=== PATIENT | male | born 1990 | race Caucasian/White ===

== ENCOUNTER 2021-04-02 12:11 | Outpatient (CLI) | payer BC, SELFPAY ==
--- NOTE | 2021-04-02 12:20 | XR_ITS ---
WS: [id number] Lumbar spine, 3 views, 04/02/2021 Clinical Data: LOW BACK PAIN, ACUTE Comparison: None. Findings: No compression fractures or subluxation is seen. No disc space narrowing is seen. The transverse proc esses and SI joints are normal. XR/XR lumbar spine 2-3V* [id number] Impression: Negative lumbar spine.
== END 2021-04-02 12:12 | disposition home or self-care (01) ==
LOC: RAD 12:18
PROVIDERS: PCP Nurse Practitioner Family; Visit Provider Clinical Nurse Specialist Adult Health
DX: M54.5 Low back pain (principal)
CPT/HCPCS: 72100

== ENCOUNTER 2021-05-31 07:02 | Emergency (ER) | payer BC, SELFPAY ==
[2021-05-31 07:12] VITALS: BP 142/93; PULSE 79; RESP 18; TEMP 36.3; O2SAT 98; BMI 47.5
--- NOTE | 2021-05-31 07:37 | CT_ITS ---
WS: [id number] CT ABDOMEN AND PELVIS NONCONTRAST HISTORY: right flank pain TECHNIQUE: Imaging performed through the abdomen and pelvis. Coronal and sagittal reformats are submi tted. All CT scans at [facility] use at least one of these dose optimization techniques: auto mated exposure control; mA and/or kV adjustment per patient size (includes targeted exams where dose is matched to clinical indication); or iterative reconstruction. DLP: 2429.22 mGy.cm COMPARISON: None available. Lower thorax: 3 mm noncalcified RIGHT lower lobe nodule. Heart size is normal. No hiatal hernia. Liver: Extensive diffuse low attenuation throughout the liver from hepatic steatosis. Liver is top no rmal size. No mass or bile duct dilatation. Gallbladder: Normal gallbladder. Pancreas: Normal size and attenuation. Normal pancreatic duct. No pancreatitis or mass. Spleen: Normal. Adrenal glands: Normal. No mass. Right kidney: Normal size kidney. There is mild dilatation of the RIGHT renal pelvis and proximal RIG HT ureter secondary to a 4.4 mm calcification in the proximal ureter. Ureter distal to this calcifica tion is normal caliber. No additional stones. Left kidney: Normal size kidney with no mass or hydronephrosis. Aorta: Normal abdominal aorta, no aneurysm or atherosclerosis. No free fluid, intraperitoneal air or significant lymphadenopathy. GI tract: Normal appendix. No GI tract obstruction. No wall thickening. Abdominal wall: Negative. No hernia. Pelvis: Normal. Osseous structures: Mild disc space narrowing at L5-S1 with foraminal osteophytes. CT/CT kidney stone [id number] IMPRESSION: 1. Mild RIGHT hydroureter ureteronephrosis secondary to a 4.4 mm calcification in the proximal ureter. 2. No additional renal or ureteral calcifications. 3. Normal appendix. 4. Severe hepatic steatosis. 5. Noncalcified 3 mm RIGHT lower lobe pulmonary nodule. 12 month noncontrast c hest CT follow-up can be performed at the discretion of the primary care physic
--- NOTE | 2021-05-31 07:39 | ED_ITS ---
Documented by User: PAPITO Combs 05/31/21 10:06 HPI - Back Pain/Injury General: Chief Complaint: Back Pain/Injury Stated Complaint: Lower Back Pain Time Seen by Provider: 05/31/21 07:05 History of Present Illness: HPI Narrative: Patient is a 30-year-old male who comes to the ED with right lower back/right flank pain. Patient has a history of kidney stones. He says that this pain seems similar to past kidney stones. Symptoms started last night when he went to bed. onset of symptoms was abrupt/sudden and he was feeling 8 out of 10 pain in his right lower back and right flank that he describes as an aching constant pain. He says he could not get comfortable and tossed and turned and move around all night. He got up this morning and he was still having that aching pain. Resting does not help pain and movement does not worsen pain. Here in the ED he rates his pain a 7 out of 10 and its a constant aching pain in his right flank. He endorses having some nausea but denies any emesis. Denies any fever, chills, emesis, abdominal pain, bladder or bowel symptoms. Associated symptoms: Reports nausea; Deny abdominal pain, chills, dysuria, fatigue, fever(s), hematuria or vomiting Review of Systems Const: Denies: fever(s), chills or fatigue Eyes: Denies: change in vision or eye discomfort ENMT: Denies: throat pain, odynophagia, nasal discharge or nasal congestion Card: Denies: chest pain, palpitations, edema, swelling of feet/ankles, dyspnea on exertion or orthopnea Resp: Denies: dyspnea, productive cough or non-productive cough GI: Reports: nausea; Denies: abdominal pain, vomiting, diarrhea, constipation or hematochezia : Reports: flank pain (right flank); Denies: difficulty urinating, dysuria or hematuria Musc: Reports: back pain (right lower back); Denies: neck pain or extremity swelling Skin/Breast: Denies: rash or new lesions Neuro: Denies: headache(s), numbness in extremities or weakness in extremities Physical Exam Narrative: EXAM NARRATIVE: Patient is a 30-year-old male that appears uncomfortable and frequently changing positions during exam to get comfortable. Const: COMMON NORMALS: patient oriented x3 and alert GENERAL APPEARANCE: cooperative and comfortable NUTRITIONAL APPEARANCE: obese HENMT: COMMON NORMALS: normocephalic HEAD & SCALP: normocephalic MOUTH: Normal oral and palatal mucosa present THROAT: posterior oropharynx normal and uvula midline Eye: COMMON NORMALS: Equal, round and reactive pupils present PUPIL: Yes Equal, round and reactive pupils present Neck/C-Spine: COMMON NORMALS: supple GENERAL: Yes normal visual inspection Resp: COMMON NORMALS: normal respiratory effort, No retractions, No use of accessory muscles and clear to auscultation bilaterally AUSCULTATION: clear to auscultation bilaterally Cardio: COMMON NORMALS: regular rate, regular rhythm, S1 normal heart sound present, S2 normal heart sound present, No gallops present (Cardio), No clicks present (Cardio), No murmurs present (Cardio) and Peripheral pulses 2+ throughout RATE: regular rate RHYTHM: regular rhythm HEART SOUNDS: S1 normal heart sound present and S2 normal heart sound present PERIPHERAL PULSES: Peripheral pulses 2+ throughout GI: COMMON NORMALS: Normal to inspection, nondistended, normoactive bowel sounds present, Soft to palpation, non-tender and no masses INSPECTION: Yes central obesity PALPATION: Yes Soft to palpation : COMMON NORMALS: Yes no CVA tenderness BLADDER/KIDNEY EXAM: Yes no CVA tenderness Back/Pelvis: COMMON NORMALS: no CVA tenderness Extremity: COMMON NORMALS: normal to inspection Neuro: COMMON NORMALS: patient oriented x3 and moves all extremities SENSORIUM/ORIENTATION: Yes alert Skin: GENERAL SKIN EXAM: dry skin Course Reevaluation(s): Reevaluation #1: After patient received IV morphine and Zofran his pain improved greatly. He is sitting comfortably on the exam bed and says his pain is very minimal at this point. Time: 09:00 Vital Signs: Vital signs: Vital Signs Temperature 97.9 F 05/31/21 07:52 Pulse Rate 80 05/31/21 09:45 Respiratory Rate 18 05/31/21 09:45 Blood Pressure 142/77 05/31/21 09:45 Pulse Oximetry 98 05/31/21 09:45 MDM - Back Pain/Injury MDM Narrative: Medical decision making narrative: Patient is a 30-year-old male comes to the ED with right lower back/right flank pain. He has a history of kidney stones and says this is similar to his past episodes of kidney stones. Pain was acute in onset late last night. Vitals are stable. Patient appears nontoxic and seems a little uncomfortable and is moving her and frequently changing positions during exam. No CVA tenderness noted and rest of exam was benign. CBC showed white blood cell count 12.4 but the rest of CBC and CMP were unremarkable. UA did show some RBCs, but no signs of infection. CT abdomen showed 4.4mm Right proximal ureter kidney stone patient was given IV 1 L fluids, morphine and Zofran and as symptoms improved greatly. She was having minimal pain after dose of morphine. He was also given dose of tamsulosin while here in the ED. I placed order with case management for patient to get a referral to Dr. Wilde for follow-up on kidney stone. He was discharged home with a prescription for tamsulosin, hydrocodone, Zofran. He was instructed to strain urine to catch stone. Return to ED precautions given. I told manager payment will contact him in the next several days set up an appointment with urologist Dr. Wilde. Patient understood and agree with plan. Lab Data: Attestation: I reviewed the patient's lab results. Labs: Lab Results 05/31/21 05/31/21 05/31/21 08:13 08:13 08:14 WBC 12.4 10^3/uL H 10 ^3/uL (4.0-10.0) RBC 4.99 10^6/uL 10^6 /uL (4.1-5.3) Hgb 15.4 g/dL g/dL (11.7-16.6) Hct 46.7 % % (42.0-52.0) MCV 93.6 fl fl (80-94) MCH 30.9 pg pg (28.0-34.0) MCHC 33.0 g/dL g/dL (30.0-36.0) RDW 13.2 % % (12.1-15.1) Plt Count 227 10^3/cmm 10^3 /cmm (130-400) MPV 11.1 fL H fL (7.4-10.4) Neut % (Auto) 72.3 % % Lymph % (Auto) 17.7 % % [place] % (Auto) 7.0 % % Eos % (Auto) 2.1 % % Baso % (Auto) 0.6 % % Neut # (Auto) 8.93 10^3/uL H 10 ^3/uL (1.8-7.7) Lymph # (Auto) 2.2 10^3/uL 10^3/ uL (0.8-4.8) [place] # (Auto) 0.9 10^3/uL 10^3/ uL (0.2-0.9) Eos # (Auto) 0.3 10^3/uL 10^3/ uL (0.0-0.8) Baso # (Auto) 0.1 10^3/uL 10^3/ uL (0.0-0.1) Nucleated RBC % (a uto) 0 % % Nucleated RBCs # 0.0 /100WBC /100W BC Sodium 138 mmol/L mmol/L (136-145) Potassium 4.5 mmol/L mmol/L (3.5-5.1) Chloride 103 mmol/L mmol/L (98-107) Carbon Dioxide 24 mmol/L mmol/L (22-29) Anion Gap 15.5 (5-19) BUN 12 mg/dL mg/dL (6-20) Creatinine 0.7 mg/dL mg/dL (0.7-1.2) GFR Calculation 132.4 mL/min H mL /min (90-130) Glucose 126 mg/dL H mg/dL (65-115) Calculated Osmolal ity 287 mOsm/kg mOsm/ kg (285-295) Calcium 9.3 mg/dL mg/dL (8.5-10.5) Total Bilirubin 0.3 mg/dL mg/dL (0.15-1.2) AST 26 U/L U/L (0-40) ALT 40 U/L U/L (0-41) Alkaline Phosphata se 80 IU/L IU/L (40-130) Total Protein 6.9 g/dL g/dL (6.6-8.7) Albumin 4.0 g/dL g/dL (3.5-5.2) Globulin 2.9 g/dL g/dL (1.3-4.6) Urine Color Dark yellow (Yellow) Urine Appearance Clear (CLEAR) Urine pH 5 (5-7) Ur Specific Gravit y 1.020 (1.005-1.030) Urine Protein Neg (Negative) Urine Glucose (UA) Norm (Normal) Urine Ketones Negative (Negative) Urine Blood 3+ H (Negative) Urine Nitrate Negative (Negative) Urine Bilirubin Neg (Negative) Urine Urobilinogen Norm mg/dL mg/dL (Negative) Ur Leukocyte Greer ase Negative (Negative) Urine RBC 10-15 /hpf H /hpf (0-2) Urine WBC 0-4 /hpf H /hpf (0-5) Ur Squamous Epith Cells None /hpf /hpf (0-5) Amorphous Sediment Not Reportable Urine Bacteria 1+ /hpf H /hpf (NONE) Urine Mucus Trace /hpf /hpf Imaging Data^: CT Abd/Pel: Attestation: I personally reviewed and interpreted this imaging study as follows: Radiologist's impression: [id number] [address] [address] Scan Report Signed Patient: Nixon Cook Unit #: [id number] : 1990 Age/Sex: 30 / M ADM Date: 05/31/21 Loc: ER Room/Bed: Attending Dr: Ordering Provider/Ordering MD: Nitish Marcos Date of Service: 05/31/21 Procedure(s): CT kidney stone 90117 Accession Number(s): [id number] Report Number: [id number] WS: [id number] CT ABDOMEN AND PELVIS NONCONTRAST HISTORY: right flank pain TECHNIQUE: Imaging performed through the abdomen and pelvis. Coronal and sagittal reformats are submitted. All CT scans at [facility] use at least one of these dose optimization techniques: automated exposure control; mA and/or kV adjustment per patient size (includes targeted exams where dose is matched to clinical indication); or iterative reconstruction. DLP: 2429.22 mGy.cm COMPARISON: None available. Lower thorax: 3 mm noncalcified RIGHT lower lobe nodule. Heart size is normal. No hiatal hernia. Liver: Extensive diffuse low attenuation throughout the liver from hepatic steatosis. Liver is top normal size. No mass or bile duct dilatation. Gallbladder: Normal gallbladder. Pancreas: Normal size and attenuation. Normal pancreatic duct. No pancreatitis or mass. Spleen: Normal. Adrenal glands: Normal. No mass. Right kidney: Normal size kidney. There is mild dilatation of the RIGHT renal pelvis and proximal RIGHT ureter secondary to a 4.4 mm calcification in the proximal ureter. Ureter distal to this calcification is normal caliber. No additional stones. Left kidney: Normal size kidney with no mass or hydronephrosis. Aorta: Normal abdominal aorta, no aneurysm or atherosclerosis. No free fluid, intraperitoneal air or significant lymphadenopathy. GI tract: Normal appendix. No GI tract obstruction. No wall thickening. Abdominal wall: Negative. No hernia. Pelvis: Normal. Osseous structures: Mild disc space narrowing at L5-S1 with foraminal osteophytes. CT/CT kidney stone [id number] IMPRESSION: 1. Mild RIGHT hydroureter ureteronephrosis secondary to a 4.4 mm calcification in the proximal ureter. 2. No additional renal or ureteral calcifications. 3. Normal appendix. 4. Severe hepatic steatosis. 5. Noncalcified 3 mm RIGHT lower lobe pulmonary nodule. [address] follow-up can be performed at the discretion of the primary care physician. Dictated By: Carmen Leyva DO Signed By: Carmen Leyva DO Signed Date/Time: 03/13 DD/ 7 Discharge Plan Discharge Patient Disposition: Home Clinical Impression: Kidney stone on right side Condition: Stable Prescriptions: New tamsulosin 0.4 mg capsule 0.4 mg PO DAILY Qty: 20 RF: 0 ondansetron 4 mg tablet,disintegrating 4 mg PO Q8H PRN (Reason: nausea and vomiting) Qty: 12 RF: 0 Discharge Orders: Discharge ED (Routine); Ordered 05/31/21 Ordered By: Nitish Marcos Referrals: Susan Ramos BUSINESS PROCESS SPECIALIST [Primary Care Provider] - Discharge Diet: Regular Discharge Activity: Increase activity as tolerated Patient Instructions: Kidney Stones (ED), How to Strain Your Urine (ED), Opioid Safety Activity Restrictions/Additional Instructions: Follow-up with medical provider as directed. Case management should be contacting you in the next several days to set up an appointment with Dr. Wilde the urologist. Strain urine to catch stone and drink lots of fluid to stay hydrated and help pass stone. Take medications as prescribed. You can take ibuprofen or Aleve for any pain or fevers as well. Return to the ER or your medical provider if condition worsens. Please read and understand discharge instructions. If any questions, please ask. Coding Level of Care Code ED Lab Manager for Chg Fwd Exam Comprehensive Documented by User: Alvaro Burrows DO 05/31/21 14:22 HPI - Back Pain/Injury General: Chief Complaint: Back Pain/Injury Stated Complaint: Lower Back Pain Time Seen by Provider: 05/31/21 07:05 Course Vital Signs: Vital signs: Vital Signs Temperature 97.9 F 05/31/21 07:52 Pulse Rate 80 05/31/21 09:45 Respiratory Rate 18 05/31/21 09:45 Blood Pressure 142/77 05/31/21 09:45 Pulse Oximetry 98 05/31/21 09:45 MDM - Back Pain/Injury MDM Narrative: Medical decision making narrative: Chart reviewed Assessment and plan Lab Data: Labs: Lab Results 05/31/21 05/31/21 05/31/21 08:13 08:13 08:14 WBC 12.4 10^3/uL H 10 ^3/uL (4.0-10.0) RBC 4.99 10^6/uL 10^6 /uL (4.1-5.3) Hgb 15.4 g/dL g/dL (11.7-16.6) Hct 46.7 % % (42.0-52.0) MCV 93.6 fl fl (80-94) MCH 30.9 pg pg (28.0-34.0) MCHC 33.0 g/dL g/dL (30.0-36.0) RDW 13.2 % % (12.1-15.1) Plt Count 227 10^3/cmm 10^3 /cmm (130-400) MPV 11.1 fL H fL (7.4-10.4) Neut % (Auto) 72.3 % % Lymph % (Auto) 17.7 % % [place] % (Auto) 7.0 % % Eos % (Auto) 2.1 % % Baso % (Auto) 0.6 % % Neut # (Auto) 8.93 10^3/uL H 10 ^3/uL (1.8-7.7) Lymph # (Auto) 2.2 10^3/uL 10^3/ uL (0.8-4.8) [place] # (Auto) 0.9 10^3/uL 10^3/ uL (0.2-0.9) Eos # (Auto) 0.3 10^3/uL 10^3/ uL (0.0-0.8) Baso # (Auto) 0.1 10^3/uL 10^3/ uL (0.0-0.1) Nucleated RBC % (a uto) 0 % % Nucleated RBCs # 0.0 /100WBC /100W BC Sodium 138 mmol/L mmol/L (136-145) Potassium 4.5 mmol/L mmol/L (3.5-5.1) Chloride 103 mmol/L mmol/L (98-107) Carbon Dioxide 24 mmol/L mmol/L (22-29) Anion Gap 15.5 (5-19) BUN 12 mg/dL mg/dL (6-20) Creatinine 0.7 mg/dL mg/dL (0.7-1.2) GFR Calculation 132.4 mL/min H mL /min (90-130) Glucose 126 mg/dL H mg/dL (65-115) Calculated Osmolal ity 287 mOsm/kg mOsm/ kg (285-295) Calcium 9.3 mg/dL mg/dL (8.5-10.5) Total Bilirubin 0.3 mg/dL mg/dL (0.15-1.2) AST 26 U/L U/L (0-40) ALT 40 U/L U/L (0-41) Alkaline Phosphata se 80 IU/L IU/L (40-130) Total Protein 6.9 g/dL g/dL (6.6-8.7) Albumin 4.0 g/dL g/dL (3.5-5.2) Globulin 2.9 g/dL g/dL (1.3-4.6) Urine Color Dark yellow (Yellow) Urine Appearance Clear (CLEAR) Urine pH 5 (5-7) Ur Specific Gravit y 1.020 (1.005-1.030) Urine Protein Neg (Negative) Urine Glucose (UA) Norm (Normal) Urine Ketones Negative (Negative) Urine Blood 3+ H (Negative) Urine Nitrate Negative (Negative) Urine Bilirubin Neg (Negative) Urine Urobilinogen Norm mg/dL mg/dL (Negative) Ur Leukocyte Greer ase Negative (Negative) Urine RBC 10-15 /hpf H /hpf (0-2) Urine WBC 0-4 /hpf H /hpf (0-5) Ur Squamous Epith Cells None /hpf /hpf (0-5) Amorphous Sediment Not Reportable Urine Bacteria 1+ /hpf H /hpf (NONE) Urine Mucus Trace /hpf /hpf Discharge Plan Discharge Patient Disposition: Home Clinical Impression: Kidney stone on right side Condition: Stable Prescriptions: New tamsulosin 0.4 mg capsule 0.4 mg PO DAILY Qty: 20 RF: 0 ondansetron 4 mg tablet,disintegrating 4 mg PO Q8H PRN (Reason: nausea and vomiting) Qty: 12 RF: 0 Discharge Orders: Discharge ED (Routine); Ordered 05/31/21 Ordered By: Nitish Marcos Referrals: Susan Ramos BUSINESS PROCESS SPECIALIST [Primary Care Provider] - Discharge Diet: Regular Discharge Activity: Increase activity as tolerated Patient Instructions: Kidney Stones (ED), How to Strain Your Urine (ED), Opioid Safety Activity Restrictions/Additional Instructions: Follow-up with medical provider as directed. Case management should be contacting you in the next several days to set up an appointment with Dr. Wilde the urologist. Strain urine to catch stone and drink lots of fluid to stay hydrated and help pass stone. Take medications as prescribed. You can take ibuprofen or Aleve for any pain or fevers as well. Return to the ER or your medical provider if condition worsens. Please read and understand discharge instructions. If any questions, please ask. Coding Level of Care Code ED Lab Manager for [place] Fwd Exam Comprehensive
[2021-05-31 07:52] VITALS: BP 116/92; PULSE 87; RESP 18; TEMP 36.6; O2SAT 98
[2021-05-31 08:24] LABS: Basophils # 0.1 10^3/uL (0.0-0.1); Basophils % 0.6 %; Eosinophils # 0.3 10^3/uL (0.0-0.8); Eosinophils % 2.1 %; Hematocrit 46.7 % (42.0-52.0); Hemoglobin 15.4 g/dL (11.7-16.6); Lymphocytes # 2.2 10^3/uL (0.8-4.8); Lymphocytes % 17.7 %; Mean Corpuscular Hemoglobin 30.9 pg (28.0-34.0); Mean Corpuscular Volume 93.6 fl (80-94); Mean Platelet Volume 11.1 fL (7.4-10.4); Monocytes # 0.9 10^3/uL (0.2-0.9); Neutrophils # 8.93 10^3/uL (1.8-7.7); Neutrophils % 72.3 %; Nucleated Red Blood Cells % 0 %; Platelet Count 227 10^3/cmm (130-400); Red Blood Count 4.99 10^6/uL (4.1-5.3); Red Cell Distribution Width 13.2 % (12.1-15.1); White Blood Count 12.4 10^3/uL (4.0-10.0)
[2021-05-31] MEDS: sodium chloride 0.9% 1,000 ML 999 ML IV (08:28)
[2021-05-31] MEDS: ondansetron 2 mg/ML SDV 2 mL 4 MG IVP (08:29)
[2021-05-31 08:30] VITALS: RESP 19; O2SAT 97
[2021-05-31] MEDS: morphine 4 mg/mL SDV 1 mL IVP (08:30)
[2021-05-31 08:40] LABS: Add Urine Microscopic? YES; Bilirubin Urine Neg (Negative); Blood Urine 3+ (Negative); Glucose Urine UA Norm (Normal); Ketones Urine Negative (Negative); Leukocyte Esterase Urine Negative (Negative); Nitrate Urine Negative (Negative); Protein Urine Neg (Negative); Urine Appearance Clear (CLEAR); Urine Color Dark Yellow (Yellow); Urobilinogen Urine Norm (Negative); pH Urine 5 (5-7)
[2021-05-31 08:41] LABS: Add Urine Culture? Yes; Bacteria Urine 1+ /hpf; Mucus Urine TRACE /hpf; WBC Urine 0-4 /hpf (0-5)
[2021-05-31 08:45] LABS: Alanine Aminotransferase 40 U/L (0-41); Alkaline Phosphatase 80 IU/L (40-130); Anion Gap 15.5 (5-19); Aspartate Amino Transferase 26 U/L (0-40); Blood Urea Nitrogen 12 mg/dL (6-20); Calcium 9.3 mg/dL (8.5-10.5); Carbon Dioxide 24 mmol/L (22-29); Chloride 103 mmol/L (98-107); Globulin 2.9 g/dL (1.3-4.6); Glomerular Filtration Rate 132.4 mL/min (90-130); Glucose 126 mg/dL (65-115); Osmolality Calculated 287 mOsm/kg (285-295); Potassium 4.5 mmol/L (3.5-5.1); Sodium 138 mmol/L (136-145); Total Bilirubin 0.3 mg/dL (0.15-1.2); Total Protein 6.9 g/dL (6.6-8.7)
[2021-05-31] MEDS: tamsulosin 0.4 mg Capsule PO (09:31)
[2021-05-31 09:32] VITALS: BP 142/77; PULSE 84; RESP 18; O2SAT 99
[2021-05-31 09:45] VITALS: BP 142/77; PULSE 80; RESP 18; O2SAT 98
--- NOTE | 2021-06-01 10:00 | DCPLANNER ---
camp manager had message to schedule a follow up appointment for patient with Dr. Wilde. camp manager called the office of Dr. Wilde, spoke with Veda, gave clinic patients information. camp manager was told that patients information would be printed and reviewed. Clinic will call patient with appointment information.
--- NOTE | 2021-06-02 15:27 | DCPLANNER ---
Patient has a follow up appointment scheduled for Monday, June 04, 2021 at 9:[address] Wilde, clinic will call patient with appointment information.
--- NOTE | 2021-06-10 16:25 | DCPLANNER ---
Patient had a follow up appointment scheduled for 06.04.[address] Wilde - patient did attend appointment.
== END 2021-05-31 09:46 | disposition home or self-care (01) ==
PROVIDERS: Emergency Provider Physician Assistant; PCP Nurse Practitioner Family
DX: N20.0 Calculus of kidney (principal)
CPT/HCPCS: 74176; 80053; 81001; 85025; 87086; 96361; 96374; 96375; 99284; J2270; J2405; J7030

== ENCOUNTER 2021-06-04 07:20 | Outpatient (CLI) | payer BC, SELFPAY ==
--- NOTE | 2021-06-04 08:00 | XR_ITS ---
WS: [id number] KUB, AP view, 06/04/2021 Clinical Data: kidney stone Comparison: None. Findings: No abnormal intraabdominal masses or calcifications are seen. There is no dilatated small bowel or ev idence of obstruction. There is a moderate amount of fecal material in the colon. XR/XR KUB [id number] Impression: Negative KUB.
== END 2021-06-04 07:21 | disposition home or self-care (01) ==
LOC: RAD 07:22
PROVIDERS: PCP Nurse Practitioner Family; Visit Provider Urology
DX: N20.0 Calculus of kidney (principal)
CPT/HCPCS: 74018; 81003

== ENCOUNTER 2021-06-10 07:09 | Outpatient (CLI) | payer BC, SELFPAY ==
--- NOTE | 2021-06-10 07:15 | XR_ITS ---
WS: [id number] Exam: XR KUB [id number] Date/Time of Exam: 06/10/2021 7:15 AM Reason For Exam: URETERAL STONE Comparison 06/04/2021. No bowel obstruction or free air. No obvious calcifications projected over the region of the kidneys. No organ enlargement seen. Regional bony elements are intact. XR/XR KUB [id number] IMPRESSION: 1. Negative KUB.
== END 2021-06-10 07:10 | disposition home or self-care (01) ==
LOC: RAD 07:10
PROVIDERS: PCP Nurse Practitioner Family; Visit Provider Urology
DX: N20.1 Calculus of ureter (principal)
CPT/HCPCS: 74018; 81003

== ENCOUNTER 2021-06-14 19:08 | Observation (INO) | payer BC, SELFPAY ==
[2021-06-14 19:15] VITALS: BP 146/98; PULSE 98; RESP 18; TEMP 37; O2SAT 97; BMI 42.5
[2021-06-14 20:31] LABS: Add Urine Microscopic? YES; Bilirubin Urine 1+ (Negative); Blood Urine 3+ (Negative); Glucose Urine UA Norm (Normal); Ketones Urine 1+ (Negative); Leukocyte Esterase Urine Trace (Negative); Nitrate Urine Positive (Negative); Protein Urine 1+ (Negative); Specific Gravity, Urine 1.025 (1.005-1.030); Urine Appearance Cloudy (CLEAR); Urine Color Brown (Yellow); Urobilinogen Urine 4 mg/dL (Negative); pH Urine 5 (5-7)
[2021-06-14 20:32] LABS: Add Urine Culture? No; Bacteria Urine 1+ /hpf; Calcium Oxalate Crystals Urine 0-4 /hpf; RBC Urine TOO NUMEROUS TO CNT /hpf (0-2); Squamous Epithelial Cell Urine 15-25 /hpf (0-5)
[2021-06-14 22:18] LABS: Basophils # 0.1 10^3/uL (0.0-0.1); Basophils % 0.4 %; Eosinophils # 0.2 10^3/uL (0.0-0.8); Hematocrit 45.3 % (42.0-52.0); Hemoglobin 15.3 g/dL (11.7-16.6); Lymphocytes # 2.5 10^3/uL (0.8-4.8); Mean Corpuscular HGB Conc 33.8 g/dL (30.0-36.0); Mean Corpuscular Hemoglobin 30.8 pg (28.0-34.0); Mean Corpuscular Volume 91.3 fl (80-94); Mean Platelet Volume 11.8 fL (7.4-10.4); Monocytes # 1.8 10^3/uL (0.2-0.9); Monocytes % 9.7 %; Neutrophils # 14.22 10^3/uL (1.8-7.7); Neutrophils % 75.4 %; Nucleated Red Blood Cells % 0 %; Platelet Count 247 10^3/cmm (130-400); Red Blood Count 4.96 10^6/uL (4.1-5.3); Red Cell Distribution Width 13.2 % (12.1-15.1); White Blood Count 18.9 10^3/uL (4.0-10.0)
--- NOTE | 2021-06-14 22:19 | W.ED.GENADLT ---
Documented by User: Ivan Bernstein MD 06/14/21 23:04 HPI - General Adult General: Chief complaint: Back Pain/Injury Stated complaint: ADB Pain (Kidney Stones) Time Seen by Provider: 06/14/21 21:36 History of Present Illness: HPI narrative: HPI: [30] yo patient w/ hx of renal colic presenting to the ED w/ R-sided flank pain x 3 hrs while deer hutning. Patient describes the pain as sudden onset severe intermittent crampy pain lasting for 5-10 mins at a time. +N/+ since onset of symptoms and has not been able to tolerate PO. No prior abdominal surgeries. Denies fever/chill, dysuria/hematuria/polyuria, diarrhea, melena/hematochezia/ or hematemesis. No associated chest pain, SOB, palpitations, exertional shortness of breath and chest pain, or pleuritic chest pain. Onset: 3 hrs ago ago Duration: ongoing Location: home Severity: moderate Review of Systems Narrative: Constitutional: No fever, no chills. HEENT: No vision changes CV: No chest pain, no palpitations PULM: No productive cough, no dyspnea. GI: No abdominal pain, +N/+V/-D. +R-sided flank pain : No Dysuria, []hematuria MSKEL: No muscle pain SKIN: No new rashes, no lesions. NEURO: No headache, no focal weakness. HEME: No visible bruises PSYCH: Normal mood PFSH ED PFSH: Medical History Right ureteral stone Family History Other Cancer Diabetes Social History Alcohol intake: never Marital status: Current occupational status: employed Physical Exam Narrative: EXAM NARRATIVE: Head: Atraumatic Eyes: PERRL, conjunctiva without injection, eyes tracking ENT: Mucous membrane moist NECK: Supple without lymphadenopathy LUNGS: LCTAB CV: RRR ABDOMEN: Soft, diffuse abdominal tenderness worse in the [] flank, no guarding or rebound tenderness, no McBurney?s point tenderness, no Rovsing/Obturator signs, no Aly's sign, mild [][]-sided CVA tenderness EXTREMITY: Normal ROM SKIN: No rash or erythema NEURO: Awake and alert. No focal weakness PSYCH: Cooperative mood and affect Course Vital Signs: Vital signs: Vital Signs Temperature 98.6 F 06/14/21 19:15 Pulse Rate 85 06/14/21 23:17 Respiratory Rate 18 06/14/21 19:15 Blood Pressure 120/65 06/14/21 23:17 Pulse Oximetry 98 06/14/21 23:17 MDM - General Adult MDM Narrative: Medical decision making narrative: [30]yo patient w/ hx of renal colic followed by Dr. Wilde presenting R-sided flank pain with symptoms consistent with prior presentations of renal colic. Given History and Exam I have lower suspicion for atypical appendicitis, genital torsion, acute cholecystitis, AAA, Aortic Dissection, Serious Bacterial Illness or other emergent intra abdominal pathology. UA showed nitrate and LE with 2+ blood and WBC of 18, will evaluate for infected stone. Workup: CBC, BMP, UA, CT abdomen+pelvis w/ contrast Interventions: IVF, antiemetics, pain medicine, ceftriaxone and vancomycin Case signed out to Dr. Laws pending CT evaluation and reassessment Lab Data: Labs: Lab Results 06/14/21 06/14/21 06/14/21 19:46 20:55 20:55 WBC 18.9 10^3/uL H 10 ^3/uL (4.0-10.0) RBC 4.96 10^6/uL 10^6 /uL (4.1-5.3) Hgb 15.3 g/dL g/dL (11.7-16.6) Hct 45.3 % % (42.0-52.0) MCV 91.3 fl fl (80-94) MCH 30.8 pg pg (28.0-34.0) MCHC 33.8 g/dL g/dL (30.0-36.0) RDW 13.2 % % (12.1-15.1) Plt Count 247 10^3/cmm 10^3 /cmm (130-400) MPV 11.8 fL H fL (7.4-10.4) Neut % (Auto) 75.4 % % Lymph % (Auto) 13.0 % % [place] % (Auto) 9.7 % % Eos % (Auto) 1.0 % % Baso % (Auto) 0.4 % % Neut # (Auto) 14.22 10^3/uL H 1 0^3/uL (1.8-7.7) Lymph # (Auto) 2.5 10^3/uL 10^3/ uL (0.8-4.8) [place] # (Auto) 1.8 10^3/uL H 10^ 3/uL (0.2-0.9) Eos # (Auto) 0.2 10^3/uL 10^3/ uL (0.0-0.8) Baso # (Auto) 0.1 10^3/uL 10^3/ uL (0.0-0.1) Nucleated RBC % (a uto) 0 % % Nucleated RBCs # 0.0 /100WBC /100W BC Sodium 139 mmol/L mmol/L (136-145) Potassium 3.9 mmol/L mmol/L (3.5-5.1) Chloride 102 mmol/L mmol/L (98-107) Carbon Dioxide 23 mmol/L mmol/L (22-29) Anion Gap 17.9 (5-19) BUN 14 mg/dL mg/dL (6-20) Creatinine 0.9 mg/dL mg/dL (0.7-1.2) GFR Calculation 99.1 mL/min mL/mi n (90-130) Glucose 127 mg/dL H mg/dL (65-115) Calculated Osmolal ity 290 mOsm/kg mOsm/ kg (285-295) Calcium 8.6 mg/dL mg/dL (8.5-10.5) Total Bilirubin 0.4 mg/dL mg/dL (0.15-1.2) AST 34 U/L U/L (0-40) ALT 48 U/L H U/L (0-41) Alkaline Phosphata se 85 IU/L IU/L (40-130) Total Protein 7.1 g/dL g/dL (6.6-8.7) Albumin 4.1 g/dL g/dL (3.5-5.2) Globulin 3.0 g/dL g/dL (1.3-4.6) Lipase 20 U/L U/L (13-60) Urine Color Brown (Yellow) Urine Appearance Cloudy (CLEAR) Urine pH 5 (5-7) Ur Specific Gravit y 1.025 (1.005-1.030) Urine Protein 1+ H (Negative) Urine Glucose (UA) Norm (Normal) Urine Ketones 1+ H (Negative) Urine Blood 3+ H (Negative) Urine Nitrate Positive H (Negative) Urine Bilirubin 1+ H (Negative) Urine Urobilinogen 4 mg/dL H mg/dL (Negative) Ur Leukocyte Greer ase Trace H (Negative) Urine RBC Too numerous to c nt /hpf H /hpf (0-2) Urine WBC 10-15 /hpf H /hpf (0-5) Ur Squamous Epith Cells 15-25 /hpf H /hpf (0-5) Calcium Oxalate Cr ystal 0-4 /hpf H /hpf Amorphous Sediment Not Reportable Urine Bacteria 1+ /hpf H /hpf (NONE) Discharge Plan Discharge Patient Disposition: Admitted As Inpatient Clinical Impression: Right ureteral stone, Acute cystitis Condition: Stable Coding Level of Care Code ED [facility] for Chg Fwd Documented by User: Manny Laws MD 06/15/21 00:03 HPI - General Adult General: Chief complaint: Back Pain/Injury Stated complaint: ADB Pain (Kidney Stones) Time Seen by Provider: 06/14/21 21:36 PFSH ED PFSH: Medical History Right ureteral stone Family History Other Cancer Diabetes Social History Alcohol intake: never Marital status: Current occupational status: employed Course Vital Signs: Vital signs: Vital Signs Temperature 98.6 F 06/14/21 19:15 Pulse Rate 85 06/14/21 23:17 Respiratory Rate 18 06/14/21 19:15 Blood Pressure 120/65 06/14/21 23:17 Pulse Oximetry 98 06/14/21 23:17 MDM - General Adult MDM Narrative: Medical decision making narrative: Patient presents here with flank pain does have a kidney stone along with acute cystitis I spoke to Dr. Wilde who recommended admission will admit to Dr. Frederick started on IV antibiotics patient is to strain his urine while admitted. Lab Data: Labs: Lab Results 06/14/21 06/14/21 06/14/21 19:46 20:55 20:55 WBC 18.9 10^3/uL H 10 ^3/uL (4.0-10.0) RBC 4.96 10^6/uL 10^6 /uL (4.1-5.3) Hgb 15.3 g/dL g/dL (11.7-16.6) Hct 45.3 % % (42.0-52.0) MCV 91.3 fl fl (80-94) MCH 30.8 pg pg (28.0-34.0) MCHC 33.8 g/dL g/dL (30.0-36.0) RDW 13.2 % % (12.1-15.1) Plt Count 247 10^3/cmm 10^3 /cmm (130-400) MPV 11.8 fL H fL (7.4-10.4) Neut % (Auto) 75.4 % % Lymph % (Auto) 13.0 % % [place] % (Auto) 9.7 % % Eos % (Auto) 1.0 % % Baso % (Auto) 0.4 % % Neut # (Auto) 14.22 10^3/uL H 1 0^3/uL (1.8-7.7) Lymph # (Auto) 2.5 10^3/uL 10^3/ uL (0.8-4.8) [place] # (Auto) 1.8 10^3/uL H 10^ 3/uL (0.2-0.9) Eos # (Auto) 0.2 10^3/uL 10^3/ uL (0.0-0.8) Baso # (Auto) 0.1 10^3/uL 10^3/ uL (0.0-0.1) Nucleated RBC % (a uto) 0 % % Nucleated RBCs # 0.0 /100WBC /100W BC Sodium 139 mmol/L mmol/L (136-145) Potassium 3.9 mmol/L mmol/L (3.5-5.1) Chloride 102 mmol/L mmol/L (98-107) Carbon Dioxide 23 mmol/L mmol/L (22-29) Anion Gap 17.9 (5-19) BUN 14 mg/dL mg/dL (6-20) Creatinine 0.9 mg/dL mg/dL (0.7-1.2) GFR Calculation 99.1 mL/min mL/mi n (90-130) Glucose 127 mg/dL H mg/dL (65-115) Calculated Osmolal ity 290 mOsm/kg mOsm/ kg (285-295) Calcium 8.6 mg/dL mg/dL (8.5-10.5) Total Bilirubin 0.4 mg/dL mg/dL (0.15-1.2) AST 34 U/L U/L (0-40) ALT 48 U/L H U/L (0-41) Alkaline Phosphata se 85 IU/L IU/L (40-130) Total Protein 7.1 g/dL g/dL (6.6-8.7) Albumin 4.1 g/dL g/dL (3.5-5.2) Globulin 3.0 g/dL g/dL (1.3-4.6) Lipase 20 U/L U/L (13-60) Urine Color Brown (Yellow) Urine Appearance Cloudy (CLEAR) Urine pH 5 (5-7) Ur Specific Gravit y 1.025 (1.005-1.030) Urine Protein 1+ H (Negative) Urine Glucose (UA) Norm (Normal) Urine Ketones 1+ H (Negative) Urine Blood 3+ H (Negative) Urine Nitrate Positive H (Negative) Urine Bilirubin 1+ H (Negative) Urine Urobilinogen 4 mg/dL H mg/dL (Negative) Ur Leukocyte [place] a[place] Trace H (Negative) Urine RBC Too numerous to c nt /hpf H /hpf (0-2) Urine WBC 10-15 /hpf H /hpf (0-5) Ur Squamous Epith Cells 15-25 /hpf H /hpf (0-5) Calcium Oxalate Cr ystal 0-4 /hpf H /hpf Amorphous Sediment Not Reportable Urine Bacteria 1+ /hpf H /hpf (NONE) Imaging Data^: CT Abd/Pel: Attestation: I personally reviewed and interpreted this imaging study as follows: Radiologist's impression: [address] [place] [address] [place] [address] CT Scan Report Signed Patient: Nixon Cook Unit #: [id number] : 1990 Age/Sex: 30 / M ADM Date: 06/14/21 Loc: ER Room/Bed: Attending Dr: Ordering Provider/Ordering MD: Ivan Bernstein MD Date of Service: 06/14/21 Procedure(s): CT abdomen pelvis w con* [id number] Accession Number(s): [id number] Report Number: [id number] PROCEDURE INFORMATION: Exam: CT Abdomen And Pelvis With Contrast Exam date and time: 06/14/2021 10:21 PM Age: 30 years old Clinical indication: Abdominal pain; Localized; Right; Additional info: Eval for infected stone TECHNIQUE: Imaging protocol: Computed tomography of the abdomen and pelvis with contrast. Radiation optimization: All CT scans at this facility use at least one of these dose optimization techniques: automated exposure control; mA and/or kV adjustment per patient size (includes targeted exams where dose is matched to clinical indication); or iterative reconstruction. Contrast material: OMNI 350; Contrast volume: 95 ml; Contrast route: INTRAVENOUS (IV); COMPARISON: CR XR KUB [id number] 06/10/2021 7:21 AM RADIATION DOSE METRICS: Total DLP (mGy-cm): 2140.65 FINDINGS: Liver: Hepatic steatosis. Gallbladder and bile ducts: Normal. No calcified stones. No ductal dilation. Pancreas: Normal. No ductal dilation. Spleen: Normal. No splenomegaly. Adrenal glands: Normal. No mass. Kidneys and ureters: Right distal ureter 8 mm calculus with mild hydronephrosis and hydroureter. Stomach and bowel: Unremarkable. No obstruction. No mucosal thickening. Appendix: No evidence of appendicitis. Intraperitoneal space: Unremarkable. No free air. No significant fluid collection. Vasculature: Unremarkable. No abdominal aortic aneurysm. Lymph nodes: Unremarkable. No enlarged lymph nodes. Urinary bladder: Unremarkable as visualized. Reproductive: Unremarkable as visualized. Bones/joints: Unremarkable. No acute fracture. Soft tissues: Unremarkable. CT/CT abdomen pelvis w con* [id number] IMPRESSION: 1. Right distal ureter 8 mm calculus with mild hydronephrosis and hydroureter. 2. Hepatic steatosis. Radiation Dose CTDIVOL = (mGy): DLP = 2140.65 (mGy-cm) Dictated By: Lex Diaz MD Signed By: Lex Diaz MD Signed Date/Time: 06/14/21 0464 DD/ 20 Discharge Plan Discharge Patient Disposition: Admitted As Inpatient Clinical Impression: Right ureteral stone, Acute cystitis Condition: Stable Coding Level of Care Code ED [facility] for Kelby Bean
[2021-06-14] MEDS: sodium chloride 0.9% 1,000 ML 999 ML IV (22:24)
[2021-06-14] MEDS: ondansetron 2 mg/ML SDV 2 mL 4 MG IVP (22:25)
[2021-06-14] MEDS: morphine 4 mg/mL SDV 1 mL IVP (22:25)
[2021-06-14] MEDS: ketorolac 30 mg/mL INJ IVP (22:26)
[2021-06-14] MEDS: acetaminophen 500 mg Tablet 1000 MG PO (22:26)
[2021-06-14] MEDS: iohexol 350 mg/mL 100 mL Btl IV (22:35)
[2021-06-14 22:44] LABS: Alanine Aminotransferase 48 U/L (0-41); Albumin Level 4.1 g/dL (3.5-5.2); Alkaline Phosphatase 85 IU/L (40-130); Anion Gap 17.9 (5-19); Aspartate Amino Transferase 34 U/L (0-40); Blood Urea Nitrogen 14 mg/dL (6-20); Calcium 8.6 mg/dL (8.5-10.5); Carbon Dioxide 23 mmol/L (22-29); Chloride 102 mmol/L (98-107); Glomerular Filtration Rate 99.1 mL/min (90-130); Glucose 127 mg/dL (65-115); Lipase 20 U/L (13-60); Osmolality Calculated 290 mOsm/kg (285-295); Potassium 3.9 mmol/L (3.5-5.1); Sodium 139 mmol/L (136-145); Total Bilirubin 0.4 mg/dL (0.15-1.2); Total Protein 7.1 g/dL (6.6-8.7)
[2021-06-14 23:17] VITALS: BP 120/65; PULSE 85; O2SAT 98
[2021-06-14] MEDS: vancomycin 1,000 MG in sodium chloride 0.9% 250 ML 250 MG IV (23:49)
[2021-06-15] VITALS (17 sets, daily range): BP systolic 106–155; BP diastolic 54–92; PULSE 76–101; RESP 14–20; TEMP 36.2–37.3; O2SAT 90–98; BMI 42.5
--- NOTE | 2021-06-15 | SCC_ITS ---
Procedure Done: 1. Cystoscopy, RIGHT retrograde ureteropyelogram 2. RIGHT ureteroscopy laser lithotripsy stent (7 [place] by 30 cm double-pigtail no string) 41.3 seconds of fluoroscopic guidance, for a cumulative dose of 35.37 mGy, was provided to Dr. Mak by the radiology department. C-arm images of the abdomen were saved for the patient's permanent record. FELISHAD
[2021-06-15] MEDS: levofloxacin-dextrose 5 % 750 MG/150 ML PREMIX 100 MG IV (01:00)
[2021-06-15] MEDS: sodium chloride 0.9% 1,000 ML 999 ML IV (01:01)
[2021-06-15] MEDS: HYDROmorphone 1 mg/mL INJ 1 mL IVP (01:31)
--- NOTE | 2021-06-15 04:30 | P.HP_ITS ---
Providers/Chief Complaint Admitting Physician: Timbo Wilde MD Primary Care Provider: ANGELLA Santizo Chief Complaint: Right ureteral calculus with acute cystitis History of Present Illness Nixon Cook is a 30 year old male well-known to me for history of urolithiasis. I first evaluated him in early May millimeter RIGHT distal ureteral stone but ultimately passed. At that time there was no evidence of infection. CT scan demonstrated on the study he was conservatively. On follow-up visit eleven 1820 stone could no longer be seen on KUB. Follow-up set for a confirmatory KUB in approximately 1 month. He was admitted through the emergency department last night with complaints of new onset acute right-sided flank pain suspicious for renal colic. I been ongoing for approximately 3 hours. Was severe. No fever or chills associated with it. ED work-up: UA: 10-15 white cells, nitrite positive, TNTC RBCs. Electrolytes: Creatinine 0.9, normal potassium, normal liver functions. CBC: White count 18.9 CT scan: RIGHT distal stone with mild hydronephrosis hydroureter. Stone was calculated to be approximately [address] scan from last night. Upon my review of the films I think this is the same stone that was seen previously measuring somewhere between his initial size estimation of 4.4 mm and last nig ht's measurement. On review of the old CT scan there was no evidence of an additional stone in the right kidney. Patient did not appear to be septic. Because of the concern for pyuria and elevated white count he was admitted to the hospital for IV antibiotics and close observation. It was felt that it would be required. We discussed his options with emphasis on persistent stone, failed prolonged conservative management, and now the presence of a UTI. I recommended ureteroscopic treatment of the stone if he is doing well and just a stent placement if hemodynamically there is evidence of progression of UTI. He has been treated with antibiotics upon admission so I think it safe to make an attempt at the stone. Full discussion regarding the procedure itself with benefits risks potential complications potential staged with stenting first and ureteroscopy later, perioperative expectations. Informed consent was obtained. Review of Systems Const: Denies: fever(s) or chills Eyes: Denies: change in vision ENMT: Denies: hoarseness Card: Denies: chest pain or palpitations Resp: Denies: dyspnea, productive cough, non-productive cough or wheezing GI: Reports: abdominal pain, nausea and vomiting : Reports: flank pain; Denies: dysuria Musc: Denies: joint redness Skin/Breast: Denies: rash or jaundice Neuro: Denies: confusion, behavioral changes or Slurred speech present Psych: Denies: memory loss or difficulty concentrating Endo: Denies: flushing Fer/Lymph: Denies: easy bruising, easy bleeding or tender lymph nodes All/Imm: Denies: urticaria or acute wheezing Medications/Allergies Home Medications Medication Instructions Recorded Confirmed Last Taken Type ondansetron 4 mg PO Q8H PRN #12 tab 05/31/21 06/10/21 Unknown Rx tamsulosin 0.4 mg PO DAILY #20 cap 05/31/21 06/10/21 Unknown Rx lisinopril 20 mg tablet 20 mg PO DAILY 06/04/21 06/10/21 Unknown History oxycodone-acetaminophen 5 mg-325 1 tab PO Q6H PRN 5 Days #20 tab 06/04/21 06/10/21 Unknown Rx mg tablet Allergies Allergy/AdvReac Type Severity Reaction Status Date / Time No Known Allergies Allergy Unverified 06/10/21 08:13 PFSH Acute PFSH: Medical History Right ureteral stone Family History Other Cancer Diabetes Social History Alcohol intake: never Marital status: Current occupational status: employed Vitals/I&O/Wt Last Vital Signs Temp 98.6 F 06/14/21 19:15 Pulse 80 06/15/21 01:04 Resp 20 H 06/15/21 01:31 BP 130/92 06/15/21 01:04 Pulse Ox 97 06/15/21 02:09 Weight last 48 hrs Weight 340 lb Physical Exam Const: COMMON NORMALS: no acute distress, alert and well nourished GENERAL APPEARANCE: well kempt and well developed ORIENTATION/CONSCIOUSNESS: not confused HENMT: HEAD & SCALP: normocephalic and atraumatic Eye: COMMON NORMALS: conjunctivae normal and no scleral icterus Neck/C-Spine: COMMON NORMALS: full ROM Resp: COMMON NORMALS: normal respiratory effort EFFORT & INSPECTION: No labored and No Actively coughing Cardio: COMMON NORMALS: regular rate and regular rhythm GI: INSPECTION: Yes normal to inspection AUSCULTATION: Yes normoactive bowel sounds PALPATION: Yes Tenderness to palpation present (GI) Details: RLQ and RUQ and No Palpable mass present : BLADDER/KIDNEY EXAM: Yes CVA tenderness on the right Back/Pelvis: COMMON NORMALS: negative for no CVA tenderness Extremity: COMMON NORMALS: no clubbing, cyanosis or edema Neuro: COMMON NORMALS: no focal motor deficits SENSORIUM/ORIENTATION: Yes alert Psych: COMMON NORMALS: mental status grossly normal APPEARANCE: Yes grossly normal and Yes well kempt ATTITUDE: Yes calm and Yes engaged Skin: COMMON NORMALS: no rashes or lesions noted and no jaundice Data : 06/14/21 20:55 06/14/21 20:55 A&P Assessment and plan (1) Right ureteral stone: Based on review of history CT scans this appears to be the same stone. There were no additional stones on CT scan in the kidney on the right side. It just could not be identified on previous follow-up KUB. Because of the evidence of acute cystitis in the absence of septic symptoms I think intervention should be considered. Status: Acute (2) Acute cystitis: No evidence of sepsis. Status: Acute Qualifiers: Hematuria presence: with hematuria Qualified Code(s): N30.01 - Acute cystitis with hematuria (3) Right flank pain: Secondary to right distal ureteral obstructing stone Status: Acute Attestations Medical Necessity Statement*: Refractory pain from right obstructing ureteral stone with further complication of acute cystitis. Coding Level of Care Code Acute [facility] Tender for [facility] Fwd Exam Comprehensive Diagnoses Right ureteral stone N20.1 Acute cystitis N30.01 Hematuria presence: with hematuria Right flank pain R10.9
[2021-06-15] MEDS: sodium chloride 0.9% 1,000 ML 100 ML IV ×2 (04:48→15:32)
--- NOTE | 2021-06-15 06:00 | XRR_ITS ---
PROCEDURE INFORMATION: Exam: XR Abdomen Exam date and time: 06/15/2021 6:00 AM Age: 30 years old Clinical indication: Condition or disease; Kidney or ureter condition; Calculus (stone) in ureter; Additional info: F/u right ureteral stone TECHNIQUE: Imaging protocol: XR of the abdomen. Views: Frontal supine view of the abdomen. 1 View. COMPARISON: CT abdomen pelvis w con* [id number] 06/14/2021 10:33 PM FINDINGS: Gastrointestinal tract: Normal. No bowel dilation. Organs: There is a hyperdense nephrogram on the right side with dilatation of the caliceal system and right ureter. The finding seen corresponds to a outflow tract obstruction in the distal right ureter. There is no clearly visible of stone in the right urinary outflow track. the right ureter is only visible to the pelvic inlet. The left kidney does not show focal abnormality. It shows a normal appearing collecting system and proximal left ureter. Bones/joints: Unremarkable. XR/XR KUB [id number] IMPRESSION: 1. Obstruction of the right urinary outflow track at the level of the pelvic inlet. 2. Negative for visible radiodense urinary tract stones. 3. Negative left kidney Radiation Dose CTDIVOL = (mGy): DLP = (mGy-cm)
[2021-06-15 08:40] LABS: Basophils # 0.1 10^3/uL (0.0-0.1); Basophils % 0.5 %; Eosinophils # 0.2 10^3/uL (0.0-0.8); Eosinophils % 1.3 %; Hematocrit 42.6 % (42.0-52.0); Hemoglobin 13.8 g/dL (11.7-16.6); Lymphocytes # 2.7 10^3/uL (0.8-4.8); Lymphocytes % 20.4 %; Mean Corpuscular HGB Conc 32.4 g/dL (30.0-36.0); Mean Corpuscular Hemoglobin 30.8 pg (28.0-34.0); Mean Corpuscular Volume 95.1 fl (80-94); Mean Platelet Volume 11.3 fL (7.4-10.4); Monocytes # 1.5 10^3/uL (0.2-0.9); Monocytes % 11.2 %; Neutrophils # 8.81 10^3/uL (1.8-7.7); Neutrophils % 66.3 %; Nucleated Red Blood Cells % 0 %; Platelet Count 204 10^3/cmm (130-400); Red Blood Count 4.48 10^6/uL (4.1-5.3); Red Cell Distribution Width 13.2 % (12.1-15.1); White Blood Count 13.3 10^3/uL (4.0-10.0)
[2021-06-15 09:06] LABS: Anion Gap 14.1 (5-19); Blood Urea Nitrogen 14 mg/dL (6-20); Calcium 8.2 mg/dL (8.5-10.5); Carbon Dioxide 24 mmol/L (22-29); Chloride 105 mmol/L (98-107); Glomerular Filtration Rate 99.1 mL/min (90-130); Glucose 100 mg/dL (65-115); Osmolality Calculated 289 mOsm/kg (285-295); Potassium 4.1 mmol/L (3.5-5.1); Sodium 139 mmol/L (136-145)
--- NOTE | 2021-06-15 11:49 | P.ANESASSM_ITS ---
Pre-Anesthetic Assessment Pre-Anesthetic Assessment: Height/Weight: Height 1.91 m Weight 154.221 kg Temp Pulse Resp BP Pulse Ox 98.1 F 76 18 106/54 98 06/15/21 11:46 06/15/21 11:46 06/15/21 11:46 06/15/21 11:46 06/15/21 11:46 Preop Diagnosis: Kidney stones Proposed Procedure: Operation Date: 06/15/21 12:00 Proposed Procedures p Cystoscopy(Not Applicable) - Timbo Wilde MD s Ureteral Stent Placement(Right) - Timbo Wilde MD s Ureteroscopy(Right) - Timbo Wilde MD s Laser Lithotripsy(Right) - Timbo Wilde MD s Retrograde Pyelogram(Right) - Timbo Wilde MD Familial anesthetic complications: none Was Beta Teddy taken within 24 hours: N/A Was Clonidine taken within 24 hours: N/A Last intake: > 8hrs Social: Social History: No alcohol and No tobacco Exam: Pre-Anes Outpt Exam: alert, oriented x 3, clear to auscultation bilaterally and regular rate & rhythm Airway: MP: 4 Dentition: Full Additional comments: Large neck and tongue, turner CV/HEM: CV/HEM: HTN Metabolic: Metabolic: Morbid obesity Anesthetic Plan: ASA status: 3 Anesthesia: General Risk of > 500 ml blood loss (7ml/kg in children): No Meds/Allergies Current Medications: Current Medications Generic Name Dose Route Start Last Admin Trade Name Freq PRN Reason Stop Dose Admin Sodium Chloride 1,000 mls @ 100 m ls/hr 06/15/21 04:27 06/15/21 04:48 Sodium Chloride 0.9% IV 100 mls/hr .Q10H KAYLEE Administration PFSH Anesthesia PFSH: Medical History Right ureteral stone Family History Other Cancer Diabetes Social History Alcohol intake: never Marital status: Current occupational status: employed Data Anesthesia CBC & Chem 7: 06/15/21 08:13 06/15/21 08:13 Other Labs: Laboratory Results - last 48 hr 06/14/21 06/14/2106/14/21 19:46 20:55 20:55 WBC 18.9 H RBC 4.96 Hgb 15.3 Hct 45.3 MCV 91.3 MCH 30.8 MCHC 33.8 RDW 13.2 Plt Count 247 MPV 11.8 H Neut % (Auto) 75.4 Lymph % (Auto) 13.0 [place] % (Auto) 9.7 Eos % (Auto) 1.0 Baso % (Auto) 0.4 Neut # (Auto) 14.22 H Lymph # (Auto) 2.5 [place] # (Auto) 1.8 H Eos # (Auto) 0.2 Baso # (Auto) 0.1 Nucleated RBC % (auto) 0 Nucleated RBCs # 0.0 Sodium 139 Potassium 3.9 Chloride 102 Carbon Dioxide 23 Anion Gap 17.9 BUN 14 Creatinine 0.9 GFR Calculation 99.1 Glucose 127 H Calculated Osmolality 290 Calcium 8.6 Total Bilirubin 0.4 AST 34 ALT 48 H Alkaline Phosphatase 85 Total Protein 7.1 Albumin 4.1 Globulin 3.0 Lipase 20 Urine Color Brown Urine Appearance Cloudy Urine pH 5 Ur Specific [place] 1.025 Urine Protein 1+ H Urine Glucose (UA) Norm Urine Ketones 1+ H Urine Blood 3+ H Urine Nitrate Positive H Urine Bilirubin 1+ H Urine Urobilinogen 4 H Ur Leukocyte Esterase Trace H Urine RBC Too numerous to cnt H Urine WBC 10-15 H Ur Squamous Epith Cells 15-25 H Calcium Oxalate Crystal 0-4 H Amorphous Sediment Not Reportable Urine Bacteria 1+ H 06/15/21 06/15/21 08:13 08:13 WBC 13.3 H RBC 4.48 Hgb 13.8 Hct 42.6 MCV 95.1 H MCH 30.8 MCHC 32.4 RDW 13.2 Plt Count 204 MPV 11.3 H Neut % (Auto) 66.3 Lymph % (Auto) 20.4 [place] % (Auto) 11.2 Eos % (Auto) 1.3 Baso % (Auto) 0.5 Neut # (Auto) 8.81 H Lymph # (Auto) 2.7 [place] # (Auto) 1.5 H Eos # (Auto) 0.2 Baso # (Auto) 0.1 Nucleated RBC % (auto) 0 Nucleated RBCs # 0.0 Sodium 139 Potassium 4.1 Chloride 105 Carbon Dioxide 24 Anion Gap 14.1 BUN 14 Creatinine 0.9 GFR Calculation 99.1 Glucose 100 Calculated Osmolality 289 Calcium 8.2 L Total Bilirubin AST ALT Alkaline Phosphatase Total Protein Albumin Globulin Lipase Urine Color Urine Appearance Urine pH Ur Specific [place] Urine Protein Urine Glucose (UA) Urine Ketones Urine Blood Urine Nitrate Urine Bilirubin Urine Urobilinogen Ur Leukocyte Esterase Urine RBC Urine WBC Ur Squamous Epith Cells Calcium Oxalate Crystal Amorphous Sediment Urine Bacteria Cardiac Studies: No Data to Display
--- NOTE | 2021-06-15 11:55 | SC_ITS ---
WS: [id number] C-ARM RADIOGRAPHS ABDOMEN; 2 IMAGES HISTORY: surgery COMPARISON: None available. Intraoperative imaging during ureteral stent placement. There is a pigtail coiled in the upper abdome n. SC/C-arm [place] for Urology IMPRESSION: Intraoperative imaging during ureteral stent placement.
--- NOTE | 2021-06-15 11:59 | PM.OP ---
Operative Report Date of procedure: June 15, 2021 Pre-op Diagnosis: Refractory right ureteral calculus, acute cystitis Post-op Diagnosis: Refractory right ureteral calculus, acute cystitis Procedure Done: 1. Cystoscopy, RIGHT retrograde ureteropyelogram 2. RIGHT ureteroscopy laser lithotripsy stent (7 Bulgarian by 30 cm double-pigtail no string) Surgeon: Chani Anesthesia: General Estimated blood loss: Minimal Complications: None Condition: stable Disposition: PACU Brief History: Nixon is a very pleasant 30-year-old white male recently diagnosed with a right proximal ureteral stone CT scan during work-up for right renal colicky symptoms. The stone was located in the proximal ureter at that time and on follow-up the stone could not be adequately identified on KUB. There is some question of whether he passed the stone or not. It was presumed that he did with instructions to call office symptoms recur. The night before this procedure he was seen in the emergency department for recurrent right renal colicky symptoms was found to have acute cystitis and a repeat CT scan showed evidence of the stone, the same stone, and the right distal ureter. His white count was elevated and urine showed pyuria as well as bacteriuria with nitrite positive status. There was no evidence of sepsis. He was treated with IV antibiotics and after thorough discussion of his options we elected to proceed with intervention today with minimum stent but hopefully if all goes well hemodynamically definitive treatment of the stone. Procedure: After urgent evaluation examination and obtaining of informed consent he was taken to the operating suite on 06/15/2021 where general anesthesia was administered without difficulty after appropriate timeout was performed, SCDs confirmed to be functioning, preoperative antibiotics administered, beta-daron protocol confirmed. Prepped and draped in usual sterile fashion in dorsolithotomy position paying careful attention to avoiding pressure points. 21 Bulgarian cystoscope with 30 degree lens was introduced into urethra meatus but not easily advanced due to meatal stenosis. The urethra was then dilated with Ceiba sounds distally from 18-26. 2% lidocaine jelly was instilled into the urethra and then a 17 Bulgarian cystoscopic sheath with lens was passed into the bladder without difficulty. He had several areas of bypassable narrowings/strictures. The bladder was carefully inspected and there is no significant pathology identified. No stone. Alejandra 2% lidocaine jelly was instilled into the urethra then the 17 Bulgarian sheath was exchanged for 21 Bulgarian sheath which was also advanced into the bladder through the narrowed area but without significant difficulty. And advanced into the bladder to videoscopy. Bladder was systematically examined. An 8 Bulgarian cone-tip catheter was intubated into the right ureteral orifice for a gentle right retrograde ureterogram. The distal ureter appeared to be normal in course and caliber. No filling defect consistent with a stone seen on CT scan as well as KUB this morning was identified. The ureter proximal to that point was somewhat dilated. Care was paid to avoid over distention of the collecting system. A flexible tip guidewire was then advanced up the right ureter bypassing the area of the stone curling in the area of the renal pelvis. The distal ureter was dilated with a 15 Bulgarian 4 cm balloon. The wire was secured to the drapes as a safety wire and a 7.5 Bulgarian offset semirigid ureteroscope was advanced into the bladder up the right ureter next to the guidewire. The stone was encountered in its expected position in a very narrowed area that was demonstrated on the retrograde pyelogram. It was somewhat difficult to get access to the stone but ultimately with use of second guidewire the stone was able to be directly treated with the laser fiber. A 200 ?m thulium superpulse laser fiber was utilized to fragment the stone. All the fragments were very small and easily passable. The ureter where the stone was located appeared to be just intrinsically narrowed although no other pathology was identified. There was some impaction changes associated with the stone was located and it was decided to leave a stent in to help facilitate healing of this and also cause passive dilation in order to clear the remaining sand fragments. The ureteroscope was removed without difficulty. The laser fiber and working guidewire were also removed the same time. The cystoscope was then backloaded over the safety wire and a 7 Bulgarian by 30 cm double-pigtail stent without string was passed over the guidewire through the cystoscope into appropriate position as confirmed via fluoroscopy and cystoscopy. The bladder was drained. Some fragments were flushed free from the bladder and sent for pathologic evaluation.
[2021-06-15] MEDS: iohexol 300 mg/mL 50 mL Btl (OR ONLY) XX (12:48)
[2021-06-15] MEDS: lidocaine 2% Urojet 20 mL TOPICAL (12:48)
--- NOTE | 2021-06-15 13:45 | ANE.PACU2 ---
Inpatient post-anesthesia follow up: Airway intact: Yes Vital signs: Temperature 98.1 F Pulse Rate 76 Respiratory Rate 18 Blood Pressure 106/54 Pulse Oximetry 98 Oxygen Delivery Me thod Room Air Oxygen Flow Rate 8 Fraction of Inspir ed Oxygen Hydration adequate: Yes Nausea and vomiting: No Pain level: 2 Mental status: Baseline
[2021-06-15] MEDS: phenazopyridine 100 mg Tablet 200 MG PO ×2 (15:32→20:42)
--- NOTE | 2021-06-15 16:55 | PC.PHAR ---
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
[2021-06-15] MEDS: nicotine 21 mg Patch 1 PATCH TRANSDERMA (20:43)
[2021-06-16] MEDS: sodium chloride 0.9% 1,000 ML 100 ML IV (00:21)
[2021-06-16 04:06] VITALS: BP 124/81; PULSE 73; RESP 20; TEMP 36.8; O2SAT 96
--- NOTE | 2021-06-16 07:43 | P.DS_ITS ---
Discharge Providers Date of Admission: 06/15/21 02:23 Date of Discharge: June 16, 2021 Attending Provider at Admission: Timbo Wilde MD Attending Provider at Discharge: Timbo Wilde MD Primary Care Provider: ANGELLA Santizo Diagnoses at Discharge Discharge Diagnosis (1) Right ureteral stone: Status: Resolved (2) Acute cystitis: Status: Acute Qualifiers: Hematuria presence: with hematuria Qualified Code(s): N30.01 - Acute cystitis with hematuria (3) Right flank pain: Status: Resolved (4) Ureteral stricture: Status: Acute Reason for Visit Reason for Visit: Right ureteral calculus with acute cystitis Hospital Course Hospital Course He was admitted through the emergency room on 06/13/2021 for refractory right renal colic and evidence of UTI. He has been known to have a stone and followed in outpatient clinic and it was presumed that the stone had passed and the fact that he could not be seen on follow-up serial KUBs and his symptoms had resolved. On reviewing the CT scan in the emergency department it was the same stone but slightly more distal. It was felt that the stone had a reasonable chance of passing but because of the infection concern was for the potential for advancement of infection to septic conditions. He was admitted on IV antibiotics. On hospital day #1 it was decided to taken to the operating room to deal with the stone. He had been treated with IV antibiotics in preparation for that and was stable clinically. Intraoperative findings included a narrowed ureteral area (probably related to multiple stone passages in the past) with the stone located just above it. It was difficult to access the stone but ultimately this was accomplished with ureteroscopy and the stone was treated with laser lithotripsy. Because of the narrowed ureter and the procedural inflammatory changes it was decided to leave a stent in for prolonged period of time. A 7 Luxembourgish by 30 cm double-pigtail stent without string was placed. Plan was to leave it in for least 3 weeks. Postoperative course was unremarkable. He was observed overnight due to the concern for potential advancement of infection picture and thankfully that did not happen. He was discharged on postoperative day #1 in stable condition with plans for continued Levaquin for 10 days with 1 refill available if necessary. I reviewed postoperative symptoms expectations limitations and typical stent concerns. He was doing well from that perspective at time of discharge. Physical Exam Const: COMMON NORMALS: no acute distress, alert and well nourished GENERAL APPEARANCE: well kempt and well developed ORIENTATION/CONSCIOUSNESS: not confused Neck/C-Spine: COMMON NORMALS: full ROM Resp: COMMON NORMALS: normal respiratory effort EFFORT & INSPECTION: No labored and No Actively coughing : OTHER: Urine with red tint. Neuro: COMMON NORMALS: no focal motor deficits SENSORIUM/ORIENTATION: Yes alert Psych: COMMON NORMALS: mental status grossly normal APPEARANCE: Yes grossly normal and Yes well kempt ATTITUDE: Yes calm and Yes engaged Skin: COMMON NORMALS: no rashes or lesions noted GENERAL SKIN EXAM: no rashes or lesions noted Discharge Data Data Completed and Pending: Completed Studies During Hospitalization Category Date Time Status CT abdomen pelvis w con* [id number] Urge nt Cat Scan 06/14/21 22:21 Completed Pending at discharge Category Date Time Status XR KUB [id number] Rout ine Exams 06/15/21 06:00 Taken Labs from last 24 hours 06/15/21 06/15/21 08:13 08:13 WBC 13.3 H RBC 4.48 Hgb 13.8 Hct 42.6 MCV 95.1 H MCH 30.8 MCHC 32.4 RDW 13.2 Plt Count 204 MPV 11.3 H Neut % (Auto) 66.3 Lymph % (Auto) 20.4 Love % (Auto) 11.2 Eos % (Auto) 1.3 Baso % (Auto) 0.5 Neut # (Auto) 8.81 H Lymph # (Auto) 2.7 Love # (Auto) 1.5 H Eos # (Auto) 0.2 Baso # (Auto) 0.1 Nucleated RBC % (a uto) 0 Nucleated RBCs # 0.0 Sodium 139 Potassium 4.1 Chloride 105 Carbon Dioxide 24 Anion Gap 14.1 BUN 14 Creatinine 0.9 GFR Calculation 99.1 Glucose 100 Calculated Osmolal ity 289 Calcium 8.2 L Vitals: Last Vital Signs Temp 98.2 F 06/16/21 04:06 Pulse 73 06/16/21 04:06 Resp 20 H 06/16/21 04:06 BP 124/81 06/16/21 04:06 Pulse Ox 96 06/16/21 04:06 Discharge Plan Discharge Patient Disposition: Home Condition: Stable Prescriptions: New levofloxacin 500 mg tablet 500 mg PO DAILY 10 Days Qty: 10 RF: 1 Continued lisinopril 20 mg tablet 20 mg PO DAILY RF: 0 oxycodone-acetaminophen [Percocet] 5-325 mg tablet 1 tab PO Q6H PRN (Reason: Urolithiasis) 5 Days Qty: 20 RF: 0 tamsulosin 0.4 mg capsule 0.4 mg PO DAILY Qty: 20 RF: 0 ondansetron 4 mg tablet,disintegrating 4 mg PO Q8H PRN (Reason: nausea and vomiting) Qty: 12 RF: 0 Discharge Orders: Discharge Order (Routine); Ordered 06/16/21 Ordered By: Timbo Wilde Referrals: Timbo Wilde MD [Physician] - 07/14/21 (Cysto, stent removal ) Susan Ramos FNP [Primary Care Provider] - Discharge Diet: Usual diet Discharge Activity: Increase activity as tolerated Patient Instructions: Levofloxacin (By mouth), Cystoscopy (GEN), Ureteral Stent Placement (GEN), Opioid Safety Discharge Attestations Time Spent in Discharge Care*: less than 30 min Quality Metrics Clinical Quality Measures During this hospital stay, did patient experience: None Coding Level of Care Code Acute Chg DC note Diagnoses Right ureteral stone N20.1 Acute cystitis N30.01 Hematuria presence: with hematuria Right flank pain R10.9 Ureteral stricture N13.5
[2021-06-16 07:59] VITALS: BP 124/81; PULSE 73; RESP 20; TEMP 36.8; O2SAT 96
[2021-06-16] MEDS: tamsulosin 0.4 mg Capsule PO (08:03)
[2021-06-16] MEDS: phenazopyridine 100 mg Tablet 200 MG PO (08:03)
[2021-06-16] MEDS: lisinopril 20 mg Tablet PO (08:03)
== END 2021-06-16 08:10 | disposition home or self-care (01) ==
LOC: ER 06-15 01:48 → MEDSURG 06-15 06:18
PROVIDERS: Emergency Medicine; Admitting Provider Urology; Emergency Provider Emergency Medicine; PCP Nurse Practitioner Family; Visit Provider Urology
PROC: 0TJB8ZZ Inspection of Bladder, Via Natural or Artificial Opening Endoscopic (ICD-10-PCS; CPT 52000; principal; 2021-06-15 12:00)
PROC: (CPT 50605; 2021-06-15 12:00)
PROC: 0TJ98ZZ Inspection of Ureter, Via Natural or Artificial Opening Endoscopic (ICD-10-PCS; CPT 52351; 2021-06-15 12:00)
PROC: (CPT 52356; 2021-06-15 12:00)
PROC: (CPT 74420; 2021-06-15 12:00)
DX: N20.1 Calculus of ureter (principal); N30.01 Acute cystitis with hematuria; R10.9 Unspecified abdominal pain; I10 Essential (primary) hypertension; E66.01 Morbid (severe) obesity due to excess calories; Z68.42 Body mass index [BMI] 45.0-49.9, adult
CPT/HCPCS: 52356; 74018; 74177; 76000; 80048; 80053; 81001; 83690; 85025; 96365; 96367; 96375; 99285; C2625; G0378; J0330; J0696; J1100; J1170; J1885; J1956; J2250; J2270; J2405; J2704; J3010; J3370; J3490; J7030; J7050; Q9967

== ENCOUNTER 2021-06-19 01:28 | Emergency (ER) | payer BC, SELFPAY ==
[2021-06-19 01:37] VITALS: BP 163/117; PULSE 87; RESP 18; TEMP 36.6; O2SAT 97; BMI 43.7
--- NOTE | 2021-06-19 01:56 | CTR_ITS ---
PROCEDURE INFORMATION: Exam: CT Abdomen And Pelvis Without Contrast Exam date and time: 06/19/2021 1:56 AM Age: 30 years old Clinical indication: Fever and nausea and vomiting; Abdominal pain; Right; Prior surgery; Surgery date: 3-7 days post-operative; Surgery type: RT ureteral stent. ; Patient HX: C/O n/v with fever and persistent RT flank pain. Ureteral stent placed on 06/14/2021. ; Additional info: R flank pain TECHNIQUE: Imaging protocol: Computed tomography of the abdomen and pelvis without contrast. Radiation optimization: All CT scans at this facility use at least one of these dose optimization techniques: automated exposure control; mA and/or kV adjustment per patient size (includes targeted exams where dose is matched to clinical indication); or iterative reconstruction. COMPARISON: CT abdomen pelvis w con* [id number] 06/14/2021 10:33 PM RADIATION DOSE METRICS: Total DLP (mGy-cm): 2334.86 FINDINGS: Tubes, catheters and devices: There is a double pigtail right ureteral stent present. Liver: There is hypoattenuation of the hepatic parenchyma compatible with fatty infiltration. Gallbladder and bile ducts: Normal. No calcified stones. No ductal dilation. Pancreas: Normal. No ductal dilation. Spleen: Normal. No splenomegaly. Adrenal glands: Normal. No mass. Kidneys and ureters: There are some hazy opacity seen surrounding the right ureter possibly representing mild inflammatory changes. Mild hydronephrosis seen within the right kidney. The distal right ureteral calculus is not seen today. Stomach and bowel: Unremarkable. No obstruction. No mucosal thickening. Appendix: No evidence of appendicitis. Intraperitoneal space: Unremarkable. No free air. No significant fluid collection. Vasculature: Unremarkable. No abdominal aortic aneurysm. Lymph nodes: Unremarkable. No enlarged lymph nodes. Urinary bladder: Unremarkable as visualized. Reproductive: Unremarkable as visualized. Bones/joints: Unremarkable. No acute fracture. Soft tissues: Unremarkable. CT/CT kidney stone [id number] IMPRESSION: 1. Placement of a double pigtail right ureteral stent. The distal right ureteral calculus seen on 06/14/2021 is not seen today. There is probable mild residual inflammatory changes present surrounding the right ureter and mild residual hydronephrosis seen within the right kidney. 2. Fatty infiltration of the liver Radiation Dose CTDIVOL = (mGy): DLP = 2334.86 (mGy-cm)
[2021-06-19] MEDS: ondansetron 2 mg/ML SDV 2 mL 4 MG IVP (02:07)
[2021-06-19] MEDS: HYDROmorphone 1 mg/mL INJ 1 mL IVP (02:07)
[2021-06-19] MEDS: sodium chloride 0.9% 1,000 ML 999 ML IV (02:08)
[2021-06-19 02:14] LABS: Add Urine Microscopic? YES; Bilirubin Urine 1+ (Negative); Blood Urine 3+ (Negative); Glucose Urine UA Norm (Normal); Ketones Urine Negative (Negative); Leukocyte Esterase Urine Trace (Negative); Nitrate Urine Negative (Negative); Protein Urine 3+ (Negative); Specific Gravity, Urine 1.025 (1.005-1.030); Urine Color Yellow (Yellow); Urobilinogen Urine 1 mg/dL (Negative); pH Urine 5 (5-7)
[2021-06-19 02:16] LABS: Bacteria Urine TRACE /hpf; RBC Urine TOO NUMEROUS TO CNT /hpf (0-2); WBC Urine 15-25 /hpf (0-5)
[2021-06-19 02:17] LABS: Add Urine Culture? Yes
[2021-06-19 02:21] LABS: Basophils # 0.1 10^3/uL (0.0-0.1); Basophils % 0.6 %; Eosinophils # 0.7 10^3/uL (0.0-0.8); Eosinophils % 2.9 %; Hematocrit 49.5 % (42.0-52.0); Hemoglobin 15.8 g/dL (11.7-16.6); Lymphocytes # 6.9 10^3/uL (0.8-4.8); Lymphocytes % 30.9 %; Mean Corpuscular HGB Conc 31.9 g/dL (30.0-36.0); Mean Corpuscular Hemoglobin 30.2 pg (28.0-34.0); Mean Corpuscular Volume 94.6 fl (80-94); Mean Platelet Volume 11.7 fL (7.4-10.4); Monocytes # 2.3 10^3/uL (0.2-0.9); Monocytes % 10.3 %; Neutrophils % 54.6 %; Nucleated Red Blood Cells % 0 %; Platelet Count 319 10^3/cmm (130-400); Red Blood Count 5.23 10^6/uL (4.1-5.3); White Blood Count 22.2 10^3/uL (4.0-10.0)
[2021-06-19 02:40] LABS: Alanine Aminotransferase 41 U/L (0-41); Albumin Level 4.2 g/dL (3.5-5.2); Alkaline Phosphatase 77 IU/L (40-130); Aspartate Amino Transferase 21 U/L (0-40); Blood Urea Nitrogen 17 mg/dL (6-20); Calcium 8.9 mg/dL (8.5-10.5); Carbon Dioxide 22 mmol/L (22-29); Chloride 102 mmol/L (98-107); Globulin 2.2 g/dL (1.3-4.6); Glomerular Filtration Rate 99.1 mL/min (90-130); Glucose 108 mg/dL (65-115); Osmolality Calculated 290 mOsm/kg (285-295); Sodium 139 mmol/L (136-145); Total Bilirubin 0.3 mg/dL (0.15-1.2); Total Protein 6.4 g/dL (6.6-8.7)
[2021-06-19 02:41] LABS: Lactate (Lactic Acid level) 1.8 mmol/L (0.5-2.2)
--- NOTE | 2021-06-19 02:43 | ED_ITS ---
HPI - Back Pain/Injury General: Chief Complaint: Back Pain/Injury Stated Complaint: N/V/D hot flashes, had surgery Time Seen by Provider: 06/19/21 01:42 History of Present Illness: HPI Narrative: 30-year-old male patient presenting with right-sided flank pain radiating to his testicle and abdomen with vomiting and chills. He was admitted to the urology service on 06/14 for potential pyelonephritis with ureterolithiasis on the right. He underwent lithotripsy, and was discharged on 06/16. He notes that he did okay, until several hours ago, when he got acute onset right-sided back pain, abdominal pain, vomiting, sweating, and chills again. He has been on Levaquin. He took his pain medication without much improvement. MD elicited complaint: back pain Pertinent past history: kidney stones and other Onset (ago): hour(s) Timing: progressively worsening Severity: severe Quality: stabbing Location: right flank Radiation: abdomen and groin Exacerbating factors: none Relieving factors: none Context: history of kidney stones Associated symptoms: Reports abdominal pain, chills, hematuria, nausea and vomiting; Deny dysuria, fecal incontinence or fever(s) Treatments prior to arrival: prescription analgesics Review of Systems Const: Reports: chills; Denies: fever(s) Card: Denies: chest pain Resp: Denies: dyspnea GI: Reports: abdominal pain, nausea and vomiting; Denies: fecal incontinence : Reports: hematuria; Denies: dysuria [facility] ED PFSH: Medical History (Updated 06/19/21 @ 04:02 by Benigno Branham DO) Right ureteral stone Family History Other Cancer Diabetes Social History Alcohol intake: never Marital status: Current occupational status: employed Physical Exam Const: COMMON NORMALS: patient oriented x3 and alert GENERAL APPEARANCE: cooperative and ill appearing HENMT: COMMON NORMALS: normocephalic HEAD & SCALP: normocephalic Chest: COMMONS NORMALS: normal inspection of the chest Resp: COMMON NORMALS: normal respiratory effort, No use of accessory muscles and clear to auscultation bilaterally AUSCULTATION: clear to auscultation bilaterally Cardio: COMMON NORMALS: regular rate and regular rhythm RATE: regular rate RHYTHM: regular rhythm GI: COMMON NORMALS: Normal to inspection, nondistended, normoactive bowel sounds present : BLADDER/KIDNEY EXAM: Yes CVA tenderness Back/Pelvis: GENERAL BACK: Yes CVA tenderness Neuro: COMMON NORMALS: patient oriented x3 SENSORIUM/ORIENTATION: Yes alert Course Vital Signs: Vital signs: Vital Signs Temperature 97.8 F 06/19/21 01:37 Pulse Rate 87 06/19/21 01:37 Respiratory Rate 18 06/19/21 01:37 Blood Pressure 163/117 06/19/21 01:37 Pulse Oximetry 97 06/19/21 01:37 MDM - Back Pain/Injury MDM Narrative: Medical decision making narrative: Vomiting and flank pain the patient with recent ureteral stent placement on the right. White blood cell count is 22 but without significant left shift. BMP is normal. Urinalysis shows only trace leukocyte esterase with gross hematuria, and a comparatively likely not significant pyuria. CT shows the double-pigtail right ureteral stent in place. There is inflammatory change present surrounding the right ureter. Ureteral calculus is not seen, although there is mild residual hydronephrosis of the right kidney. CT is otherwise not remarkable. His pain is much improved. No more vomiting here. Clinically, he is likely passing residual stone from the lithotripsy. Without evidence of significant obstruction, worsening infection, he will be allowed home for outpatient urology follow-up. Lab Data: Labs: Lab Results 06/19/21 06/19/21 06/19/21 01:45 01:58 01:58 WBC 22.2 10^3/uL H 10 ^3/uL (4.0-10.0) RBC 5.23 10^6/uL 10^6 /uL (4.1-5.3) Hgb 15.8 g/dL g/dL (11.7-16.6) Hct 49.5 % % (42.0-52.0) MCV 94.6 fl H fl (80-94) MCH 30.2 pg pg (28.0-34.0) MCHC 31.9 g/dL g/dL (30.0-36.0) RDW 13.0 % % (12.1-15.1) Plt Count 319 10^3/cmm 10^3 /cmm (130-400) MPV 11.7 fL H fL (7.4-10.4) Neut % (Auto) 54.6 % % Lymph % (Auto) 30.9 % % [place] % (Auto) 10.3 % % Eos % (Auto) 2.9 % % Baso % (Auto) 0.6 % % Neut # (Auto) 12.10 10^3/uL H 1 0^3/uL (1.8-7.7) Lymph # (Auto) 6.9 10^3/uL H 10^ 3/uL (0.8-4.8) [place] # (Auto) 2.3 10^3/uL H 10^ 3/uL (0.2-0.9) Eos # (Auto) 0.7 10^3/uL 10^3/ uL (0.0-0.8) Baso # (Auto) 0.1 10^3/uL 10^3/ uL (0.0-0.1) Nucleated RBC % (a uto) 0 % % Nucleated RBCs # 0.0 /100WBC /100W BC Sodium 139 mmol/L mmol/L (136-145) Potassium 4.0 mmol/L mmol/L (3.5-5.1) Chloride 102 mmol/L mmol/L (98-107) Carbon Dioxide 22 mmol/L mmol/L (22-29) Anion Gap 19.0 (5-19) BUN 17 mg/dL mg/dL (6-20) Creatinine 0.9 mg/dL mg/dL (0.7-1.2) GFR Calculation 99.1 mL/min mL/mi n (90-130) Glucose 108 mg/dL mg/dL (65-115) Calculated Osmolal ity 290 mOsm/kg mOsm/ kg (285-295) Lactate Calcium 8.9 mg/dL mg/dL (8.5-10.5) Total Bilirubin 0.3 mg/dL mg/dL (0.15-1.2) AST 21 U/L U/L (0-40) ALT 41 U/L U/L (0-41) Alkaline Phosphata se 77 IU/L IU/L (40-130) Total Protein 6.4 g/dL L g/dL (6.6-8.7) Albumin 4.2 g/dL g/dL (3.5-5.2) Globulin 2.2 g/dL g/dL (1.3-4.6) Urine Color Yellow (Yellow) Urine Appearance Sl cloudy A (CLEAR) Urine pH 5 (5-7) Ur Specific Gravit y 1.025 (1.005-1.030) Urine Protein 3+ H (Negative) Urine Glucose (UA) Norm (Normal) Urine Ketones Negative (Negative) Urine Blood 3+ H (Negative) Urine Nitrate Negative (Negative) Urine Bilirubin 1+ H (Negative) Urine Urobilinogen 1 mg/dL H mg/dL (Negative) Ur Leukocyte Greer ase Trace H (Negative) Urine RBC Too numerous to c nt /hpf H /hpf (0-2) Urine WBC 15-25 /hpf H /hpf (0-5) Ur Squamous Epith Cells 5-10 /hpf H /hpf (0-5) Amorphous Sediment Not Reportable Urine Bacteria Trace /hpf /hpf (NONE) 06/19/21 01:58 WBC RBC Hgb Hct MCV MCH MCHC RDW Plt Count MPV Neut % (Auto) Lymph % (Auto) [place] % (Auto) Eos % (Auto) Baso % (Auto) Neut # (Auto) Lymph # (Auto) [place] # (Auto) Eos # (Auto) Baso # (Auto) Nucleated RBC % (a uto) Nucleated RBCs # Sodium Potassium Chloride Carbon Dioxide Anion Gap BUN Creatinine GFR Calculation Glucose Calculated Osmolal ity Lactate 1.8 mmol/L mmol/L (0.5-2.2) Calcium Total Bilirubin AST ALT Alkaline Phosphata se Total Protein Albumin Globulin Urine Color Urine Appearance Urine pH Ur Specific Gravit y Urine Protein Urine Glucose (UA) Urine Ketones Urine Blood Urine Nitrate Urine Bilirubin Urine Urobilinogen Ur Leukocyte Gre[place] ase Urine RBC Urine WBC Ur Squamous Epith Cells Amorphous Sediment Urine Bacteria Discharge Plan Discharge Patient Disposition: Home Clinical Impression: Ureteral stricture, Renal colic Condition: Stable Prescriptions: No Action lisinopril 20 mg tablet 20 mg PO DAILY RF: 0 oxycodone-acetaminophen [Percocet] 5-325 mg tablet 1 tab PO Q6H PRN (Reason: Urolithiasis) 5 Days Qty: 20 RF: 0 tamsulosin 0.4 mg capsule 0.4 mg PO DAILY Qty: 20 RF: 0 ondansetron 4 mg tablet,disintegrating 4 mg PO Q8H PRN (Reason: nausea and vomiting) Qty: 12 RF: 0 levofloxacin 500 mg tablet 500 mg PO DAILY 10 Days Qty: 10 RF: 1 Discharge Orders: Discharge ED (Routine); Ordered 06/19/21 Ordered By: Benigno Branham Referrals: Timbo Wilde MD [Physician] - 1-3 days Susan Ramos FNP [Primary Care Provider] - Discharge Diet: Advance as tolerated Discharge Activity: Increase activity as tolerated Patient Instructions: Renal Colic (ED), Opioid Safety Activity Restrictions/Additional Instructions: Return for fever greater than 100, vomiting liquids or medications, worsening pain despite treatment at home, inability to urinate, other concerning symptoms. Call the urology clinic on Monday for a follow-up appointment Coding Level of Care Code ED Restoration Officer for Chg Fwd Exam Detailed
[2021-06-19] MEDS: sodium chloride 0.9% 500 ML 999 ML IV (03:25)
--- NOTE | 2021-06-19 03:31 | PC.NURSE ---
PT. is confused and states that you can speak maori, but you don't see the color?
[2021-06-19] MEDS: HYDROmorphone 1 mg/mL INJ 1 mL 0.5 MG IVP (03:54)
== END 2021-06-19 04:43 | disposition home or self-care (01) ==
PROVIDERS: Emergency Provider Emergency Medicine; PCP Nurse Practitioner Family
DX: N13.5 Crossing vessel and stricture of ureter without hydronephrosis (principal); N23 Unspecified renal colic; Z87.442 Personal history of urinary calculi
CPT/HCPCS: 74176; 80053; 81001; 83605; 85025; 87086; 96361; 96374; 96375; 96376; 99284; J1170; J2405; J7030; J7040

== ENCOUNTER 2021-06-23 23:53 | Emergency (ER) | payer BC, SELFPAY ==
[2021-06-24 00:03] VITALS: BP 159/112; PULSE 102; RESP 22; TEMP 36.9; O2SAT 100; BMI 43.1
--- NOTE | 2021-06-24 00:11 | ED_ITS ---
HPI - Male Genitourinary General: Chief complaint: Urogenital-Male Stated complaint: kidney pain Time Seen by Provider: 06/24/21 00:11 History of Present Illness: HPI Narrative: Patient had a stent placed on the due to renal calculi. Patient was seen on the in the ER for exacerbation of pain was cleared at that time. Patient does have a retained ureter stent on the right side. Patient reports tonight he had a sudden onset of significant right flank pain and came in tonight for reevaluation. Patient is alert oriented. Patient does report some improvement in pain but continued to rate at 8 out of 10. Patient did have several episodes of emesis. Review of Systems General: Reports: 10 or more systems reviewed and unremarkable except in HPI and below : Reports: flank pain PFS ED PFSH: Medical History (Updated 06/24/21 @ 02:32 by ANGELLA Olvera) Right ureteral stone Family History Other Cancer Diabetes Social History Alcohol intake: never Marital status: Current occupational status: employed Physical Exam Const: COMMON NORMALS: no acute distress and patient oriented x3 GENERAL APPEARANCE: cooperative HENMT: COMMON NORMALS: normocephalic HEAD & SCALP: normal to inspection and normocephalic MOUTH: Normal oral and palatal mucosa present Eye: GENERAL EYE: appearance normal, both eyes and all related structures Neck/C-Spine: COMMON NORMALS: full ROM Chest: COMMONS NORMALS: normal inspection of the chest Resp: COMMON NORMALS: normal respiratory effort EFFORT & INSPECTION: Yes able to speak in complete sentences Cardio: COMMON NORMALS: regular rate and regular rhythm RATE: regular rate RHYTHM: regular rhythm GI: COMMON NORMALS: non-tender : COMMON NORMALS: Yes no CVA tenderness BLADDER/KIDNEY EXAM: Yes no CVA tenderness Back/Pelvis: COMMON NORMALS: no CVA tenderness and thoracic and lumbar spine normal to inspection Extremity: COMMON NORMALS: normal to inspection Neuro: COMMON NORMALS: patient oriented x3 and moves all extremities Psych: COMMON NORMALS: mental status grossly normal and cooperative Skin: COMMON NORMALS: no rashes or lesions noted GENERAL SKIN EXAM: no rashes or lesions noted Course ED course: 0130, patient has had significant improvement in pain. Review of the labs note that CBC White blood cell count has decreased from 23-15, renal function is normal, urine continues to have a significant number of red blood cells at 50-100 but is considerably clearer than what it was on the . Recommend patient drink plenty of fluids and follow-up with Dr. Wilde in the morning. Patient states that he was out of town earlier this week but he plans to catch up with him tomorrow. Vital Signs: Vital signs: Vital Signs Temperature 98.5 F 06/24/21 00:03 Pulse Rate 88 06/24/21 02:26 Respiratory Rate 18 06/24/21 02:26 Blood Pressure 142/97 06/24/21 02:26 Pulse Oximetry 97 06/24/21 02:26 MDM - Male MDM Narrative: Medical decision making narrative: 30-year-old male patient came in [facility] with renal colic. On exam patient's abdomen soft nontender. Skin was warm and dry. Patient had some right CVA tenderness. Vital signs were normal. Differential diagnosis includes but not limited to pyelonephritis, obstructed renal stent, renal calculi, UTI. CBC showed a white count of 15,000 which is actually decreased from 23,000 four days ago. Renal function is normal. Urinalysis shows a decrease in the amount of red blood cells. CT showed no significant change from prior exam. Exam was reviewed with patient with recommendations for following up with Dr. Wilde's office in the morning. Patient reported that he had already talked to his office today and was planning on seeing him tomorrow. Lab Data: Labs: Lab Results 06/24/21 06/24/21 06/24/21 00:32 00:40 00:40 WBC 15.1 10^3/uL H 10 ^3/uL (4.0-10.0) RBC 5.08 10^6/uL 10^6 /uL (4.1-5.3) Hgb 15.5 g/dL g/dL (11.7-16.6) Hct 46.9 % % (42.0-52.0) MCV 92.3 fl fl (80-94) MCH 30.5 pg pg (28.0-34.0) MCHC 33.0 g/dL g/dL (30.0-36.0) RDW 13.2 % % (12.1-15.1) Plt Count 272 10^3/cmm 10^3 /cmm (130-400) MPV 11.3 fL H fL (7.4-10.4) Neut % (Auto) 65.3 % % Lymph % (Auto) 19.9 % % [place] % (Auto) 10.9 % % Eos % (Auto) 2.7 % % Baso % (Auto) 0.7 % % Neut # (Auto) 9.85 10^3/uL H 10 ^3/uL (1.8-7.7) Lymph # (Auto) 3.0 10^3/uL 10^3/ uL (0.8-4.8) [place] # (Auto) 1.6 10^3/uL H 10^ 3/uL (0.2-0.9) Eos # (Auto) 0.4 10^3/uL 10^3/ uL (0.0-0.8) Baso # (Auto) 0.1 10^3/uL 10^3/ uL (0.0-0.1) Nucleated RBC % (a uto) 0 % % Nucleated RBCs # 0.0 /100WBC /100W BC Sodium 138 mmol/L mmol/L (136-145) Potassium 4.2 mmol/L mmol/L (3.5-5.1) Chloride 103 mmol/L mmol/L (98-107) Carbon Dioxide 23 mmol/L mmol/L (22-29) Anion Gap 16.2 (5-19) BUN 16 mg/dL mg/dL (6-20) Creatinine 0.9 mg/dL mg/dL (0.7-1.2) GFR Calculation 99.1 mL/min mL/mi n (90-130) Glucose 132 mg/dL H mg/dL (65-115) Calculated Osmolal ity 289 mOsm/kg mOsm/ kg (285-295) Calcium 9.0 mg/dL mg/dL (8.5-10.5) Total Bilirubin 0.3 mg/dL mg/dL (0.15-1.2) AST 26 U/L U/L (0-40) ALT 48 U/L H U/L (0-41) Alkaline Phosphata se 84 IU/L IU/L (40-130) Total Protein 6.9 g/dL g/dL (6.6-8.7) Albumin 4.2 g/dL g/dL (3.5-5.2) Globulin 2.7 g/dL g/dL (1.3-4.6) Urine Color Yellow (Yellow) Urine Appearance Hazy A (CLEAR) Urine pH 5 (5-7) Ur Specific Gravit y 1.025 (1.005-1.030) Urine Protein 2+ H (Negative) Urine Glucose (UA) Norm (Normal) Urine Ketones Negative (Negative) Urine Blood 3+ H (Negative) Urine Nitrate Negative (Negative) Urine Bilirubin Neg (Negative) Urine Urobilinogen 1 mg/dL H mg/dL (Negative) Ur Leukocyte Greer ase 1+ H (Negative) Urine RBC 80-100 /hpf H /hp f (0-2) Urine WBC 5-10 /hpf H /hpf (0-5) Ur Squamous Epith Cells Rare /hpf /hpf (0-5) Amorphous Sediment Not Reportable Urine Bacteria None /hpf /hpf (NONE) Discharge Plan Discharge Patient Disposition: Home Clinical Impression: Renal colic Condition: Stable Prescriptions: No Action lisinopril 20 mg tablet 20 mg PO DAILY RF: 0 oxycodone-acetaminophen [Percocet] 5-325 mg tablet 1 tab PO Q6H PRN (Reason: Urolithiasis) 5 Days Qty: 20 RF: 0 tamsulosin 0.4 mg capsule 0.4 mg PO DAILY Qty: 20 RF: 0 ondansetron 4 mg tablet,disintegrating 4 mg PO Q8H PRN (Reason: nausea and vomiting) Qty: 12 RF: 0 levofloxacin 500 mg tablet 500 mg PO DAILY 10 Days Qty: 10 RF: 1 Discharge Orders: Discharge ED (Routine); Ordered 06/24/21 Ordered By: Bentley Pillai Referrals: Susan Ramos SOCIAL WELFARE RESEARCH WORKER [Primary Care Provider] - Discharge Diet: Usual diet Discharge Activity: Increase activity as tolerated Patient Instructions: Renal Colic (ED), Opioid Safety Activity Restrictions/Additional Instructions: Continue with routine care. Drink plenty of water. Follow-up with Dr. Wilde's office in the morning. Return to the ER for worsening symptoms or new concerns. Coding Level of Care Code ED Professional Builder for Chg Fwd Exam Comprehensive
--- NOTE | 2021-06-24 00:12 | CTR_ITS ---
PROCEDURE INFORMATION: Exam: CT Abdomen And Pelvis Without Contrast Exam date and time: 06/24/2021 12:12 AM Age: 30 years old Clinical indication: Abdominal pain; Flank; Prior surgery; Surgery type: RT ureteral stent; Patient HX: Persistent pain since placement of right pigtail ureteral stent last week. ; Additional info: Renal stent increased pain TECHNIQUE: Imaging protocol: Computed tomography of the abdomen and pelvis without contrast. Radiation optimization: All CT scans at this facility use at least one of these dose optimization techniques: automated exposure control; mA and/or kV adjustment per patient size (includes targeted exams where dose is matched to clinical indication); or iterative reconstruction. COMPARISON: CT kidney stone [id number] 06/19/2021 2:10 AM RADIATION DOSE METRICS: Total DLP (mGy-cm): 2181.21 FINDINGS: No change since the prior exam. The double-J right ureteral stent is stable in position. Mild right hydronephrosis is again noted. No ureteral stone is seen. Mild right periureteral fat stranding remains. Mild hepatomegaly and hepatic steatosis are again noted. CT/CT kidney stone [id number] IMPRESSION: No change since the prior exam. Mild right hydronephrosis and right periureteral fat stranding (infection versus inflammation) are again noted. Correlate with urinalysis Radiation Dose CTDIVOL = (mGy): DLP = 2181.21 (mGy-cm)
[2021-06-24] MEDS: ondansetron 2 mg/ML SDV 2 mL 4 MG IVP (00:41)
[2021-06-24 00:44] VITALS: RESP 19; O2SAT 97
[2021-06-24] MEDS: HYDROmorphone 1 mg/mL INJ 1 mL IVP (00:44)
[2021-06-24 00:45] VITALS: BP 152/122; PULSE 95; RESP 19; O2SAT 98
[2021-06-24 01:00] LABS: Basophils # 0.1 10^3/uL (0.0-0.1); Basophils % 0.7 %; Eosinophils # 0.4 10^3/uL (0.0-0.8); Eosinophils % 2.7 %; Hematocrit 46.9 % (42.0-52.0); Hemoglobin 15.5 g/dL (11.7-16.6); Lymphocytes % 19.9 %; Mean Corpuscular Hemoglobin 30.5 pg (28.0-34.0); Mean Corpuscular Volume 92.3 fl (80-94); Mean Platelet Volume 11.3 fL (7.4-10.4); Monocytes # 1.6 10^3/uL (0.2-0.9); Monocytes % 10.9 %; Neutrophils # 9.85 10^3/uL (1.8-7.7); Neutrophils % 65.3 %; Nucleated Red Blood Cells % 0 %; Platelet Count 272 10^3/cmm (130-400); Red Blood Count 5.08 10^6/uL (4.1-5.3); Red Cell Distribution Width 13.2 % (12.1-15.1); White Blood Count 15.1 10^3/uL (4.0-10.0)
[2021-06-24 01:15] LABS: Add Urine Microscopic? YES; Bilirubin Urine Neg (Negative); Blood Urine 3+ (Negative); Glucose Urine UA Norm (Normal); Ketones Urine Negative (Negative); Leukocyte Esterase Urine 1+ (Negative); Nitrate Urine Negative (Negative); Protein Urine 2+ (Negative); RBC Urine 80-100 /hpf (0-2); Specific Gravity, Urine 1.025 (1.005-1.030); Urine Appearance Hazy (CLEAR); Urine Color Yellow (Yellow); Urobilinogen Urine 1 mg/dL (Negative); pH Urine 5 (5-7)
[2021-06-24 01:16] LABS: Add Urine Culture? Yes; Squamous Epithelial Cell Urine RARE /hpf (0-5)
[2021-06-24 01:19] LABS: Alanine Aminotransferase 48 U/L (0-41); Albumin Level 4.2 g/dL (3.5-5.2); Alkaline Phosphatase 84 IU/L (40-130); Anion Gap 16.2 (5-19); Aspartate Amino Transferase 26 U/L (0-40); Blood Urea Nitrogen 16 mg/dL (6-20); Carbon Dioxide 23 mmol/L (22-29); Chloride 103 mmol/L (98-107); Globulin 2.7 g/dL (1.3-4.6); Glomerular Filtration Rate 99.1 mL/min (90-130); Glucose 132 mg/dL (65-115); Osmolality Calculated 289 mOsm/kg (285-295); Potassium 4.2 mmol/L (3.5-5.1); Sodium 138 mmol/L (136-145); Total Bilirubin 0.3 mg/dL (0.15-1.2); Total Protein 6.9 g/dL (6.6-8.7)
[2021-06-24 01:49] VITALS: BP 143/78; PULSE 86; RESP 18; O2SAT 97
[2021-06-24 02:26] VITALS: BP 142/97; PULSE 88; RESP 18; O2SAT 97
== END 2021-06-24 02:58 | disposition home or self-care (01) ==
PROVIDERS: Emergency Provider Nurse Practitioner Family; PCP Nurse Practitioner Family
DX: N23 Unspecified renal colic (principal); Z87.442 Personal history of urinary calculi
CPT/HCPCS: 74176; 80053; 81001; 85025; 87086; 96374; 96375; 99283; J1170; J2405

== ENCOUNTER 2021-06-26 03:15 | Emergency (ER) | payer BC, SELFPAY ==
[2021-06-26 03:34] VITALS: BP 150/83; PULSE 90; RESP 18; TEMP 36.4; O2SAT 98; BMI 43.1
[2021-06-26] MEDS: ondansetron 2 mg/ML SDV 2 mL 4 MG IVP (04:49)
[2021-06-26] MEDS: ketorolac 30 mg/mL INJ 15 MG IVP (04:49)
[2021-06-26 04:50] VITALS: RESP 18
[2021-06-26] MEDS: HYDROmorphone 1 mg/mL INJ 1 mL IVP ×2 (04:50→05:38)
[2021-06-26 04:51] VITALS: BP 118/77; PULSE 84; RESP 18; TEMP 37.4; O2SAT 97
--- NOTE | 2021-06-26 05:20 | ED_ITS ---
HPI - Back Pain/Injury General: Chief Complaint: Back Pain/Injury Stated Complaint: Kidney Stones Stint Infected Time Seen by Provider: 06/26/21 03:52 History of Present Illness: HPI Narrative: 30-year-old male who had a stent placed at the end of May to his right ureter. He continues to have pain on and off. He was seen last weekend with pain, that became under control and the patient was allowed to go home. He was seen once more this past week with pain and pain was brought under control in the ER. CT scans both times showed no change in stent placement or problem with hydronephrosis, etc. He has no fever. No diarrhea. This time he has not vomited. He states when the pain hits, his pain medication does not seem to work well. MD elicited complaint: back pain Pertinent past history: kidney stones Onset (ago): day(s) Severity: severe Similar Symptoms Previously: Yes Quality: sharp and stabbing Location: right flank and right lower back Radiation: none Relieving factors: none Associated symptoms: Reports nausea and urinary frequency; Deny abdominal pain, chills, difficulty walking, dysuria, fever(s), tin gling/numbness/burning, urinary urgency or vomiting Treatments prior to arrival: prescription analgesics Review of Systems Const: Denies: fever(s) or chills GI: Reports: nausea; Denies: abdominal pain or vomiting : Denies: dysuria or urinary urgency Neuro: Denies: difficulty walking [facility] ED PFSH: Medical History (Updated 06/26/21 @ 06:09 by Benigno Branham DO) Right ureteral stone Family History Other Cancer Diabetes Social History Alcohol intake: never Marital status: Current occupational status: employed Physical Exam Const: COMMON NORMALS: patient oriented x3 and alert GENERAL APPEARANCE: cooperative; not comfortable Eye: COMMON NORMALS: Equal, round and reactive pupils present and EOMs intact bilaterally PUPIL: Yes Equal, round and reactive pupils present Chest: COMMONS NORMALS: normal inspection of the chest Resp: COMMON NORMALS: normal respiratory effort, No use of accessory muscles and clear to auscultation bilaterally AUSCULTATION: clear to auscultation bilaterally Cardio: COMMON NORMALS: regular rate and regular rhythm RATE: regular rate RHYTHM: regular rhythm GI: COMMON NORMALS: Normal to inspection, nondistended, normoactive bowel sounds present, Soft to palpation and non-tender PALPATION: Yes Soft to palpation : BLADDER/KIDNEY EXAM: Yes CVA tenderness on the right Back/Pelvis: GENERAL BACK: Yes CVA tenderness Neuro: COMMON NORMALS: patient oriented x3 SENSORIUM/ORIENTATION: Yes alert Course Vital Signs: Vital signs: Vital Signs Temperature 99.4 F 06/26/21 04:51 Pulse Rate 84 06/26/21 04:51 Respiratory Rate 16 06/26/21 05:38 Blood Pressure 118/77 06/26/21 04:51 Pulse Oximetry 97 06/26/21 04:51 MDM - Back Pain/Injury MDM Narrative: Medical decision making narrative: Fourth ER visit in the last 2 weeks for renal colic. His white blood cell count is down to 14. His other laboratory looks normal. His urinalysis shows only trace leukocyte esterase. He has been CT twice this week without any change. I do not see a big point in CT him again at this point. He is afebrile here. He has been on levofloxacin. He will be given a trial of different pain medication, and asked to follow-up with Dr. Wilde. He will call the clinic on Monday. Lab Data: Labs: Lab Results 06/26/21 06/26/21 06/26/21 04:45 04:45 04:50 WBC 14.0 10^3/uL H 10 ^3/uL (4.0-10.0) RBC 4.86 10^6/uL 10^6 /uL (4.1-5.3) Hgb 14.7 g/dL g/dL (11.7-16.6) Hct 45.7 % % (42.0-52.0) MCV 94.0 fl fl (80-94) MCH 30.2 pg pg (28.0-34.0) MCHC 32.2 g/dL g/dL (30.0-36.0) RDW 13.1 % % (12.1-15.1) Plt Count 233 10^3/cmm 10^3 /cmm (130-400) MPV 11.8 fL H fL (7.4-10.4) Neut % (Auto) 62.8 % % Lymph % (Auto) 24.4 % % [place] % (Auto) 8.8 % % Eos % (Auto) 3.0 % % Baso % (Auto) 0.6 % % Neut # (Auto) 8.77 10^3/uL H 10 ^3/uL (1.8-7.7) Lymph # (Auto) 3.4 10^3/uL 10^3/ uL (0.8-4.8) [place] # (Auto) 1.2 10^3/uL H 10^ 3/uL (0.2-0.9) Eos # (Auto) 0.4 10^3/uL 10^3/ uL (0.0-0.8) Baso # (Auto) 0.1 10^3/uL 10^3/ uL (0.0-0.1) Nucleated RBC % (a uto) 0 % % Nucleated RBCs # 0.0 /100WBC /100W BC Sodium 136 mmol/L mmol/L (136-145) Potassium 4.3 mmol/L mmol/L (3.5-5.1) Chloride 104 mmol/L mmol/L (98-107) Carbon Dioxide 20 mmol/L L mmol/ L (22-29) Anion Gap 16.3 (5-19) BUN 18 mg/dL mg/dL (6-20) Creatinine 0.8 mg/dL mg/dL (0.7-1.2) GFR Calculation 113.5 mL/min mL/m in (90-130) Glucose 104 mg/dL mg/dL (65-115) Calculated Osmolal ity 284 mOsm/kg L mOs m/kg (285-295) Calcium 8.5 mg/dL mg/dL (8.5-10.5) Total Bilirubin 0.2 mg/dL mg/dL (0.15-1.2) AST 24 U/L U/L (0-40) ALT 39 U/L U/L (0-41) Alkaline Phosphata se 83 IU/L IU/L (40-130) C-Reactive Protein 7.1 mg/L H mg/L (0.0-4.9) Total Protein 6.3 g/dL L g/dL (6.6-8.7) Albumin 3.9 g/dL g/dL (3.5-5.2) Globulin 2.4 g/dL g/dL (1.3-4.6) Urine Color Yellow (Yellow) Urine Appearance Clear (CLEAR) Urine pH 5 (5-7) Ur Specific Gravit y 1.005 (1.005-1.030) Urine Protein Neg (Negative) Urine Glucose (UA) Norm (Normal) Urine Ketones Negative (Negative) Urine Blood 3+ H (Negative) Urine Nitrate Negative (Negative) Urine Bilirubin Neg (Negative) Urine Urobilinogen Norm mg/dL mg/dL (Negative) Ur Leukocyte Greer ase Trace H (Negative) Urine RBC 5-10 /hpf H /hpf (0-2) Urine WBC 0-4 /hpf H /hpf (0-5) Ur Squamous Epith Cells 0-4 /hpf H /hpf (0-5) Amorphous Sediment Not Reportable Urine Bacteria Trace /hpf /hpf (NONE) Discharge Plan Discharge Patient Disposition: Home Clinical Impression: Renal colic Condition: Stable Prescriptions: New Dilaudid 4 mg tablet 4 mg PO Q4H PRN (Reason: pain) Qty: 10 RF: 0 No Action lisinopril 20 mg tablet 20 mg PO DAILY RF: 0 oxycodone-acetaminophen [Percocet] 5-325 mg tablet 1 tab PO Q6H PRN (Reason: Urolithiasis) 5 Days Qty: 20 RF: 0 tamsulosin 0.4 mg capsule 0.4 mg PO DAILY Qty: 20 RF: 0 ondansetron 4 mg tablet,disintegrating 4 mg PO Q8H PRN (Reason: nausea and vomiting) Qty: 12 RF: 0 levofloxacin 500 mg tablet 500 mg PO DAILY 10 Days Qty: 10 RF: 1 Discharge Orders: Discharge ED (Routine); Ordered 06/26/21 Ordered By: Benigno Branham Referrals: Timbo Wilde MD [Physician] - 1-3 days Susan Ramos FNP [Primary Care Provider] - Discharge Diet: Advance as tolerated Discharge Activity: Increase activity as tolerated Patient Instructions: Renal Colic (ED), Opioid Safety Activity Restrictions/Additional Instructions: Monitor your temperature twice daily. Return for fever greater than 100. You have been prescribed a new pain medication, do not take with the previously prescribed pain medication. Return for vomiting liquids. Return for worsening pain despite treatment. Call your urologist on Monday, and follow-up this coming week. Coding Level of Care Code ED Beveling Machine Operator for Chg Fwd Exam Detailed
[2021-06-26 05:21] LABS: Basophils # 0.1 10^3/uL (0.0-0.1); Basophils % 0.6 %; Eosinophils # 0.4 10^3/uL (0.0-0.8); Hematocrit 45.7 % (42.0-52.0); Hemoglobin 14.7 g/dL (11.7-16.6); Lymphocytes # 3.4 10^3/uL (0.8-4.8); Lymphocytes % 24.4 %; Mean Corpuscular HGB Conc 32.2 g/dL (30.0-36.0); Mean Corpuscular Hemoglobin 30.2 pg (28.0-34.0); Mean Platelet Volume 11.8 fL (7.4-10.4); Monocytes # 1.2 10^3/uL (0.2-0.9); Monocytes % 8.8 %; Neutrophils # 8.77 10^3/uL (1.8-7.7); Neutrophils % 62.8 %; Nucleated Red Blood Cells % 0 %; Platelet Count 233 10^3/cmm (130-400); Red Blood Count 4.86 10^6/uL (4.1-5.3); Red Cell Distribution Width 13.1 % (12.1-15.1)
[2021-06-26 05:38] VITALS: RESP 16
[2021-06-26 05:52] LABS: Alanine Aminotransferase 39 U/L (0-41); Albumin Level 3.9 g/dL (3.5-5.2); Alkaline Phosphatase 83 IU/L (40-130); Blood Urea Nitrogen 18 mg/dL (6-20); C Reactive Protein 7.1 mg/L (0.0-4.9); Calcium 8.5 mg/dL (8.5-10.5); Carbon Dioxide 20 mmol/L (22-29); Chloride 104 mmol/L (98-107); Globulin 2.4 g/dL (1.3-4.6); Glomerular Filtration Rate 113.5 mL/min (90-130); Glucose 104 mg/dL (65-115); Osmolality Calculated 284 mOsm/kg (285-295); Sodium 136 mmol/L (136-145); Total Bilirubin 0.2 mg/dL (0.15-1.2); Total Protein 6.3 g/dL (6.6-8.7)
[2021-06-26 05:56] LABS: Add Urine Microscopic? YES; Bilirubin Urine Neg (Negative); Blood Urine 3+ (Negative); Glucose Urine UA Norm (Normal); Ketones Urine Negative (Negative); Leukocyte Esterase Urine Trace (Negative); Nitrate Urine Negative (Negative); Protein Urine Neg (Negative); Specific Gravity, Urine 1.005 (1.005-1.030); Urine Appearance Clear (CLEAR); Urine Color Yellow (Yellow); Urobilinogen Urine Norm (Negative); pH Urine 5 (5-7)
[2021-06-26 05:57] LABS: Add Urine Culture? No; Bacteria Urine TRACE /hpf; Squamous Epithelial Cell Urine 0-4 /hpf (0-5); WBC Urine 0-4 /hpf (0-5)
[2021-06-26 06:01] LABS: Anion Gap 16.3 (5-19); Aspartate Amino Transferase 24 U/L (0-40); Potassium 4.3 mmol/L (3.5-5.1)
[2021-06-26 06:39] VITALS: BP 122/78; PULSE 82; TEMP 37.2; O2SAT 99
== END 2021-06-26 06:40 | disposition home or self-care (01) ==
PROVIDERS: Emergency Provider Emergency Medicine; PCP Nurse Practitioner Family
DX: N23 Unspecified renal colic (principal); Z87.442 Personal history of urinary calculi
CPT/HCPCS: 80053; 81001; 85025; 86140; 96374; 96375; 96376; 99284; J1170; J1885; J2405

== ENCOUNTER 2021-06-30 13:47 | Outpatient (CLI) | payer BC, SELFPAY ==
--- NOTE | 2021-06-30 13:50 | XRR_ITS ---
PROCEDURE INFORMATION: Exam: XR Abdomen Exam date and time: 06/30/2021 1:50 PM Age: 30 years old Clinical indication: Condition or disease; Kidney or ureter condition; Stricture/kinking of ureter; Prior surgery; Surgery type: Kidney stents; Additional info: Ureteral stricture TECHNIQUE: Imaging protocol: XR of the abdomen. Views: Frontal supine view of the abdomen. 1 View. COMPARISON: CT kidney stone [id number] 06/24/2021 12:52 AM FINDINGS: Tubes, catheters and devices: There is a double-J ureteral stent in place on the right side in good position. Gastrointestinal tract: Normal. No bowel dilation. Bones/joints: Unremarkable. XR/XR KUB [id number] IMPRESSION: 1. No acute findings. 2. Double-J ureteral stent right side in good position
== END 2021-06-30 13:48 | disposition home or self-care (01) ==
LOC: RAD 13:48
PROVIDERS: PCP Nurse Practitioner Family; Visit Provider Urology
DX: N13.5 Crossing vessel and stricture of ureter without hydronephrosis (principal); Z96.0 Presence of urogenital implants
CPT/HCPCS: 74018; 81003; 87086

== ENCOUNTER → 2021-07-08 08:46 | Outpatient (BNVA) | payer BC, SELFPAY | PROVIDERS: PCP Nurse Practitioner Family; Visit Provider Nurse Practitioner Family | DX: N23 Unspecified renal colic (principal) | CPT/HCPCS: 87635 ==

== ENCOUNTER 2021-07-12 11:23 | Day surgery (SDC) | payer BC, SELFPAY ==
[2021-07-09 15:35] VITALS: BMI 45.6
[2021-07-12] VITALS (9 sets, daily range): BP systolic 94–137; BP diastolic 57–67; PULSE 95–105; RESP 13–18; TEMP 36.2–36.4; O2SAT 90–96
--- NOTE | 2021-07-12 | SCC_ITS ---
Procedure Done: 1. Cystoscopy, removal of right ureteral stent 2. Right retrograde ureteropyelogram 3. Right ureteroscopy with inspection of previous impaction site 28.6 seconds of fluoroscopic guidance, for a cumulative dose of 19.11 mGy, was provided to Dr. Wilde by the radiology department. C-arm images of the abdomen were saved for the patient's permanent record. [facility]
--- NOTE | 2021-07-12 12:27 | W.PM.OPSUD ---
Surgery/Procedure H&P Update DATE OF PROCEDURE: July 12, 2021 DATE H&P PERFORMED: 06/30/21 H&P UPDATE INFORMATION: I have reviewed H&P completed within last 30 days, I have examined patient prior to procedure, No changes to prior documentation and H&P is in [facility] [place] EMR on date indicated PREOP DIAGNOSIS: Right ureteral stricture PLANNED PROCEDURE: Operation Date: 07/12/21 13:05 Proposed Procedures p Cystoscopy 48985 N13.5(Right) - Timbo Wilde MD s Ureteral Stent Exchange(Right) - Timbo Wilde MD s Ureteroscopy(Right) - Timbo Wilde MD
[2021-07-12] MEDS: sodium chloride 0.9% 1,000 ML 30 ML IV (12:33)
--- NOTE | 2021-07-12 13:06 | ANES.PREANE2 ---
Pre-Anesthetic Assessment Pre-Anesthetic Assessment: Height/Weight: Height 1.91 m Weight 165.561 kg Preop Diagnosis: Right ureteral stricture Proposed Procedure: Operation Date: 07/12/21 13:05 Proposed Procedures p Cystoscopy 54772 N13.5(Right) - Timbo Wilde MD s Ureteral Stent Exchange(Right) - MD carlotta Grant Ureteroscopy(Right) - Timbo Wilde MD Familial anesthetic complications: None Was Beta Teddy taken within 24 hours: N/A Was Clonidine taken within 24 hours: N/A Last intake: Intake Last Liquid Date 07/11/21 Last Liquid Time 23:55 Last Solid Date 07/11/21 Last Solid Time 21:00 Social: Social History: Tobacco and No alcohol Exam: Pre-Anes Outpt Exam: alert, oriented x 3, clear to auscultation bilaterally and regular rate & rhythm Airway: Cervical ROM: WNL MP: 4 Dentition: Full Additional comments: large neck and tongue, turner CV/HEM: CV/HEM: HTN Metabolic: Metabolic: Morbid obesity Anesthetic Plan: ASA status: 2 Anesthesia: General Risk of > 500 ml blood loss (7ml/kg in children): No Meds/Allergies Current Medications: Current Medications Generic Name Dose Route Start Last Admin Trade Name Freq PRN Reason Stop Dose Admin Sodium Chloride 1,000 mls @ 30 ml s/hr 07/12/21 11:30 07/12/21 12:33 Sodium Chloride 0.9% IV 07/13/21 11:29 30 mls/hr .Q24H KAYLEE Administration PFSH Anesthesia PFSH: Medical History Right ureteral stone Family History Other Cancer Diabetes Social History Alcohol intake: never Marital status: Current occupational status: employed Data Anesthesia Cardiac Studies: No Data to Display
[2021-07-12] MEDS: fentaNYL 50 mcg/mL INJ 2mL 25 MCG IVP (14:23)
[2021-07-12] MEDS: levofloxacin-dextrose 5 % 500 MG/100 ML PREMIX 100 MG IV (14:28)
--- NOTE | 2021-07-12 14:28 | P.OP_ITS ---
Operative Report Date of procedure: July 12, 2021 Pre-op Diagnosis: Right ureteral stricture, status post ureteral stenting for passive dilatio Post-op diagnosis: same Procedure Done: 1. Cystoscopy, removal of right ureteral stent 2. Right retrograde ureteropyelogram 3. Right ureteroscopy with inspection of previous impaction site Pathology: none sent Surgeon: Chani Anesthesia: General Estimated blood loss: Minimal Urine output: Not measured Complications: None Condition: stable Disposition: PACU Brief History: Nixon is a very pleasant 31-year-old white male recently treated with endoscopy for a severely symptomatic small right distal ureteral stone found to be impacted at the site of what appeared to be some intrinsic narrowing. Ureteroscopy with laser lithotripsy was utilized effectively to fragment the stone but because of the impaction site it was decided to leave a stent ind welling. He was brought back today for reevaluation of the site to confirm adequate healing for stent removal or replacement of stent if not. Procedure: After routine preoperative evaluation examination and obtaining of informed consent he was taken to the operating suite on 07/12/2021 where general anesthesia was administered without difficulty after appropriate timeout was performed, SCDs confirmed to be functioning, preoperative antibiotics administered, beta-daron protocol confirmed. Prepped and draped in usual sterile fashion in dorsolithotomy position paying careful attention to avoiding pressure points. 21 Marshallese cystoscope with 30 degree lens was introduced into the urethral meatus and advanced into the bladder under videoscopy. Bladder was systematically examined. Stent was in the expected position. A flexible tip guidewire was then advanced up the right ureter next to the stent easily bypassing the area of concern and curling in the area of the renal pelvis. Flexible tip graspers were then utilized to remove the stent without difficulty showing good uncurling of the proximal end. The wire was secured to the drapes as a safety wire. A 7.5 Marshallese offset semirigid ureteroscope was then advanced up the right ureter next to the wire up to the point where the stone had been impacted. The area was carefully inspected. It was well-healed. There was no difficulty passing the scope. No additional stone fragments were seen. It was decided to not leave a stent. The guidewire was removed and then a retrograde ureteropyelogram was performed. An 8 Marshallese cone-tip catheter was then intubated into the right ureteral orifice for a right retrograde ureteropyelogram: Contrast easily flowed proximally past the area of concern. There still appeared to be some baseline intrinsic narrowing but again the scope was passed through that area without difficulty. The more proximal ureter drained well through this area. Normal course and caliber proximal to that pelvic vessel crossing area. The bladder was drained and the procedure was completed. He tolerated the procedure well without complications and was awakened in the operating room and returned to the recovery room in stable condition. Plans: 1. Anticipate discharge from outpatient surgery today 2. Follow-up in 6 months with [facility].
[2021-07-12] MEDS: iohexol 300 mg/mL 50 mL Btl (OR ONLY) XX (14:56)
[2021-07-12] MEDS: lidocaine 2% Urojet 20 mL TOPICAL (15:03)
--- NOTE | 2021-07-12 15:53 | SUR.PHASEI ---
15:45 REPORT GIVEN TO POST OP NURSE. .PATIENT VOIDED 25 ml DARK URINE. PLACED ON O2 AT 4L/M NASAL CANULAR. TRANSFERED TO OUT PATIENT ROOM 4.
== END 2021-07-12 16:30 | disposition home or self-care (01) ==
PROVIDERS: PCP Nurse Practitioner Family; Visit Provider Urology
PROC: 0TJB8ZZ Inspection of Bladder, Via Natural or Artificial Opening Endoscopic (ICD-10-PCS; CPT 52000; principal; 2021-07-12 13:05)
PROC: 0TJ98ZZ Inspection of Ureter, Via Natural or Artificial Opening Endoscopic (ICD-10-PCS; CPT 52351; 2021-07-12 13:05)
PROC: (CPT 52310; 2021-07-12 13:05)
PROC: (CPT 74420; 2021-07-12 13:05)
DX: N13.5 Crossing vessel and stricture of ureter without hydronephrosis (principal); I10 Essential (primary) hypertension; E66.01 Morbid (severe) obesity due to excess calories; Z68.42 Body mass index [BMI] 45.0-49.9, adult
CPT/HCPCS: 52351; 76000; J0330; J1100; J1956; J2405; J2704; J3010; J7030

== ENCOUNTER 2021-07-30 21:18 | Emergency (ER) | payer BC, SELFPAY ==
[2021-07-30 21:24] VITALS: BP 113/82; PULSE 101; RESP 16; TEMP 36.9; O2SAT 97; BMI 43.1
--- NOTE | 2021-07-30 21:38 | USR_ITS ---
PROCEDURE INFORMATION: Exam: US Duplex Left Lower Extremity Veins, Limited Exam date and time: 07/30/2021 9:38 PM Age: 31 years old Clinical indication: Pain; Leg, lower; Left; Additional info: Calf pain, recent long car ride TECHNIQUE: Imaging protocol: Real-time Duplex ultrasound of the Left Lower Extremity with 2-D muñiz scale, color Doppler flow and spectral waveform analysis with image documentation. Limited exam focused on the left lower extremity veins. Total images: 1421 COMPARISON: CT kidney stone [id number] 06/24/2021 12:52 AM FINDINGS: Left deep veins: Unremarkable. The common femoral, femoral, proximal profunda femoral and popliteal veins are patent without thrombus. Normal Doppler waveforms. Normal compressibility and/or augmentation response. Left superficial veins: Unremarkable. Saphenofemoral junction is patent without thrombus. Soft tissues: Unremarkable. US/CV venous duplex [facility] [id number] IMPRESSION: No evidence of deep vein thrombosis.
--- NOTE | 2021-07-30 21:38 | XRR_ITS ---
PROCEDURE INFORMATION: Exam: XR Chest Exam date and time: 07/30/2021 9:38 PM Age: 31 years old Clinical indication: Cough and fever and shortness of breath; Additional info: Fever, cough, SOB TECHNIQUE: Imaging protocol: XR of the chest. Views: 1 view. Total images: 1 COMPARISON: CR XR KUB [id number] 06/30/2021 2:25 PM FINDINGS: Lungs: No visible active interstitial or alveolar airspace disease. Pleural spaces: Unremarkable. No pleural effusion. No pneumothorax. Heart/Mediastinum: Cardiac structures and configuration within normal limits. Bones/joints: Unremarkable. Soft tissues: Heavy body habitus. XR/XR chest 1V portable [id number] IMPRESSION: Nonacute.
--- NOTE | 2021-07-30 21:40 | W.ED.FEVER ---
HPI - Fever General: Chief Complaint: Fever Stated Complaint: Coughing\Fever\SOB Time Seen by Provider: 07/30/21 21:32 Source: patient Mode of arrival: ambulatory Limitations: no limitations History of Present Illness: HPI Narrative: Patient is a 31-year-old male who presents to ED today with a complaint of a fever, productive cough, rhinorrhea, and shortness of breath. Patient states he initially began noticing symptoms about a week ago. He recently had a trip to [place] and states 4 of the individuals that he traveled with tested positive for COVID. He began taking his temperature and when he ran a fever he went to [facility] where he had a rapid COVID performed which was negative. Patient states fever has been as high as 104. He is afebrile upon arrival. He does also report recent travel to [place]. He does mention following this trip he began having some pain to his left calf. He has not noticed any redness or swelling. No previous history of DVT. He is unvaccinated for COVID. MD elicited complaint: fever Onset (ago): day(s) Measured temperature: 104 F Context: sick contacts and recent travel Exacerbating factors: nothing Relieving factors: acetaminophen Associated symptoms: Reports chills and extremity pain (reports left calf pain); Deny abdominal pain, flank pain, chest pain, diarrhea, dysuria, headache(s), nasal congestion, nausea, sinus pain or vomiting Treatments prior to arrival fever: acetaminophen Review of Systems Const: Reports: fever(s), chills and body aches Eyes: Denies: change in vision, blurry vision or photophobia ENMT: Denies: throat pain, odynophagia, nasal discharge, nasal congestion, post nasal drip or sinus pain Card: Reports: dyspnea on exertion; Denies: chest pain, palpitations, irregular heart rhythm, edema, swelling of feet/ankles, lightheadedness, syncope, pre-syncope, orthopnea, leg pain with exertion or acrocyanosis Resp: Reports: dyspnea, productive cough, change in phlegm color and chest congestion; Denies: wheezing or hemoptysis GI: Denies: abdominal pain, nausea, vomiting or diarrhea : Denies: flank pain, dysuria or hematuria Musc: Reports: extremity pain (reports left calf pain); Denies: neck pain, back pain, extremity swelling or joint pain Skin/Breast: Denies: rash or new lesions Neuro: Denies: headache(s), numbness in extremities, weakness in extremities, sensory changes, difficulty walking or dizziness PFSH ED PFSH: Medical History Right ureteral stone Family History Other Cancer Diabetes Social History Alcohol intake: never Marital status: Current occupational status: employed Physical Exam Const: COMMON NORMALS: no acute distress, patient oriented x3, no limitations and alert GENERAL APPEARANCE: cooperative NUTRITIONAL APPEARANCE: obese morbidly obese ORIENTATION/CONSCIOUSNESS: Yes awake, Yes oriented to person, Yes oriented to place and Yes oriented to time HENMT: COMMON NORMALS: normocephalic and atraumatic HEAD & SCALP: normocephalic and atraumatic Resp: COMMON NORMALS: normal respiratory effort and clear to auscultation bilaterally AUSCULTATION: clear to auscultation bilaterally Cardio: COMMON NORMALS: regular rhythm RATE: tachycardic (very mild) RHYTHM: regular rhythm Extremity: COMMON NORMALS: capillary refill normal, no clubbing, cyanosis or edema and no pedal edema NARRATIVE EXTREMITY EXAM: mild pain to L upper calf; no obvious swelling noted; no erythema/warmth; no palpable cords; equivocal Luis Manuel's GENERAL: Yes normal exam except as noted Neuro: COMMON NORMALS: patient oriented x3, moves all extremities, no focal motor deficits, no sensory deficits noted and gait normal SENSORIUM/ORIENTATION: Yes alert, Yes oriented to person, Yes oriented to place and Yes oriented to time Skin: COMMON NORMALS: no rashes or lesions noted GENERAL SKIN EXAM: no rashes or lesions noted Course Vital Signs: Vital signs: Vital Signs Temperature 98.5 F 07/30/21 21:24 Pulse Rate 101 H 07/30/21 21:24 Respiratory Rate 16 07/30/21 21:24 Blood Pressure 113/82 07/30/21 21:24 Pulse Oximetry 97 07/30/21 21:24 MDM - Fever MDM Narrative: Medical decision making narrative: Patient clinically appears in no acute distress. His vital signs are stable apart from some very mild tachycardia upon initial evaluation however this resolved during reassessment. His US is negative for DVT. He has no white count. Remainder of labs are fairly unremarkable. Influenza negative. PCR COVID pending. CXR is normal. Recommend conservative treatment for viral upper respiratory/illness at this time. Return to ED precautions verbally given to patient. If PCR returns positive I would highly encourage MCA based on his weight/risk factors. Lab Data: Labs: Lab Results 07/30/21 07/30/21 07/30/21 22:05 22:05 22:05 WBC 5.7 10^3/uL 10^3/ uL (4.0-10.0) RBC 4.89 10^6/uL 10^6 /uL (4.1-5.3) Hgb 14.8 g/dL g/dL (11.7-16.6) Hct 45.6 % % (42.0-52.0) MCV 93.3 fl fl (80-94) MCH 30.3 pg pg (28.0-34.0) MCHC 32.5 g/dL g/dL (30.0-36.0) RDW 13.0 % % (12.1-15.1) Plt Count 193 10^3/cmm 10^3 /cmm (130-400) MPV 11.1 fL H fL (7.4-10.4) Neut % (Auto) 46.2 % % Lymph % (Auto) 29.7 % % [place] % (Auto) 22.1 % % Eos % (Auto) 1.1 % % Baso % (Auto) 0.7 % % Neut # (Auto) 2.62 10^3/uL 10^3 /uL (1.8-7.7) Lymph # (Auto) 1.7 10^3/uL 10^3/ uL (0.8-4.8) [place] # (Auto) 1.3 10^3/uL H 10^ 3/uL (0.2-0.9) Eos # (Auto) 0.1 10^3/uL 10^3/ uL (0.0-0.8) Baso # (Auto) 0.0 10^3/uL 10^3/ uL (0.0-0.1) Nucleated RBC % (a uto) 0 % % Nucleated RBCs # 0.0 /100WBC /100W BC Sodium 135 mmol/L L mmol /L (136-145) Potassium 3.9 mmol/L mmol/L (3.5-5.1) Chloride 102 mmol/L mmol/L (98-107) Carbon Dioxide 21 mmol/L L mmol/ L (22-29) Anion Gap 15.9 (5-19) BUN 11 mg/dL mg/dL (6-20) Creatinine 0.7 mg/dL mg/dL (0.7-1.2) GFR Calculation 131.5 mL/min H mL /min (90-130) Glucose 106 mg/dL mg/dL (65-115) Calculated Osmolal ity 280 mOsm/kg L mOs m/kg (285-295) Calcium 8.7 mg/dL mg/dL (8.5-10.5) Total Bilirubin 0.2 mg/dL mg/dL (0.15-1.2) AST 34 U/L U/L (0-40) ALT 53 U/L H U/L (0-41) Alkaline Phosphata se 76 IU/L IU/L (40-130) Total Protein 6.6 g/dL g/dL (6.6-8.7) Albumin 4.0 g/dL g/dL (3.5-5.2) Globulin 2.6 g/dL g/dL (1.3-4.6) Urine Color Urine Appearance Urine pH Ur Specific Gravit y Urine Protein Urine Glucose (UA) Urine Ketones Urine Blood Urine Nitrate Urine Bilirubin Urine Urobilinogen Ur Leukocyte [place] Influenza Type A A g Negative (Negative) Influenza Type B A g Negative (Negative) 07/30/21 22:50 WBC RBC Hgb Hct MCV MCH MCHC RDW Plt Count MPV Neut % (Auto) Lymph % (Auto) [place] % (Auto) Eos % (Auto) Baso % (Auto) Neut # (Auto) Lymph # (Auto) [place] # (Auto) Eos # (Auto) Baso # (Auto) Nucleated RBC % (a uto) Nucleated RBCs # Sodium Potassium Chloride Carbon Dioxide Anion Gap BUN Creatinine GFR Calculation Glucose Calculated Osmolal ity Calcium Total Bilirubin AST ALT Alkaline Phosphata se Total Protein Albumin Globulin Urine Color Yellow (Yellow) Urine Appearance Clear (CLEAR) Urine pH 5 (5-7) Ur Specific Gravit y 1.030 (1.005-1.030) Urine Protein Neg (Negative) Urine Glucose (UA) Norm (Normal) Urine Ketones 1+ H (Negative) Urine Blood Neg (Negative) Urine Nitrate Negative (Negative) Urine Bilirubin 1+ H (Negative) Urine Urobilinogen 1 mg/dL H mg/dL (Negative) Ur Leukocyte [place] Negative (Negative) Influenza Type A A g Influenza Type B A g Imaging Data^: US L LE venous: My impression: Per Leeroy Quiles, US tech?no DVT CXR: Radiologist's impression: [address] [id number] ReportSigned Patient: Seymour Cook #: [id number]: 1990Acct#:[id number]/Sex: 31 MADM Date: 07/30/21Loc: ERRoom/Bed:Attending Dr: Ordering Provider/Ordering MD: Mary Black Date of Service: 07/30/21 Procedure(s): XR chest 1V portable [id number] Accession Number(s): [id number] Report Number: [id number] PROCEDURE INFORMATION: Exam: XR Chest Exam date and time: 07/30/2021 9:38 PM Age: 31 years old Clinical indication: Cough and fever and shortness of breath; Additional info: Fever, cough, SOB TECHNIQUE: Imaging protocol: XR of the chest. Views: 1 view. Total images: 1 COMPARISON: CR XR KUB [id number] 06/30/2021 2:25 PM FINDINGS: Lungs: No visible active interstitial or alveolar airspace disease. Pleural spaces: Unremarkable. No pleural effusion. No pneumothorax. Heart/Mediastinum: Cardiac structures and configuration within normal limits. Bones/joints: Unremarkable. Soft tissues: Heavy body habitus. XR/XR chest 1V portable [id number] IMPRESSION: Nonacute. Dictated By:Katheryn Salas By:Katheryn Salas Date/Time:07/30/212228DD/ 37 Discharge Plan Discharge Patient Disposition: Home Clinical Impression: Viral upper respiratory illness Condition: Stable Prescriptions: No Action lisinopril 20 mg tablet 20 mg PO DAILY RF: 0 hydromorphone [Dilaudid] 4 mg tablet 4 mg PO Q8H PRN (Reason: pain) 4 Days Qty: 12 RF: 0 tamsulosin 0.4 mg capsule 0.4 mg PO DAILY Qty: 20 RF: 0 promethazine 25 mg suppository 25 mg LA Q6H PRN (Reason: nausea and vomiting) Qty: 12 RF: 1 ondansetron 4 mg tablet,disintegrating 4 mg PO Q8H PRN (Reason: nausea and vomiting) Qty: 12 RF: 0 levofloxacin 500 mg tablet 500 mg PO DAILY 10 Days Qty: 10 RF: 1 hydromorphone [Dilaudid] 4 mg tablet 4 mg PO Q4H PRN (Reason: pain) Qty: 10 RF: 0 Discharge Orders: Discharge ED (Routine); Ordered 07/30/21 Ordered By: Mary Black Referrals: Susan Ramos INTERNAL AUDITOR [Primary Care Provider] - Patient Instructions: Viral Syndrome (ED) Coding Level of Care Code ED Fruit I Farmworker for Chg Fwd Exam Detailed
[2021-07-30 22:12] LABS: Basophils % 0.7 %; Eosinophils # 0.1 10^3/uL (0.0-0.8); Eosinophils % 1.1 %; Hematocrit 45.6 % (42.0-52.0); Hemoglobin 14.8 g/dL (11.7-16.6); Lymphocytes # 1.7 10^3/uL (0.8-4.8); Lymphocytes % 29.7 %; Mean Corpuscular HGB Conc 32.5 g/dL (30.0-36.0); Mean Corpuscular Hemoglobin 30.3 pg (28.0-34.0); Mean Corpuscular Volume 93.3 fl (80-94); Mean Platelet Volume 11.1 fL (7.4-10.4); Monocytes # 1.3 10^3/uL (0.2-0.9); Monocytes % 22.1 %; Neutrophils # 2.62 10^3/uL (1.8-7.7); Neutrophils % 46.2 %; Nucleated Red Blood Cells % 0 %; Platelet Count 193 10^3/cmm (130-400); Red Blood Count 4.89 10^6/uL (4.1-5.3); White Blood Count 5.7 10^3/uL (4.0-10.0)
[2021-07-30 22:32] LABS: Influenza A by IFA Negative (Negative); Influenza B by IFA Negative (Negative)
[2021-07-30 22:36] LABS: Alanine Aminotransferase 53 U/L (0-41); Alkaline Phosphatase 76 IU/L (40-130); Anion Gap 15.9 (5-19); Aspartate Amino Transferase 34 U/L (0-40); Blood Urea Nitrogen 11 mg/dL (6-20); Calcium 8.7 mg/dL (8.5-10.5); Carbon Dioxide 21 mmol/L (22-29); Chloride 102 mmol/L (98-107); Globulin 2.6 g/dL (1.3-4.6); Glomerular Filtration Rate 131.5 mL/min (90-130); Glucose 106 mg/dL (65-115); Osmolality Calculated 280 mOsm/kg (285-295); Potassium 3.9 mmol/L (3.5-5.1); Sodium 135 mmol/L (136-145); Total Bilirubin 0.2 mg/dL (0.15-1.2); Total Protein 6.6 g/dL (6.6-8.7)
[2021-07-30 22:53] LABS: Add Urine Microscopic? NO; Charge for UA Resulting for Rev
[2021-07-30 23:20] LABS: Bilirubin Urine 1+ (Negative); Blood Urine Neg (Negative); Glucose Urine UA Norm (Normal); Ketones Urine 1+ (Negative); Leukocyte Esterase Urine Negative (Negative); Nitrate Urine Negative (Negative); Protein Urine Neg (Negative); Urine Appearance Clear (CLEAR); Urine Color Yellow (Yellow); Urobilinogen Urine 1 mg/dL (Negative); pH Urine 5 (5-7)
[2021-07-30 23:35] VITALS: PULSE 99; RESP 20; O2SAT 98
[2021-07-30 23:53] LABS: Adenovirus Not Detected (NOT DETECT); Chlamydia Pneumoniae Not Detected (NOT DETECT); Coronavirus 229E,HKU1,NL63,OC4 Not Detected (NOT DETECT); Human Metapneumovirus Not Detected (NOT DETECT); Human Rhinovirus/Enterovirus Not Detected (NOT DETECT); Influenza A Not Detected (NOT DETECT); Influenza A H1 Not Detected (NOT DETECT); Influenza A H1-2009 Not Detected (NOT DETECT); Influenza A H3 Not Detected (NOT DETECT); Influenza B Not Detected (NOT DETECT); Mycoplasma Pneumoniae Not Detected (NOT DETECT); Parainfluenza Virus Type 1 Not Detected (NOT DETECT); Parainfluenza Virus Type 2 Not Detected (NOT DETECT); Parainfluenza Virus Type 3 Not Detected (NOT DETECT); Parainfluenza Virus Type 4 Not Detected (NOT DETECT); Respiratory Syncytial Virus A Not Detected (NOT DETECT); Respiratory Syncytial Virus B Not Detected (NOT DETECT); SARS-COV-2 Detected (NOT DETECT)
--- NOTE | 2021-08-05 06:12 | DCPLANNER ---
client services account manager had message to schedule an outpatient MCA infusion for patient. client services account manager faxed signed order to centralized scheduling, who will call patient with appointment information. Patient did attend infusion.
== END 2021-07-30 23:35 | disposition home or self-care (01) ==
PROVIDERS: Emergency Provider Physician Assistant; PCP Nurse Practitioner Family
DX: U07.1 COVID-19 (principal)
CPT/HCPCS: 71045; 80053; 81003; 85025; 87635; 87804; 93971; 99282

== ENCOUNTER 2021-08-04 07:35 | Outpatient (CLI) | payer BC, SELFPAY ==
[2021-08-04 08:20] VITALS: BMI 43.1
[2021-08-04 08:21] VITALS: BP 136/90; PULSE 99; RESP 17; TEMP 36.6; O2SAT 98; BMI 43.1
[2021-08-04 08:47] VITALS: BP 141/88; PULSE 96; RESP 16; TEMP 36.8; O2SAT 96
[2021-08-04 09:47] VITALS: BP 127/81; PULSE 101; RESP 18; TEMP 36.8; O2SAT 97
== END 2021-08-04 07:36 | disposition home or self-care (01) ==
LOC: OPS 07:39
PROVIDERS: PCP Nurse Practitioner Family; Visit Provider Physician Assistant
DX: U07.1 COVID-19 (principal)
CPT/HCPCS: 96365

== ENCOUNTER 2022-06-04 00:27 | Emergency (ER) | payer BC, SELFPAY ==
[2022-06-04 00:32] VITALS: BP 163/109; PULSE 93; RESP 20; TEMP 36.6; O2SAT 97; BMI 43.7
[2022-06-04 00:50] LABS: Basophils # 0.1 10^3/uL (0.0-0.1); Basophils % 0.5 %; Eosinophils # 0.3 10^3/uL (0.0-0.8); Eosinophils % 2.7 %; Hematocrit 43.2 % (42.0-52.0); Hemoglobin 13.9 g/dL (11.7-16.6); Lymphocytes # 3.5 10^3/uL (0.8-4.8); Lymphocytes % 28.7 %; Mean Corpuscular HGB Conc 32.2 g/dL (30.0-36.0); Mean Corpuscular Hemoglobin 30.3 pg (28.0-34.0); Mean Corpuscular Volume 94.1 fl (80-94); Mean Platelet Volume 10.9 fL (7.4-10.4); Monocytes # 1.2 10^3/uL (0.2-0.9); Monocytes % 9.6 %; Neutrophils # 7.02 10^3/uL (1.8-7.7); Neutrophils % 58.3 %; Nucleated Red Blood Cells % 0 %; Platelet Count 224 10^3/cmm (130-400); Red Blood Count 4.59 10^6/uL (4.1-5.3); Red Cell Distribution Width 13.4 % (12.1-15.1); White Blood Count 12.1 10^3/uL (4.0-10.0)
[2022-06-04 01:11] LABS: Alanine Aminotransferase 39 U/L (0-41); Albumin Level 3.7 g/dL (3.5-5.2); Alkaline Phosphatase 86 U/L (40-130); Anion Gap 12.7 (5-19); Aspartate Amino Transferase 27 U/L (0-40); Blood Urea Nitrogen 14 mg/dL (6-20); Calcium 8.8 mg/dL (8.5-10.5); Carbon Dioxide 26 mmol/L (22-29); Chloride 101 mmol/L (98-107); Glomerular Filtration Rate 112.8 mL/min (90-130); Glucose 125 mg/dL (65-115); Lipase 27 U/L (13-60); Osmolality Calculated 284 mOsm/kg (285-295); Potassium 3.7 mmol/L (3.5-5.1); Sodium 136 mmol/L (136-145); Total Bilirubin 0.3 mg/dL (0.15-1.2); Total Protein 6.7 g/dL (6.6-8.7)
--- NOTE | 2022-06-04 01:19 | ED_ITS ---
HPI - Back Pain/Injury General: Chief Complaint: Back Pain/Injury Stated Complaint: Abd pains Time Seen by Provider: 06/04/22 00:32 Source: patient History of Present Illness: 31-year-old male with a history of kidney stones. He presents with left flank pain. He notes that 3:00 yesterday afternoon he began to have pain. He was out of town in [place], ended up in the ER in [facility]. He was diagnosed with kidney stones on the left. No mention of any infection. He notes that he was improved until 11:00 at night tonight, when pain awoke him again. He took a pain pill at home, but vomited the medication up immediately. He has had no relief since MD elicited complaint: back pain Pertinent past history: kidney stones Onset (ago): day(s) Timing: intermittent Severity: severe Similar Symptoms Previously: Yes Quality: stabbing Location: left flank Radiation: abdomen and groin Exacerbating factors: none Relieving factors: none Associated symptoms: Reports abdominal pain, chills, nausea and vomiting; Deny difficulty walking, fecal incontinence, fever(s), hematuria or urinary urgency Treatments prior to arrival: prescription analgesics Review of Systems Const: Reports: chills; Denies: fever(s) ENMT: Denies: throat pain Card: Denies: chest pain or palpitations Resp: Denies: dyspnea or productive cough GI: Reports: abdominal pain, nausea and vomiting; Denies: fecal incontinence : Denies: urinary urgency or hematuria Musc: Reports: back pain Skin/Breast: Denies: rash Neuro: Denies: difficulty walking [facility] ED PFSH: Medical History HTN (hypertension) Obesity Prediabetes Radiculopathy, lumbar region Right ureteral stone Family History Other Cancer Diabetes Social History Alcohol intake: never Marital status: Current occupational status: employed Physical Exam Const: GENERAL APPEARANCE: cooperative; not comfortable and not frail appearing HENMT: COMMON NORMALS: normocephalic, atraumatic and Normal external nose present HEAD & SCALP: normocephalic and atraumatic FACE & SINUS: normal facial exam and face symmetric NOSE: Normal external nose present Eye: COMMON NORMALS: Equal, round and reactive pupils present and EOMs intact bilaterally PUPIL: Yes Equal, round and reactive pupils present Neck/C-Spine: GENERAL: Yes trachea midline Chest: CHEST: Yes Symmetrical chest wall rise Resp: COMMON NORMALS: normal respiratory effort, No retractions, No use of accessory muscles and clear to auscultation bilaterally AUSCULTATION: clear to auscultation bilaterally Cardio: COMMON NORMALS: regular rate and regular rhythm RATE: regular rate RHYTHM: regular rhythm GI: COMMON NORMALS: Normal to inspection, nondistended, normoactive bowel sounds present : BLADDER/KIDNEY EXAM: Yes CVA tenderness on the left Back/Pelvis: GENERAL BACK: Yes CVA tenderness Extremity: COMMON NORMALS: no pedal edema Neuro: IVANA COMA SCALE: document GCS findings [place] coma scale eye opening: Spontaneous Ivana coma scale verbal response: Orientated Ivana coma scale motor response: Obey commands [place] coma scale total score: 15 SENSORY EXAM: Yes extremities (intact) Psych: COMMON NORMALS: speech normal SPEECH: Yes normal speech Skin: COMMON NORMALS: no rashes or lesions noted GENERAL SKIN EXAM: no jason hes or lesions noted Course Vital Signs: Vital signs: Vital Signs Temperature 97.9 F 06/04/22 00:32 Pulse Rate 85 06/04/22 03:06 Respiratory Rate 16 06/04/22 03:06 Blood Pressure 126/81 06/04/22 03:06 Pulse Oximetry 95 06/04/22 03:06 Oxygen Delivery Me thod 06/04/22 00:32 MDM - Back Pain/Injury Medical Decision Making White blood cell count is 12. BMP not remarkable. Urinalysis shows 50-25 reds, 5-10 whites and 0 leukocyte Estrace with no bacteria. Pain is improved. CT shows a 2.7 mm calculus in the left ureter that is partially obstructing. Culprit of his symptoms. He will be given pain medication, antiemetic, and Flomax. Labs : 06/04/22 00:35 06/04/22 00:35 Radiology Impressions Abdomen/Pelvis CT 06/04/22 01:30 IMPRESSION: 1. Partially obstructing 2.7 mm calculus within the left ureter seen at the pelvic brim. 2. Nonobstructing 3.1 mm calculus in the lower pole of the left kidney. 3. Normal appendix 4. Fatty infiltration of the liver Laboratory Results WBC 12.1 10^3/uL (4.0-10.0) H 06/04/22 00:35 RBC 4.59 10^6/uL (4.1-5.3) 06/04/22 00:35 Hgb 13.9 g/dL (11.7-16.6) 06/04/22 00:35 Hct 43.2 % (42.0-52.0) 06/04/22 00:35 MCV 94.1 fl (80-94) H 06/04/22 00:35 MCH 30.3 pg (28.0-34.0) 06/04/22 00:35 MCHC 32.2 g/dL (30.0-36.0) 06/04/22 00:35 RDW 13.4 % (12.1-15.1) 06/04/22 00:35 Plt Count 224 10^3/cmm (130-400) 06/04/22 00:35 MPV 10.9 fL (7.4-10.4) H 06/04/22 00:35 Neut % (Auto) 58.3 % 06/04/22 00:35 Lymph % (Auto) 28.7 % 06/04/22 00:35 [place] % (Auto) 9.6 % 06/04/22 00:35 Eos % (Auto) 2.7 % 06/04/22 00:35 Baso % (Auto) 0.5 % 06/04/22 00:35 Neut # (Auto) 7.02 10^3/uL (1.8-7.7) 06/04/22 00:35 Lymph # (Auto) 3.5 10^3/uL (0.8-4.8) 06/04/22 00:35 [place] # (Auto) 1.2 10^3/uL (0.2-0.9) H 06/04/22 00:35 Eos # (Auto) 0.3 10^3/uL (0.0-0.8) 06/04/22 00:35 Baso # (Auto) 0.1 10^3/uL (0.0-0.1) 06/04/22 00:35 Nucleated RBC % (auto) 0 % 06/04/22 00:35 Nucleated RBCs # 0.0 /100WBC 06/04/22 00:35 Sodium 136 mmol/L (136-145) 06/04/22 00:35 Potassium 3.7 mmol/L (3.5-5.1) 06/04/22 00:35 Chloride 101 mmol/L (98-107) 06/04/22 00:35 Carbon Dioxide 26 mmol/L (22-29) 06/04/22 00:35 Anion Gap 12.7 (5-19) 06/04/22 00:35 BUN 14 mg/dL (6-20) 06/04/22 00:35 Creatinine 0.8 mg/dL (0.7-1.2) 06/04/22 00:35 GFR Calculation 112.8 mL/min (90-130) 06/04/22 00:35 Glucose 125 mg/dL (65-115) H 06/04/22 00:35 Calculated Osmolality 284 mOsm/kg (285-295) L 06/04/22 00:35 Calcium 8.8 mg/dL (8.5-10.5) 06/04/22 00:35 Total Bilirubin 0.3 mg/dL (0.15-1.2) 06/04/22 00:35 AST 27 U/L (0-40) 06/04/22 00:35 ALT 39 U/L (0-41) 06/04/22 00:35 Alkaline Phosphatase 86 U/L (40-130) 06/04/22 00:35 Total Protein 6.7 g/dL (6.6-8.7) 06/04/22 00:35 Albumin 3.7 g/dL (3.5-5.2) 06/04/22 00:35 Globulin 3.0 g/dL (1.3-4.6) 06/04/22 00:35 Lipase 27 U/L (13-60) 06/04/22 00:35 Urine Color Yellow (Yellow) 06/04/22 01:48 Urine Appearance Sl hazy (CLEAR) A 06/04/22 01:48 Urine pH 5 (5-7) 06/04/22 01:48 Ur Specific [place] 1.025 (1.005-1.030) 06/04/22 01:48 Urine Protein Trace (Negative) 06/04/22 01:48 Urine Glucose (UA) Norm (Normal) 06/04/22 01:48 Urine Ketones Negative (Negative) 06/04/22 01:48 Urine Blood 3+ (Negative) H 06/04/22 01:48 Urine Nitrate Negative (Negative) 06/04/22 01:48 Urine Bilirubin Neg (Negative) 06/04/22 01:48 Urine Urobilinogen Neg mg/dL (Negative) 06/04/22 01:48 Ur Leukocyte Esterase Negative (Negative) 06/04/22 01:48 Urine RBC 15-25 /hpf (0-2) H 06/04/22 01:48 Urine WBC 5-10 /hpf (0-5) H 06/04/22 01:48 Ur Squamous Epith Cells 0-4 /hpf (0-5) H 06/04/22 01:48 Amorphous Sediment Not Reportable 06/04/22 01:48 Urine Bacteria None /hpf (NONE) 06/04/22 01:48 Urine Yeast Trace /hpf 06/04/22 01:48 Discharge Plan Discharge Patient Disposition: Home Clinical Impression: Ureterolithiasis Condition: Stable Prescriptions: New Percocet 7.5-325 mg tablet 1 tab PO Q6H PRN (Reason: pain) Qty: 10 0RF ondansetron 4 mg film 4 mg PO DAILY PRN (Reason: nausea and vomiting) Qty: 10 0RF Flomax 0.4 mg capsule 0.4 mg PO DAILY Qty: 10 0RF No Action Ozempic 0.25 mg or 0.5 mg(2 mg/1.5 mL) pen injector 0.25 mg SUBCUT .weekly 28 Days Qty: 1.5 0RF Rx Instructions: 0.25mg weekly for week 1-4, increase to 0.5mg for week 5-8 Ozempic 1 mg/dose (4 mg/3 mL) pen injector 1 mg SUBCUT .weekly 28 Days Qty: 3 0RF Rx Instructions: weeks 9-12- increase dose to 1mg once weekly gabapentin 100 mg capsule 100 mg PO DAILY 30 Days Qty: 30 0RF Rx Instructions: take at bedtime Discharge Orders: Discharge ED (Routine); Ordered 06/04/22 Ordered By: Benigno Branham Referrals: Timbo Wilde MD [Physician] - Susan Ramos FNP [Primary Care Provider] - Patient Instructions: Kidney Stones (ED), Opioid Safety, Pain Management Activity Restrictions/Additional Instructions: Take nausea medication scheduled for the next 24 hours, then as needed. Return for fever greater than 100, vomiting liquids or medications despite treatment, worsening pain despite treatment, other concerning symptoms. Drink plenty of clear liquids. Coding Level of Care Code ED Lead Nuclear Medicine Technologist for Chg Fwd Exam Comprehensive
[2022-06-04] MEDS: sodium chloride 0.9% 1,000 ML 999 ML IV (01:22)
[2022-06-04] MEDS: ondansetron 2 mg/ML SDV 2 mL 4 MG IVP (01:23)
[2022-06-04 01:26] VITALS: RESP 20; O2SAT 95
[2022-06-04] MEDS: HYDROmorphone 1 mg/mL INJ 1 mL IVP (01:26)
--- NOTE | 2022-06-04 01:30 | CTR_ITS ---
PROCEDURE INFORMATION: Exam: CT Abdomen And Pelvis Without Contrast Exam date and time: 06/04/2022 1:34 AM Age: 31 years old Clinical indication: Abdominal pain; Flank; Left; Prior surgery; Surgery date: 6+ months; Surgery type: Ureteral stent 2020; Additional info: Left flank pain TECHNIQUE: Imaging protocol: Computed tomography of the abdomen and pelvis without contrast. Radiation optimization: All CT scans at this facility use at least one of these dose optimization techniques: automated exposure control; mA and/or kV adjustment per patient size (includes targeted exams where dose is matched to clinical indication); or iterative reconstruction. COMPARISON: CT kidney stone [id number] 06/24/2021 12:52 AM RADIATION DOSE METRICS: Total DLP (mGy-cm): 1567.93 FINDINGS: Liver: There is hypoattenuation of the hepatic parenchyma compatible with fatty infiltration. Gallbladder and bile ducts: Normal. No calcified stones. No ductal dilation. Pancreas: Normal. No ductal dilation. Spleen: Normal. No splenomegaly. Adrenal glands: Normal. No mass. Kidneys and ureters: There is a nonobstructing 3.1 mm calculus seen in the lower pole of the left kidney. There is mild hydronephrosis seen the left. Some haziness seen adjacent to the left renal pelvis possibly representing mild inflammatory changes. There is a partially obstructing 2.7 mm left ureteral calculus seen at the pelvic brim. Stomach and bowel: Unremarkable. No obstruction. No mucosal thickening. Appendix: The appendix is visualized and is normal in configuration. Intraperitoneal space: Unremarkable. No free air. No significant fluid collection. Vasculature: Unremarkable. No abdominal aortic aneurysm. Lymph nodes: Unremarkable. No enlarged lymph nodes. Urinary bladder: Unremarkable as visualized. Reproductive: Unremarkable as visualized. Bones/joints: Unremarkable. No acute fracture. Soft tissues: Unremarkable. CT/CT kidney stone [id number] IMPRESSION: 1. Partially obstructing 2.7 mm calculus within the left ureter seen at the pelvic brim. 2. Nonobstructing 3.1 mm calculus in the lower pole of the left kidney. 3. Normal appendix 4. Fatty infiltration of the liver
[2022-06-04 02:37] LABS: Bilirubin Urine Neg (Negative); Blood Urine 3+ (Negative); Glucose Urine UA Norm (Normal); Ketones Urine Negative (Negative); Nitrate Urine Negative (Negative); Protein Urine Trace (Negative); Specific Gravity, Urine 1.025 (1.005-1.030); Urine Appearance SL Hazy (CLEAR); Urine Color Yellow (Yellow); pH Urine 5 (5-7)
[2022-06-04 02:38] LABS: Add Urine Microscopic? YES; Leukocyte Esterase Urine Negative (Negative); Urobilinogen Urine Neg (Negative)
[2022-06-04 02:40] LABS: Add Urine Culture? Yes; RBC Urine 15-25 /hpf (0-2); Squamous Epithelial Cell Urine 0-4 /hpf (0-5)
[2022-06-04 03:06] VITALS: BP 126/81; PULSE 85; RESP 16; O2SAT 95
== END 2022-06-04 03:05 | disposition home or self-care (01) ==
PROVIDERS: Emergency Provider Emergency Medicine; PCP Nurse Practitioner Family
DX: N20.1 Calculus of ureter (principal); I10 Essential (primary) hypertension; Z87.442 Personal history of urinary calculi
CPT/HCPCS: 74176; 80053; 81001; 83690; 85025; 87086; 96361; 96374; 96375; 99285; J1170; J2405; J7030

== ENCOUNTER 2022-06-15 09:53 | Outpatient (CLI) | payer BC, SELFPAY ==
--- NOTE | 2022-06-15 10:12 | XRR_ITS ---
PROCEDURE INFORMATION: Exam: XR Abdomen Exam date and time: 06/15/2022 10:12 AM Age: 31 years old Clinical indication: Condition or disease; Kidney or ureter condition; Calculus (stone) in kidney; Additional info: Stones, kub miller 06/08/22 @ 2:30 pm appt to follow TECHNIQUE: Imaging protocol: Radiologic exam of the abdomen. Views: Frontal supine view of the abdomen. 1 View. COMPARISON: CT kidney stone [id number] 06/04/2022 1:34 AM FINDINGS: Gastrointestinal tract: Normal. No bowel dilation. Organs: No renal calculus identified. Bones/joints: Unremarkable. XR/XR KUB [id number] IMPRESSION: No acute findings.
== END 2022-06-15 09:54 | disposition home or self-care (01) ==
PROVIDERS: PCP Nurse Practitioner Family; Visit Provider Urology
DX: N20.9 Urinary calculus, unspecified (principal)
CPT/HCPCS: 74018; 81003

== ENCOUNTER 2022-10-10 07:49 | Outpatient (CLI) | payer BC, SELFPAY ==
--- NOTE | 2022-10-10 08:00 | MR_ITS ---
WS: [id number] MRI LUMBAR SPINE NONCONTRAST TECHNIQUE: Sagittal T1, T2 and STIR imaging. Axial T1 and T2 imaging. CLINICAL INFORMATION: low back pain, persistent COMPARISON: None. FINDINGS: Mild lumbar curve. No acute compression. No high-grade central canal stenosis. Disc bulging worse L5- S1 with a tiny annular fissure. L1-L2: Normal L2-L3: Normal L3-L4: Mild annular bulging with a tiny annular fissure. Mild facet arthropathy. Spinal canal and for amen are patent. L4-L5: No significant disc bulging. Spinal canal and foramen are patent. Mild facet arthropathy. L5-S1: Shallow RIGHT pericentral disc protrusion L5-S1 slightly contacts the RIGHT S1 nerve root. Spi nal canal and foramen are patent. Visualized pelvic bony structures: Normal. Paravertebral soft tissues: Normal. MR/MR lumbar spine wo con* [id number] IMPRESSION: 1. Mild lumbar curve. No acute compression. No high-grade central canal stenos is. 2. Shallow RIGHT pericentral disc protrusion L5-S1 slightly contacts the RIGHT S1 nerve root. Spinal canal and foramen are patent. 3. Mild facet arthropathy L4-L5 and L5-S1.
== END 2022-10-10 07:50 | disposition home or self-care (01) ==
PROVIDERS: PCP Clinical Nurse Specialist Adult Health; Visit Provider Clinical Nurse Specialist Adult Health
DX: M54.16 Radiculopathy, lumbar region (principal); M51.27 Other intervertebral disc displacement, lumbosacral region
CPT/HCPCS: 72148

== ENCOUNTER 2022-11-22 15:43 | Outpatient (RCR) | payer BC, SELFPAY | END 2022-12-21 23:59 | disposition home or self-care (01) | LOC: SPT 15:43 | PROVIDERS: PCP Clinical Nurse Specialist Adult Health; Visit Provider Clinical Nurse Specialist Adult Health | DX: M54.16 Radiculopathy, lumbar region (principal); M54.41 Lumbago with sciatica, right side | CPT/HCPCS: 97110; 97161; 97530 ==

== ENCOUNTER 2022-12-20 14:02 | Outpatient (CLI) | payer BC, SELFPAY ==
--- NOTE | 2022-12-20 14:12 | XR_ITS ---
WS: [id number] Exam: XR KUB [id number] Date/Time of Exam: 12/20/2022 2:16 PM Reason For Exam: STONES Comparison 06/15/2022. No bowel obstruction or free air. No sign of organ enlargement. No calcifications noted in the region of the kidneys. Regional bony elements appear normal. XR/XR KUB [id number] IMPRESSION: 1. Unremarkable KUB.
== END 2022-12-20 14:03 | disposition home or self-care (01) ==
PROVIDERS: PCP Clinical Nurse Specialist Adult Health; Visit Provider Urology
DX: N20.9 Urinary calculus, unspecified (principal)
CPT/HCPCS: 74018

== ENCOUNTER 2022-12-22 06:00 | Outpatient (RCR) | payer BC, SELFPAY | END 2023-01-16 12:11 | disposition home or self-care (01) | LOC: SPT 06:00 | PROVIDERS: PCP Clinical Nurse Specialist Adult Health; Visit Provider Clinical Nurse Specialist Adult Health | DX: M54.16 Radiculopathy, lumbar region (principal) | CPT/HCPCS: 97110 ==

== ENCOUNTER 2023-03-30 19:44 | Inpatient (IN) | payer BC, SELFPAY ==
[2023-03-30 19:47] VITALS: BP 157/89; PULSE 124; RESP 24; TEMP 37.3; O2SAT 96; BMI 48.7
--- NOTE | 2023-03-30 20:16 | ED_ITS ---
HPI - Skin/Abscess/Foreign Bdy General: Chief complaint: Skin/Abscess/Foreign Body Stated complaint: Left Inter Thigh Time Seen by Provider: 03/30/23 19:59 Source: patient and family Mode of arrival: ambulatory Limitations: no limitations History of Present Illness: Patient presents to the emergency department today for worsening pain and spreading infection to the left upper inner thigh region. Patient noticed an area of tenderness and redness several days ago and was seen by his primary care doctor. He has been on Bactrim the last 3 days however, the area is gotten significantly larger and significantly more tender. Patient is feeling ill and states he has not gotten out of bed the last 3 days due to ill feeling and worsening of pain. Patient reports he has had boils before but this is unlike anything he has had before. states that in the past, these areas would develop a rodriguez but, this appears to be more diffuse and widespread. Review of Systems General: Reports: 10 or more systems reviewed and unremarkable except in HPI and below PFSH ED 2 PFSH: Medical History HTN (hypertension) Major depression Obesity Prediabetes Radiculopathy, lumbar region Right ureteral stone Surgical History S/P ureteral stent placement Family History Mother No problems noted. Father Hypertension Other Cancer Diabetes Social History Smoking and tobacco status: current some day smoker Alcohol intake: never Marital status: Current occupational status: employed Physical Exam Const: COMMON NORMALS: patient oriented x3 and alert OTHER: Patient is pleasant and social but is obviously uncomfortable and in pain. Patient is profusely sweating. HENMT: COMMON NORMALS: normocephalic, atraumatic and hearing grossly normal bilaterally HEAD & SCALP: normocephalic and atraumatic Eye: COMMON NORMALS: Equal, round and reactive pupils present, EOMs intact bilaterally and conjunctivae normal CONJUNCTIVA: Yes conjunctivae normal PUPIL: Yes Equal, round and reactive pupils present Neck/C-Spine: COMMON NORMALS: full ROM and no JVD Lymph: LYMPHATIC: no lymphadenopathy noted Resp: COMMON NORMALS: normal respiratory effort, No retractions and No use of accessory muscles Cardio: COMMON NORMALS: no JVD and regular rate RATE: regular rate GI: OTHER: No signs of acute scrotal edema. Patient has noticeable swelling and significant induration affecting the midline and left lateral perineal region extending back towards the inferior left buttock and inferior gluteal cleft and extending out towards the proximal upper, inner left thigh. No signs of open wounds or active draining. Extremity: NARRATIVE EXTREMITY EXAM: Patient is independently ambulatory and weightbearing but, is walking with al tered gait due to pain and discomfort of the left lower extremity. Neuro: COMMON NORMALS: patient oriented x3 SENSORIUM/ORIENTATION: Yes alert Psych: COMMON NORMALS: mental status grossly normal, Normal thought process present, cooperative and normal affect THOUGHT PROCESS: Normal thought process present Course Vital Signs: Vital signs: Vital Signs Temperature 98.5 F 03/31/23 00:00 Pulse Rate 93 03/31/23 00:00 Respiratory Rate 18 03/31/23 00:00 Blood Pressure 126/84 03/31/23 00:00 Pulse Oximetry 95 03/31/23 00:00 Oxygen Delivery Me thod Room Air 03/31/23 00:00 MDM - Skin/Abscess/Foreign Bdy Medicial Decision Making Initial evaluation of the patient's swelling and erythema is 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 Patient is prediabetic and outpatient oral antibiotics are not helping. Lab work shows an elevated white blood cell count at 15.48. He has elevated inflammatory markers. He has normal lactic and procalcitonin levels and the pain seemed to be improved with morphine and Toradol. CT examination does confirm subcutaneous edema from the proximal thigh into the perineal region with a finding of a 4.3 cm fluid collection suggestive of an abscess. They found no subcutaneous emphysema to indicate Megan's at this time. I spoke with Dr. Ac regarding the patient's evaluation and as to whether general surgery or hospital should be consulted. He recommended consulting hospitalist first as GEN surge could always be a secondary consult. I was able to speak with Dr. Campbell who requested a venous Doppler of the left leg and agreed to inpatient admission. Patient was notified of the recommendation for the admission and agreed. We will defer care, intervention, and further treatment of this patient to the hospitalist services at this time. Differential Diagnosis Likely abscess of skin or subcutaneous tissue and cellulitis; Unlikely insect bites, impetigo or contact dermatitis Lab Data 03/30/23 20:49 03/30/23 20:[address] 03/30/23 20:58 IMPRESSION: 1. Left proximal thigh to perineal region subcutaneous edema with a 4.3 cm fluid collection in the proximal medial thigh suggestive of an abscess and cellulitis. Negative for subcutaneous emphysema which is typically seen with Megan's gangrene. 2. Prominent inguinal lymph nodes bilaterally measuring up to 14 mm, nonspecific. Venous Duplex 03/30/23 22:27 IMPRESSION: No evidence of deep vein thrombosis. Laboratory Results WBC 15.48 10^3/uL (3.29-11.43) H 03/30/23 20:49 RBC 5.01 10^6/uL (3.85-5.65) 03/30/23 20:49 Hgb 14.60 g/dL (11.27-16.99) 03/30/23 20:49 Hct 45.0 % (37-53) 03/30/23 20:49 MCV 89.8 fl (82-101) 03/30/23 20:49 MCH 29.1 pg (27-33) 03/30/23 20:49 MCHC 32.4 g/dL (30-55) 03/30/23 20:49 RDW 12.5 % (12.1-15.1) 03/30/23 20:49 Plt Count 237 10^3/cmm (157-399) 03/30/23 20:49 MPV 10.5 fL (7.4-10.4) H 03/30/23 20:49 Neut % (Auto) 69.7 % 03/30/23 20:49 Lymph % (Auto) 18.9 % 03/30/23 20:49 [place] % (Auto) 8.8 % 03/30/23 20:49 Eos % (Auto) 1.9 % 03/30/23 20:49 Baso % (Auto) 0.4 % 03/30/23 20:49 Neut # (Auto) 10.80 10^3/uL (1.8-7.7) H 03/30/23 20:49 Lymph # (Auto) 2.9 10^3/uL (0.8-4.8) 03/30/23 20:49 [place] # (Auto) 1.4 10^3/uL (0.2-0.9) H 03/30/23 20:49 Eos # (Auto) 0.3 10^3/uL (0.0-0.8) 03/30/23 20:49 Baso # (Auto) 0.1 10^3/uL (0.0-0.1) 03/30/23 20:49 Nucleated RBC % (auto) 0 % 03/30/23 20:49 Nucleated RBCs # 0.0 /100WBC 03/30/23 20:49 ESR 53 mm/hr (0-10) H 03/30/23 20:49 Sodium 133 mmol/L (136-145) L 03/30/23 20:49 Potassium 4.3 mmol/L (3.5-5.1) 03/30/23 20:49 Chloride 98 mmol/L (98-107) 03/30/23 20:49 Carbon Dioxide 23 mmol/L (22-29) 03/30/23 20:49 Anion Gap 16.3 (5-19) 03/30/23 20:49 BUN 14 mg/dL (6-20) 03/30/23 20:49 Creatinine 0.9 mg/dL (0.7-1.2) 03/30/23 20:49 GFR Calculation 97.8 mL/min (90-130) 03/30/23 20:49 Glucose 155 mg/dL (65-115) H 03/30/23 20:49 Calculated Osmolality 280 mOsm/kg (285-295) L 03/30/23 20:49 Lactic Acid 1.5 mmol/L (0.5-2.2) 03/30/23 20:49 Calcium 9.3 mg/dL (8.5-10.5) 03/30/23 20:49 Total Bilirubin 0.5 mg/dL (0.15-1.2) 03/30/23 20:49 AST 28 U/L (0-40) 03/30/23 20:49 ALT 27 U/L (0-41) 03/30/23 20:49 Alkaline Phosphatase 84 U/L (40-130) 03/30/23 20:49 C-Reactive Protein 76.5 mg/L (0.0-4.9) H 03/30/23 20:49 Total Protein 7.5 g/dL (6.6-8.7) 03/30/23 20:49 Albumin 3.7 g/dL (3.5-5.2) 03/30/23 20:49 Globulin 3.8 g/dL (1.3-4.6) 03/30/23 20:49 Procalcitonin 0.14 ng/mL (0-0.5) 03/30/23 20:49 Urine Color Yellow (Yellow) 03/30/23 21:09 Urine Appearance Clear (CLEAR) 03/30/23 21:09 Urine pH 5 (5-7) 03/30/23 21:09 Ur Specific [place] 1.020 (1.005-1.030) 03/30/23 21:09 Urine Protein Neg (Negative) 03/30/23 21:09 Urine Glucose (UA) Trace (Normal) H 03/30/23 21:09 Urine Ketones Negative (Negative) 03/30/23 21:09 Urine Blood Neg (Negative) 03/30/23 21:09 Urine Nitrate Negative (Negative) 03/30/23 21:09 Urine Bilirubin Neg (Negative) 03/30/23 21:09 Urine Urobilinogen 4 mg/dL (Negative) H 03/30/23 21:09 Ur Leukocyte Esterase Negative (Negative) 03/30/23 21:09 Discharge Plan Discharge Patient Disposition: Admitted As Inpatient Admit Provider: Padmini Campbell Clinical Impression: Abscess of skin or subcutaneous tissue, Cellulitis Condition: Stable Coding Level of Care Code ED [employer] Operator for Kelby Bean
[2023-03-30 20:50] VITALS: RESP 18
[2023-03-30] MEDS: morphine 4 mg/mL SDV 1 mL IVP ×2 (20:50→23:12)
[2023-03-30] MEDS: metoclopramide 5 mg/mL SDV 2 mL 10 MG IVP (20:51)
[2023-03-30] MEDS: ketorolac 30 mg/mL INJ IM (20:51)
[2023-03-30 20:58] VITALS: BP 130/90; PULSE 112; O2SAT 94
--- NOTE | 2023-03-30 20:58 | CTR_ITS ---
PROCEDURE INFORMATION: Exam: CT Pelvis With Contrast Exam date and time: 03/30/2023 9:34 PM Age: 32 years old Clinical indication: Cellulitis; Groin, acute; Additional info: Cellulitis of perineum and thigh, eval for luis fernando's gangrene vs cellulitis TECHNIQUE: Imaging protocol: Computed tomography of the pelvis with contrast. Radiation optimization: All CT scans at this facility use at least one of these dose optimization techniques: automated exposure control; mA and/or kV adjustment per patient size (includes targeted exams where dose is matched to clinical indication); or iterative reconstruction. Contrast material: OMNI 350; Contrast volume: 100 ml; Contrast route: INTRAVENOUS (IV); REPORTING DATA: Count of CT and Cardiac NM exams in prior 12 months: This patient has received [address] and 0 known cardiac nuclear medicine studies in the 12 months prior to the current study. COMPARISON: CT kidney stone [id number] 06/04/2022 1:34 AM RADIATION DOSE METRICS: Total DLP (mGy-cm): 1444.43 FINDINGS: Stomach and bowel: Visualized small bowel and colon are unremarkable. Appendix: No evidence of appendicitis. Intraperitoneal space: Unremarkable. No free air. No significant fluid collection. Lymph nodes: Prominent inguinal lymph nodes bilaterally measuring up to 14 mm, nonspecific. Urinary bladder: Normal. No mass. Reproductive: Normal as visualized. Bones/joints: Unremarkable. No acute fracture. No dislocation. Soft tissues: Left proximal thigh to perineal region subcutaneous edema with a 4.3 cm fluid collection in the proximal medial thigh suggestive of an abscess and. Negative for subcutaneous emphysema which is typically seen with Luis Fernando's gangrene. CT/CT pelvis w con* [id number] IMPRESSION: 1. Left proximal thigh to perineal region subcutaneous edema with a 4.3 cm fluid collection in the proximal medial thigh suggestive of an abscess and cellulitis. Negative for subcutaneous emphysema which is typically seen with Luis Fernando's gangrene. 2. Prominent inguinal lymph nodes bilaterally measuring up to 14 mm, nonspecific.
[2023-03-30 20:59] LABS: Basophils # 0.1 10^3/uL (0.0-0.1); Basophils % 0.4 %; Eosinophils # 0.3 10^3/uL (0.0-0.8); Eosinophils % 1.9 %; Lymphocytes # 2.9 10^3/uL (0.8-4.8); Lymphocytes % 18.9 %; Mean Corpuscular HGB Conc 32.4 g/dL (30-55); Mean Corpuscular Hemoglobin 29.1 pg (27-33); Mean Corpuscular Volume 89.8 fl (82-101); Mean Platelet Volume 10.5 fL (7.4-10.4); Monocytes # 1.4 10^3/uL (0.2-0.9); Monocytes % 8.8 %; Neutrophils % 69.7 %; Nucleated Red Blood Cells % 0 %; Platelet Count 237 10^3/cmm (157-399); Red Blood Count 5.01 10^6/uL (3.85-5.65); Red Cell Distribution Width 12.5 % (12.1-15.1); White Blood Count 15.48 10^3/uL (3.29-11.43)
[2023-03-30 21:03] LABS: Erythrocyte Sedimentation Rate 53 mm/hr (0-10)
[2023-03-30 21:11] LABS: Add Urine Microscopic? NO; Charge for UA Resulting for Rev
[2023-03-30 21:13] LABS: Blood Urine Neg (Negative); Glucose Urine UA Trace (Normal); Ketones Urine Negative (Negative); Protein Urine Neg (Negative); Urine Appearance Clear (CLEAR); Urine Color Yellow (Yellow); pH Urine 5 (5-7)
[2023-03-30 21:14] LABS: Bilirubin Urine Neg (Negative); Leukocyte Esterase Urine Negative (Negative); Nitrate Urine Negative (Negative); Urobilinogen Urine 4 mg/dL (Negative)
[2023-03-30 21:21] LABS: Alanine Aminotransferase 27 U/L (0-41); Albumin Level 3.7 g/dL (3.5-5.2); Alkaline Phosphatase 84 U/L (40-130); Anion Gap 16.3 (5-19); Aspartate Amino Transferase 28 U/L (0-40); Blood Urea Nitrogen 14 mg/dL (6-20); C Reactive Protein 76.5 mg/L (0.0-4.9); Calcium 9.3 mg/dL (8.5-10.5); Carbon Dioxide 23 mmol/L (22-29); Chloride 98 mmol/L (98-107); Globulin 3.8 g/dL (1.3-4.6); Glomerular Filtration Rate 97.8 mL/min (90-130); Glucose 155 mg/dL (65-115); Osmolality Calculated 280 mOsm/kg (285-295); Potassium 4.3 mmol/L (3.5-5.1); Sodium 133 mmol/L (136-145); Total Bilirubin 0.5 mg/dL (0.15-1.2); Total Protein 7.5 g/dL (6.6-8.7)
[2023-03-30 21:22] LABS: Lactic Sepsis W/Reflex 1.5 mmol/L (0.5-2.2)
[2023-03-30 21:28] LABS: Procalcitonin 0.14 ng/mL (0-0.5)
[2023-03-30 22:00] VITALS: BP 141/72; PULSE 109; O2SAT 95
--- NOTE | 2023-03-30 22:27 | USR_ITS ---
PROCEDURE INFORMATION: Exam: US Duplex Left Lower Extremity Veins, Limited Exam date and time: 03/30/2023 10:48 PM Age: 32 years old Clinical indication: Other: Localized sweeling/redness; Additional info: Leg swelling, per hospitalist request TECHNIQUE: Imaging protocol: Real-time duplex ultrasound of the left extremity with 2-D muñiz scale, color Doppler flow and spectral waveform analysis including responses to compression and other maneuvers (when performed) with image documentation. Limited exam focused on the left lower extremity veins. COMPARISON: CT pelvis w con* [id number] 03/30/2023 9:34 PM FINDINGS: Left deep veins: Unremarkable. The common femoral, femoral, proximal profunda femoral and popliteal veins are patent without thrombus. Normal Doppler waveforms. Normal compressibility and/or augmentation response. Superficial veins: Unremarkable. Saphenofemoral junction is patent without thrombus. Soft tissues: Unremarkable. US/CV venous duplex [facility] [id number] IMPRESSION: No evidence of deep vein thrombosis.
[2023-03-30 23:12] VITALS: RESP 22; O2SAT 97
[2023-03-30 23:25] VITALS: BP 136/74; PULSE 104; O2SAT 96
[2023-03-31] VITALS (21 sets, daily range): BP systolic 114–148; BP diastolic 68–102; PULSE 91–109; RESP 14–21; TEMP 36.7–37.1; O2SAT 93–99
--- NOTE | 2023-03-31 00:29 | PM.HP ---
Providers/Chief Complaint Admitting Physician: Padmini Campbell MD Primary Care Provider: Anmol Tolliver Chief Complaint: Left Inter Thigh History of Present Illness Nixon Cook is a 32 year old male with history of depression obesity hypertension low back pain presented with complaint of swelling and redness to the inner thigh on the left side since 3 to 4 days. He was started on Bactrim p.o. 3 days ago by his PCP for skin infection. He reports he started seeing a red patch on the left inner thigh 2 days ago which with started getting worse and was associated with severe pain. Denies any fever nausea vomiting urinary or bowel complaints. Denies any drug abuse or alcoholism. No history of injury or insect bite. Review of Systems Narrative: As per HPI Medications/Allergies Home Medications Medication Instructions Recorded Confirmed Last Taken Type lisinopril 20 mg tablet 20 mg PO DAILY #90 tabs 09/05/22 03/29/23 Unknown Rx sertraline 50 mg tablet 50 mg PO DAILY #90 tabs 09/09/22 03/29/23 Unknown Rx cyclobenzaprine 5 mg tablet 5 mg PO TID PRN muscle spasm #60 03/29/23 03/29/23 Unknown Rx tabs gabapentin 300 mg capsule 300 mg PO BID #60 caps 03/29/23 03/29/23 Unknown Rx sulfamethoxazole 800 1 tab PO Q12H #20 tabs 03/29/23 03/29/23 Unknown Rx mg-trimethoprim 160 mg tablet (Bactrim DS) triamcinolone acetonide 0.1 % 1 applic topical BID to foot #80 03/29/23 03/29/23 Unknown Rx topical cream grams Allergies Allergy/AdvReac Type Severity Reaction Status Date / Time No Known Allergies Allergy Verified 03/29/23 11:42 PFSH Acute PFSH: Medical History HTN (hypertension) Major depression Obesity Prediabetes Radiculopathy, lumbar region Right ureteral stone Surgical History S/P ureteral stent placement Family History Mother No problems noted. Father Hypertension Other Cancer Diabetes Social History Smoking and tobacco status: current some day smoker Alcohol intake: never Marital status: Current occupational status: employed Vitals/I&O/Wt Last Vital Signs Temp 98.5 F 03/31/23 00:00 Pulse 93 03/31/23 00:00 Resp 18 03/31/23 00:00 BP 126/84 03/31/23 00:00 Pulse Ox 95 03/31/23 00:00 O2 Del Method Room Air 03/31/23 00:00 Weight last 48 hrs Weight 176.901 kg Physical Exam Narrative: He is alert awake oriented x3, morbidly obese Chest is clear to auscultation bilaterally Cardiovascular normal heart sounds Abdomen soft nontender nondistended normal bowel sounds Extremities no pedal edema seen Skin left inner thigh swelling erythema warmth induration and mild tenderness present extending to the left scrotal area and groin. Data 03/30/23 20:49 03/30/23 20:49 Micro: Microbiology 03/30/23 20:49 Blood Culture - Preliminary Blood SPECIMEN COLLECTED 03/30/23 20:49 Blood Culture - Preliminary Blood SPECIMEN COLLECTED US Vascular: Radiologist's impression: IMPRESSION: No evidence of deep vein thrombosis. ? CT Abd/Pel: Radiologist's impression: IMPRESSION: 1. ? Left proximal thigh to perineal region subcutaneous edema with a 4.3 cm fluid collection in the proximal medial thigh suggestive of an abscess and cellulitis. Negative for subcutaneous emphysema which is typically seen with Megan's gangrene. 2. ? Prominent inguinal lymph nodes bilaterally measuring up to 14 mm, nonspecific. A&P Assessment and plan (1) Abscess of skin or subcutaneous tissue: (2) Cellulitis: Plan Left inner thigh swelling erythema induration warmth and tenderness likely secondary to cellulitis, and found to have 4 cm of proximal medial thigh abscess on CT pelvis, leukocytosis 15.4 and normal lactic acid. Will give Unasyn 1.5 g every 6 hours IV MetroGyl 500 mg every 8 hours IV Dilaudid 2 mg every 6 hours as needed for pain Resume home medications Regular diet DVT prophylaxis with subcutaneous heparin. Patient is full code Attestations Medical Necessity Statement*: He needs more than 2 days of hospitalization for IV antibiotics, since cellulitis nonresponsive to outpatient oral therapy Time Spent in Patient Care: 30 minutes Coding Level of Care Code Acute Code for Chg Fwd Diagnoses Abscess of skin or subcutaneous tissue L02.91 Cellulitis L03.90 Time Spent (min) 30
[2023-03-31] MEDS: nicotine 21 mg Patch 1 PATCH TRANSDERMA ×2 (00:52→13:52)
[2023-03-31] MEDS: ampicillin-sulbactam 1.5 GM in sodium chloride 0.9% (plus) 50 ML IV ×2 (00:52→05:34)
[2023-03-31] MEDS: enoxaparin 40 mg/0.4 mL Syringe SUBCUT (01:04)
[2023-03-31] MEDS: cyclobenzaprine 10 mg Tablet 5 MG PO (01:07)
[2023-03-31] MEDS: pantoprazole 40 mg SDV IVP (01:12)
[2023-03-31] MEDS: metroNIDAZOLE IV 500 MG/100 ML PREMIX 100 MG IV (01:21)
[2023-03-31] MEDS: ketorolac 10 mg Tablet PO (05:54)
--- NOTE | 2023-03-31 09:28 | PM.CONSULT ---
Providers/Reason For Consult Consulting Physician/Specialty*: Dr. Robin Hardy, DO/General surgery Reason for Consult*: Incision and drainage of left thigh abscess Attending Physician: Xavi Cherry MD Primary Care Provider: Anmol Tolliver History of Present Illness History of Present Illness Nixon Cook is a 32 year old male who presented to the hospital with a 3 to 4-day history of pain redness and swelling in his medial left thigh. He was put on Bactrim by his PCP and the symptoms continue to get worse. He has intense sharp pain at the area that does not radiate. Palpation makes pain worse. Nothing makes pain better. This area has not drained. Review of Systems General: Reports: 10 or more systems reviewed and unremarkable except in HPI and below Medications/Allergies Home Medications Medication Instructions Recorded Confirmed Last Taken Type lisinopril 20 mg tablet 20 mg PO DAILY #90 tabs 09/05/22 03/31/23 Unknown Rx sertraline 50 mg tablet 50 mg PO DAILY #90 tabs 09/09/22 03/31/23 Unknown Rx cyclobenzaprine 5 mg tablet 5 mg PO TID PRN muscle spasm #60 03/29/23 03/31/23 Unknown Rx tabs gabapentin 300 mg capsule 300 mg PO BID #60 caps 03/29/23 03/31/23 Unknown Rx sulfamethoxazole 800 1 tab PO Q12H #20 tabs 03/29/23 03/31/23 Unknown Rx mg-trimethoprim 160 mg tablet (Bactrim DS) triamcinolone acetonide 0.1 % 1 applic topical BID to foot #80 03/29/23 03/31/23 Unknown Rx topical cream grams Allergies Allergy/AdvReac Type Severity Reaction Status Date / Time No Known Allergies Allergy Verified 03/29/23 11:42 Current Medications Generic Name Dose Route Start Last Admin Trade Name Freq PRN Reason Stop Dose Admin Cyclobenzaprine HCl 5 mg 03/31/23 00:49 03/31/23 01:07 Cyclobenzaprine 10 Mg Tablet PO 5 mg TID PRN Administration muscle spasm Enoxaparin Sodium 40 mg 03/31/23 01:00 03/31/23 01:04 Enoxaparin 40 Mg/0.4 Ml Syringe SUBCUT 40 mg Q24H KAYLEE Administration Ketorolac Tromethamine 10 mg 03/31/23 00:44 03/31/23 05:54 Ketorolac 10 Mg Tablet PO 04/05/23 00:43 10 mg Q6H PRN Administration MODERATE PAIN Nicotine 1 patch 03/30/23 23:45 03/31/23 00:52 Nicotine 21 Mg Patch TRANSDERMA 1 patch DAILY KAYLEE Administration Pantoprazole Sodium 40 mg 03/31/23 00:45 03/31/23 01:12 Pantoprazole 40 Mg Sdv IVP 40 mg Q24H KAYLEE Administration PFSH Acute PFSH: Medical History HTN (hypertension) Major depression Obesity Prediabetes Radiculopathy, lumbar region Right ureteral stone Surgical History S/P ureteral stent placement Family History Mother No problems noted. Father Hypertension Other Cancer Diabetes Social History Smoking and tobacco status: current some day smoker Alcohol intake: never Marital status: Current occupational status: employed Vitals/I&O/Wt Last Vital Signs Temp 98.0 F 03/31/23 09:10 Pulse 91 03/31/23 09:10 Resp 17 03/31/23 09:10 BP 114/72 03/31/23 09:10 Pulse Ox 96 03/31/23 09:10 O2 Del Method Room Air 03/31/23 09:10 03/30/23 03/31/23 03/31/23 22:59 06:59 14:59 Intake Total 200 / 200 Output Total 300 / 300 Balance 200 / 200 -300 / -300 Weight last 48 hrs Weight 390 lb Physical Exam Narrative: General : Patient is well developed , no acute distress, oriented x3 Head : Normal cephalic, a-traumatic. Ears : Pinnae and external canal are normal. Hearing is normal. Eyes : PERRLA, Sclera and injection are normal. No conjunctival discharge. Nose : Mucous membranes are without erythema. Throat : buccal mucosa is normal, gums are without significant recession or hypertrophy. Lungs : Equal chest rise bilaterally, no use of accessory muscles, trachea is midline. Cor : Rate and rhythm are normal. Abdomen : Soft, ND, NT, no g/r/m Extremities : No edema, no cyanosis or clubbing, dorsalis pedis pulses are present bilaterally, non-tender to palpation of calves. Upper extremities are normal bilaterally. Back : non-tender to palpation, no CVA tenderness. Neuro : CN II - XII intact, Upper and lower extremities have equal and full strength Data 03/30/23 20:49 03/30/23 20:49 Micro: Microbiology 03/30/23 20:49 Blood Culture - Preliminary Blood SPECIMEN COLLECTED 03/30/23 20:49 Blood Culture - Preliminary Blood SPECIMEN COLLECTED A&P Assessment and plan (1) Abscess of skin or subcutaneous tissue: Plan Incision and drainage of left thigh abscess The risks and benefits of the procedure, including but not limited to, bleeding, infection, recurrence, scar, numbness, pain, damage to surrounding structures, were explained to the patient. They are understanding of the risks and wish to proceed. Coding Level of Care Code 32083 Diagnoses Abscess of skin or subcutaneous tissue L02.91
[2023-03-31] MEDS: vancomycin 2,000 MG/400 ML PIGGYBACK 200 MG IV ×2 (09:45→20:36)
--- NOTE | 2023-03-31 10:03 | ANES.PREANE2 ---
Pre-Anesthetic Assessment Height/Weight: Height 1.91 m Weight 176.901 kg Temp Pulse Resp BP Pulse Ox O2 Del Method 98.0 F 91 17 114/72 96 Room Air 03/31/23 09:10 03/31/23 09:10 03/31/23 09:10 03/31/23 09:10 03/31/23 09:10 03/31/23 09:10 Operation Date: 03/31/23 10:00 Proposed Procedures p I&D left thigh abscess(Left) - Robin Hardy DO Familial anesthetic complications: None Was Beta Teddy taken within 24 hours: N/A Was Clonidine taken within 24 hours: N/A Last intake: > 8 hrs Social Tobacco and No alcohol Exam alert, oriented x 3, clear to auscultation bilaterally and regular rate & rhythm Airway Mallampati: Class IV Dentition: full Comments: Comments: large tongue and turner and large neck circumference CV/HEM Hypertension Metabolic Diabetes Mellitus (pre-DM) and Morbid Obesity Anesthetic Plan ASA status: 3 Anesthesia: General Risk of > 500 ml blood loss (7ml/kg in children): No Medications/Allergies Home Medications Medication Instructions Recorded Confirmed Last Taken Type lisinopril 20 mg tablet 20 mg PO DAILY #90 tabs 09/05/22 03/31/23 Unknown Rx sertraline 50 mg tablet 50 mg PO DAILY #90 tabs 09/09/22 03/31/23 Unknown Rx cyclobenzaprine 5 mg tablet 5 mg PO TID PRN muscle spasm #60 03/29/23 03/31/23 Unknown Rx tabs gabapentin 300 mg capsule 300 mg PO BID #60 caps 03/29/23 03/31/23 Unknown Rx sulfamethoxazole 800 1 tab PO Q12H #20 tabs 03/29/23 03/31/23 Unknown Rx mg-trimethoprim 160 mg tablet (Bactrim DS) triamcinolone acetonide 0.1 % 1 applic topical BID to foot #80 03/29/23 03/31/23 Unknown Rx topical cream grams Allergies Allergy/AdvReac Type Severity Reaction Status Date / Time No Known Allergies Allergy Verified 03/29/23 11:42 Current Medications Generic Name Dose Route Start Last Admin Trade Name Freq PRN Reason Stop Dose Admin Cyclobenzaprine HCl 5 mg 03/31/23 00:49 03/31/23 01:07 Cyclobenzaprine 10 Mg Tablet PO 5 mg TID PRN Administration muscle spasm Enoxaparin Sodium 40 mg 03/31/23 01:00 03/31/23 01:04 Enoxaparin 40 Mg/0.4 Ml Syringe SUBCUT 40 mg Q24H KAYLEE Administration Vancomycin/PEG/NADA/Lysine/Water 2,000 mg in 400 mls @ 200 mls/hr 03/31/23 09:00 03/31/23 09:45 Vancocin IV 200 mls/hr Q12H KAYLEE Administration Ketorolac Tromethamine 10 mg 03/31/23 00:44 03/31/23 05:54 Ketorolac 10 Mg Tablet PO 04/05/23 00:43 10 mg Q6H PRN Administration MODERATE PAIN Nicotine 1 patch 03/30/23 23:45 03/31/23 00:52 Nicotine 21 Mg Patch TRANSDERMA 1 patch DAILY KAYLEE Administration Pantoprazole Sodium 40 mg 03/31/23 00:45 03/31/23 01:12 Pantoprazole 40 Mg Sdv IVP 40 mg Q24H KAYLEE Administration PFSH Anesthesia Medical History HTN (hypertension) Major depression Obesity Prediabetes Radiculopathy, lumbar region Right ureteral stone Surgical History S/P ureteral stent placement Family History Mother No problems noted. Father Hypertension Other Cancer Diabetes Social History Smoking and tobacco status: current some day smoker Alcohol intake: never Marital status: Current occupational status: employed Data Anesthesia 03/30/23 20:49 03/30/23 20:49 Short CBC 03/30/23 Range/Units 20:49 WBC 15.48 H (3.29-11.43) 10^3/uL Hgb 14.60 (11.27-16.99) g/dL Hct 45.0 (37-53) % MCV 89.8 (82-101) fl Plt Count 237 (157-399) 10^3/cmm Neut % (Auto) 69.7 % Neut # (Auto) 10.80 H (1.8-7.7) 10^3/uL BMP 03/30/23 20:49 Sodium 133 L Potassium 4.3 Chloride 98 Carbon Dioxide 23 BUN 14 Creatinine 0.9 Glucose 155 H Calcium 9.3 Liver Function 03/30/23 Range/Units 20:49 Total Bilirubin 0.5 (0.15-1.2) mg/dL AST 28 (0-40) U/L ALT 27 (0-41) U/L Alkaline Phosphatase 84 (40-130) U/L Albumin 3.7 (3.5-5.2) g/dL Urine 03/30/23 Range/Units 21:09 Urine Color Yellow (Yellow) Urine Appearance Clear (CLEAR) Urine pH 5 (5-7) Ur Specific [place] 1.020 (1.005-1.030) Urine Protein Neg (Negative) Urine Glucose (UA) Trace H (Normal) Urine Ketones Negative (Negative) Urine Nitrate Negative (Negative) Urine Bilirubin Neg (Negative) Ur Leukocyte Esterase Negative (Negative) Coags 03/30/23 03/30/23 20:49 20:49 ESR 53 H C-Reactive Protein 76.5 H Microbiology 03/30/23 20:49 Blood Culture - Preliminary Blood SPECIMEN COLLECTED 03/30/23 20:49 Blood Culture - Preliminary Blood SPECIMEN COLLECTED Cardiac Studies: No Data to Display
[2023-03-31] MEDS: sodium chloride 0.9% 1,000 ML 30 ML IV (10:13)
--- NOTE | 2023-03-31 10:44 | PM.MISC ---
Miscellaneous Note Note: H&P reviewed I have consulted general surgery for abscess I&D, patient has not eaten we will make him n.p.o. he is going for I&D around [address] Hardy notified and consulted I have changed antibiotics to vancomycin and Zosyn Patient is laying supine at the bedside Left thigh area is indurated, hyperemic with purulent drainage No crepitation Tender to touch Inguinal lymphadenopathy Patient seems anxious, as per the he wants to smoke I have asked nurse to start 21 mg of nicotine patch Start vancomycin and Zosyn N.p.o. I&D as per general surgery Patient is prediabetic we will check A1c level No active signs of sepsis
[2023-03-31] MEDS: lidocaine-epi 2% 20 mL INJ INJECTION (10:58)
--- NOTE | 2023-03-31 11:07 | P.OP_ITS ---
Operative Report Date of procedure: March 31, 2023 Pre-op diagnosis: Left medial thigh abscess Post-op diagnosis: same Procedure done: Incision and drainage of left medial thigh abscess Implants: Half-inch iodoform packing gauze Specimens removed/disposition: Cultures Surgeon: Robin Hardy DO Anesthesia: General Estimated blood loss (mL): 20 Complications: None apparent Brief History: This very pleasant 32-year-old gentleman with a left medial thigh abscess. Incision and drainage is indicated. The risk benefits were explained and documented. Procedure: Patient was wheeled in operative room and remained on the hospital bed in the supine position. General endotracheal ovation was achieved by department of anesthesia. A timeout was performed. All present were in agreement. The left medial thigh was inspected prepped and draped in usual sterile fashion. 2% lidocaine with epinephrine was used to anesthetize the area over the abscess. A 10 blade scalpel was then used to make a 1.5 cm incision over the abscess. Hemostats were used to probe the abscess cavity. A moderate amount of purulence was expelled. Cultures were obtained. I then finger fact the rest of the abscess cavity is getting out more purulence. The abscess cavity was then i rrigated and suctioned. Half-inch iodoform packing gauze was packed into the abscess cavity. Sterile bandage was applied. Patient tolerated procedure well.
--- NOTE | 2023-03-31 11:54 | ANE.PACU2 ---
Inpatient post-anesthesia follow up: Airway intact: Yes Vital signs: Temperature 98.8 F Pulse Rate 103 Respiratory Rate 14 Blood Pressure 121/87 Pulse Oximetry 95 Oxygen Delivery Me thod Room Air Oxygen Flow Rate Fraction of Inspir ed Oxygen Hydration adequate: Yes Nausea and vomiting: No Pain level: 1 Mental status: Baseline
[2023-03-31] MEDS: HYDROmorphone 1 mg/mL INJ 1 mL IVP ×3 (13:43→20:36)
[2023-03-31] MEDS: piperacillin-tazobactam 3.375 GM in sodium chloride 0.9% (plus) 50 ML IV ×2 (13:51→23:09)
[2023-03-31] MEDS: gabapentin 300 mg Capsule PO ×2 (14:36→17:23)
[2023-03-31] MEDS: lisinopril 20 mg Tablet PO (14:36)
[2023-03-31] MEDS: HYDROcodone-acetaminophen 10-325 mg Tablet 1 TAB PO ×2 (15:49→22:03)
[2023-03-31 16:40] LABS: Glucose Point of Care 258 mg/dL (70-110)
[2023-04-01] VITALS: BP 103/62; PULSE 78; RESP 18; TEMP 36.3; O2SAT 96
[2023-04-01] MEDS: pantoprazole 40 mg SDV IVP (00:27)
[2023-04-01] MEDS: enoxaparin 40 mg/0.4 mL Syringe SUBCUT (00:27)
[2023-04-01 00:33] VITALS: RESP 16
[2023-04-01] MEDS: HYDROmorphone 1 mg/mL INJ 1 mL IVP ×2 (00:33→10:19)
[2023-04-01 03:38] VITALS: BP 113/74; PULSE 69; RESP 17; O2SAT 97
[2023-04-01] MEDS: HYDROcodone-acetaminophen 10-325 mg Tablet 1 TAB PO ×2 (04:49→10:09)
[2023-04-01] MEDS: piperacillin-tazobactam 3.375 GM in sodium chloride 0.9% (plus) 50 ML IV (05:50)
[2023-04-01 05:54] LABS: Basophils % 0.3 %; Eosinophils % 0.2 %; Hematocrit 41.8 % (37-53); Lymphocytes # 1.7 10^3/uL (0.8-4.8); Lymphocytes % 10.7 %; Mean Corpuscular HGB Conc 32.1 g/dL (30-55); Mean Corpuscular Hemoglobin 29.1 pg (27-33); Mean Corpuscular Volume 90.9 fl (82-101); Mean Platelet Volume 10.3 fL (7.4-10.4); Monocytes # 0.8 10^3/uL (0.2-0.9); Monocytes % 5.3 %; Neutrophils # 12.99 10^3/uL (1.8-7.7); Neutrophils % 83.1 %; Nucleated Red Blood Cells % 0 %; Platelet Count 240 10^3/cmm (157-399); Red Cell Distribution Width 12.6 % (12.1-15.1); White Blood Count 15.63 10^3/uL (3.29-11.43)
[2023-04-01 06:19] LABS: Estmated Average Glucose 166; Hemoglobin A1C 7.4 % (4.0-6.0)
[2023-04-01 06:26] LABS: Alanine Aminotransferase 26 U/L (0-41); Albumin Level 3.5 g/dL (3.5-5.2); Alkaline Phosphatase 74 U/L (40-130); Aspartate Amino Transferase 23 U/L (0-40); Blood Urea Nitrogen 20 mg/dL (6-20); Calcium 8.7 mg/dL (8.5-10.5); Carbon Dioxide 23 mmol/L (22-29); Chloride 97 mmol/L (98-107); Globulin 3.6 g/dL (1.3-4.6); Glomerular Filtration Rate 97.8 mL/min (90-130); Glucose 274 mg/dL (65-115); Osmolality Calculated 280 mOsm/kg (285-295); Sodium 129 mmol/L (136-145); Total Bilirubin 0.3 mg/dL (0.15-1.2); Total Protein 7.1 g/dL (6.6-8.7)
[2023-04-01 07:54] VITALS: BP 101/64; PULSE 87; RESP 18; TEMP 36.4; O2SAT 99
[2023-04-01] MEDS: nicotine 21 mg Patch 1 PATCH TRANSDERMA (08:05)
[2023-04-01] MEDS: lisinopril 20 mg Tablet PO (08:05)
[2023-04-01] MEDS: gabapentin 300 mg Capsule PO (08:05)
[2023-04-01] MEDS: vancomycin 2,000 MG/400 ML PIGGYBACK 200 MG IV (10:04)
--- NOTE | 2023-04-01 10:51 | PM.PN ---
Subjective Subjective: Patient seen and examined. Pain controlled. No new complaints. Vitals/I&O/Wt Last Vital Signs Temp 97.5 F L 04/01/23 07:54 Pulse 87 04/01/23 07:54 Resp 18 04/01/23 07:54 BP 101/64 04/01/23 07:54 Pulse Ox 99 04/01/23 07:54 O2 Del Method Room Air 04/01/23 07:54 03/31/23 04/01/23 04/01/23 22:59 06:59 14:59 Intake Total 1190 / 1830 450 / 2280 50 / 50 Output Total 500 / 1295 Balance 1190 / 1035 -50 / 985 50 / 50 Weight last 48 hrs Weight 390 lb Physical Exam Narrative: General: No acute distress, awake alert and oriented x3 Skin: Decreased induration with minimal to no erythema or exudate Data 04/01/23 05:27 04/01/23 05:27 Micro: Microbiology 03/31/23 11:05 Gram Stain - Final Thigh - Left Anaerobic Culture - Preliminary 03/30/23 20:49 Blood Culture - Preliminary Blood NEGATIVE TO DATE 03/30/23 20:49 Blood Culture - Preliminary Blood NEGATIVE TO DATE 03/31/23 11:05 Gram Stain - Final Thigh - Left A&P Assessment and plan (1) Abscess of skin or subcutaneous tissue: Plan Status post incision and drainage Packing and dressing change today Surgically stable for discharge Recommend a 7 to 10-day course of antibiotics upon discharge Daily dressing changes with half-inch plain packing gauze Follow-up in my office in 2 weeks Shower daily but do not soak incisions underwater until healed Attestations Medical Necessity Statement*: Per primary Coding Level of Care Code 73392 Diagnoses Abscess of skin or subcutaneous tissue L02.91
[2023-04-01] MEDS: magnesium citrate Btl 296 mL PO (11:20)
[2023-04-01 11:32] VITALS: BP 123/61; PULSE 81; RESP 18; TEMP 36.5; O2SAT 96
--- NOTE | 2023-04-01 12:13 | PC.SOCIAL ---
Per rounds with Dr. Cherry, patient can discharge today with no needs from . He states that floor can send packing supplies until follow up with Antony.
--- NOTE | 2023-04-01 12:20 | P.DS_ITS ---
Discharge Providers Date of Admission: 03/30/23 22:43 Date of Discharge: April 01, 2023 Attending Provider at Admission: Padmini Campbell MD Attending Provider at Discharge: Xavi Cherry MD Primary Care Provider: Anmol Tolliver Diagnoses at Discharge Discharge Diagnosis (1) Abscess of skin or subcutaneous tissue: Status: Acute Reason for Visit Reason for Visit: Left Inter Thigh Hospital Course Hospital Course 32-year-old male with diabetes, presented to the hospital for left thigh redness and pain, there was about 4 cm abscess for which Dr. 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 Hardy, for wound packing he will get the supplies at the time of discharge, His hemoglobin A1c is 7.4 Glucose 258 he has been diagnosed with new onset of type 2 diabetes he was prediabetic I will add metformin 500 mg twice daily regimen I did sexual abuse counsellor the patient that his wound healing might be delayed because of his diabetes At the time of discharge she will receive Augmentin 7-day course along clindamycin Patient already has a referral to follow-up with airborne weapons technical manager in [place] Physical Exam Narrative: Awake and alert Left eye with wound packing Awake and alert Morbidly obese Currently on room air Has a nicotine patch Pleasant and cooperative at the bedside Discharge Data Studies Completed and Pending Completed Studies During Hospitalization Category Date Time Status CT pelvis w con* [id number] Stat Cat Scan 03/30/23 20:58 Completed US venous duplex lower extremity LT [CV venous duplex Ultrasound 03/30/23 22:27 [place] [id number]] Stat Pending at discharge Category Date Time Status Anaerobic Culture Routine Lab 03/31/23 11:05 Results Blood Culture Stat Lab 03/30/23 20:49 Results Tissue Culture and Gram Stain Routine Lab 03/31/23 11:05 Results Vancomycin Trough Timed Lab 04/01/23 20:00 Ordered Wound Culture and Gram Stain Routine Lab 03/31/23 11:05 Results Radiology Impressions Pelvis CT 03/30/23 20:58 IMPRESSION: 1. Left proximal thigh to perineal region subcutaneous edema with a 4.3 cm fluid collection in the proximal medial thigh suggestive of an abscess and cellulitis. Negative for subcutaneous emphysema which is typically seen with Megan's gangrene. 2. Prominent inguinal lymph nodes bilaterally measuring up to 14 mm, nonspecific. Venous Duplex 03/30/23 22:27 IMPRESSION: No evidence of deep vein thrombosis. Laboratory Results WBC 15.63 10^3/uL (3.29-11.43) H 04/01/23 05:27 RBC 4.60 10^6/uL (3.85-5.65) 04/01/23 05:27 Hgb 13.40 g/dL (11.27-16.99) 04/01/23 05:27 Hct 41.8 % (37-53) 04/01/23 05:27 MCV 90.9 fl (82-101) 04/01/23 05:27 MCH 29.1 pg (27-33) 04/01/23 05:27 MCHC 32.1 g/dL (30-55) 04/01/23 05:27 RDW 12.6 % (12.1-15.1) 04/01/23 05:27 Plt Count 240 10^3/cmm (157-399) 04/01/23 05:27 MPV 10.3 fL (7.4-10.4) 04/01/23 05:27 Neut % (Auto) 83.1 % 04/01/23 05:27 Lymph % (Auto) 10.7 % 04/01/23 05:27 [place] % (Auto) 5.3 % 04/01/23 05:27 Eos % (Auto) 0.2 % 04/01/23 05:27 Baso % (Auto) 0.3 % 04/01/23 05:27 Neut # (Auto) 12.99 10^3/uL (1.8-7.7) H 04/01/23 05:27 Lymph # (Auto) 1.7 10^3/uL (0.8-4.8) 04/01/23 05:27 [place]ickson # (Auto) 0.8 10^3/uL (0.2-0.9) 04/01/23 05:27 Eos # (Auto) 0.0 10^3/uL (0.0-0.8) 04/01/23 05:27 Baso # (Auto) 0.0 10^3/uL (0.0-0.1) 04/01/23 05:27 Nucleated RBC % (auto) 0 % 04/01/23 05:27 Nucleated RBCs # 0.0 /100WBC 04/01/23 05:27 ESR 53 mm/hr (0-10) H 03/30/23 20:49 Sodium 129 mmol/L (136-145) L 04/01/23 05:27 Potassium 5.0 mmol/L (3.5-5.1) 04/01/23 05:27 Chloride 97 mmol/L (98-107) L 04/01/23 05:27 Carbon Dioxide 23 mmol/L (22-29) 04/01/23 05:27 Anion Gap 14.0 (5-19) 04/01/23 05:27 BUN 20 mg/dL (6-20) 04/01/23 05:27 Creatinine 0.9 mg/dL (0.7-1.2) 04/01/23 05:27 GFR Calculation 97.8 mL/min (90-130) 04/01/23 05:27 Glucose 274 mg/dL (65-115) H 04/01/23 05:27 POC Glucose 258 mg/dL (70-110) H 03/31/23 16:35 Estimat Average Glucose 166 04/01/23 05:27 Hemoglobin A1c 7.4 % (4.0-6.0) H 04/01/23 05:27 Calculated Osmolality 280 mOsm/kg (285-295) L 04/01/23 05:27 Lactic Acid 1.5 mmol/L (0.5-2.2) 03/30/23 20:49 Calcium 8.7 mg/dL (8.5-10.5) 04/01/23 05:27 Total Bilirubin 0.3 mg/dL (0.15-1.2) 04/01/23 05:27 AST 23 U/L (0-40) 04/01/23 05:27 ALT 26 U/L (0-41) 04/01/23 05:27 Alkaline Phosphatase 74 U/L (40-130) 04/01/23 05:27 C-Reactive Protein 76.5 mg/L (0.0-4.9) H 03/30/23 20:49 Total Protein 7.1 g/dL (6.6-8.7) 04/01/23 05:27 Albumin 3.5 g/dL (3.5-5.2) 04/01/23 05:27 Globulin 3.6 g/dL (1.3-4.6) 04/01/23 05:27 Procalcitonin 0.14 ng/mL (0-0.5) 03/30/23 20:49 Urine Color Yellow (Yellow) 03/30/23 21:09 Urine Appearance Clear (CLEAR) 03/30/23 21:09 Urine pH 5 (5-7) 03/30/23 21:09 Ur Specific [place] 1.020 (1.005-1.030) 03/30/23 21:09 Urine Protein Neg (Negative) 03/30/23 21:09 Urine Glucose (UA) Trace (Normal) H 03/30/23 21:09 Urine Ketones Negative (Negative) 03/30/23 21:09 Urine Blood Neg (Negative) 03/30/23 21:09 Urine Nitrate Negative (Negative) 03/30/23 21:09 Urine Bilirubin Neg (Negative) 03/30/23 21:09 Urine Urobilinogen 4 mg/dL (Negative) H 03/30/23 21:09 Ur Leukocyte Esterase Negative (Negative) 03/30/23 21:09 Vitals Last Vital Signs Temp 97.7 F 04/01/23 11:32 Pulse 81 04/01/23 11:32 Resp 18 04/01/23 11:32 BP 123/61 04/01/23 11:32 Pulse Ox 96 04/01/23 11:32 O2 Del Method Room Air 04/01/23 11:32 Discharge Plan Discharge Patient Disposition: Home Condition: Stable Prescriptions: New oxycodone-acetaminophen 5-325 mg tablet 1 tab PO Q8H PRN (Reason: pain) Qty: 25 0RF amoxicillin-pot clavulanate 875-125 mg tablet 1 tab PO BID 10 Days Qty: 20 0RF metformin 500 mg tablet 500 mg PO BID Qty: 120 3RF sennosides-docusate sodium [Senna-Time S] 8.6-50 mg tablet 1 tab-cap PO DAILY Qty: 30 0RF clindamycin HCl [Cleocin HCl] 300 mg capsule 300 mg PO Q6H 10 Days Qty: 40 0RF Continued sertraline 50 mg tablet 50 mg PO DAILY Qty: 90 3RF gabapentin 300 mg capsule 300 mg PO BID Qty: 60 0RF cyclobenzaprine 5 mg tablet 5 mg PO TID PRN (Reason: muscle spasm) Qty: 60 0RF lisinopril 20 mg tablet 20 mg PO DAILY Qty: 90 3RF Discontinued triamcinolone acetonide 0.1 % cream 1 applic topical BID Qty: 80 0RF sulfamethoxazole-trimethoprim [Bactrim DS] 800-160 mg tablet 1 tab PO Q12H Qty: 20 0RF Discharge Orders: Discharge Order (Routine); Ordered 04/01/23 Ordered By: Xavi Cherry Referrals: Robin Hardy DO [Physician] - 2 weeks Anmol Tolliver NP [Primary Care Provider] - 4-7 days Patient Instructions: Opioid Safety Discharge Attestations Time Spent in Discharge Care*: greater than 30 min Quality Metrics Clinical Quality Measures [ No reported AMI, CVA or VTE this stay] Coding Level of Care Code Acute Code for Chg Fwd Diagnoses Abscess of skin or subcutaneous tissue L02.91
[2023-04-01 14:16] VITALS: BP 123/61; PULSE 81; RESP 18; TEMP 36.5; O2SAT 96
== END 2023-04-01 14:18 | disposition home or self-care (01) | DRG 603 ==
LOC: ER 22:37 → MEDSURG 23:02
PROVIDERS: Surgery; Admitting Provider Internal Medicine; Emergency Provider Physician Assistant; PCP Clinical Nurse Specialist Adult Health; Visit Provider Internal Medicine
PROC: 0J9M0ZZ Drainage of Left Upper Leg Subcutaneous Tissue and Fascia, Open Approach (ICD-10-PCS; principal; 2023-03-31 10:00)
DX: L02.416 Cutaneous abscess of left lower limb (principal); Z68.42 Body mass index [BMI] 45.0-49.9, adult; L03.116 Cellulitis of left lower limb; E66.01 Morbid (severe) obesity due to excess calories; F32.9 Major depressive disorder, single episode, unspecified; I10 Essential (primary) hypertension; R73.03 Prediabetes; M54.16 Radiculopathy, lumbar region; F17.200 Nicotine dependence, unspecified, uncomplicated
CPT/HCPCS: 36415; 36416; 72193; 80053; 81003; 82962; 83036; 83605; 84145; 85025; 85651; 86140; 87040; 87070; 87075; 87176; 87205; 93971; 96372; 96374; 96375; 96376; 99285; C9113; J0295; J1100; J1170; J1650; J1885; J2270; J2405; J2543; J2704; J2765; J3010; J3372; J3490; J7030

== ENCOUNTER → 2023-05-22 10:47 | Outpatient (BNVA) | payer BC, SELFPAY | PROVIDERS: PCP Clinical Nurse Specialist Adult Health; Visit Provider Clinical Nurse Specialist Adult Health | DX: E11.9 Type 2 diabetes mellitus without complications (principal); M51.36 Other intervertebral disc degeneration, lumbar region; M54.16 Radiculopathy, lumbar region | CPT/HCPCS: 80053; 83036; 85025 ==

== ENCOUNTER 2023-11-05 13:38 | Day surgery (SDC) | payer BC, SELFPAY ==
[2023-11-05] VITALS (21 sets, daily range): BP systolic 115–159; BP diastolic 62–97; PULSE 64–87; RESP 11–18; TEMP 36.3–36.9; O2SAT 94–99; BMI 42.5
--- NOTE | 2023-11-05 15:56 | ED_ITS ---
Documented by User: ANGELLA Olvera 11/05/23 17:34 HPI - Abdominal Pain 2 General: Chief Complaint: Abdominal Pain Stated Complaint: lower right side abd pain Time Seen by Provider: 11/05/23 15:41 History of Present Illness: 33-year-old male patient comes in today with complaints of right abdominal pain that started in the right upper quadrant and now has gone to the right lower quadrant. Patient noticed increased pain when riding on the tractor this morning. Patient had a recent gastric bypass about 2 months ago. Patient had talked to the surgeon office today and they recommended he come in to be evaluated for a possible appendicitis. Patient appears nontoxic. Patient reports weight loss of about 50 pounds since his procedure. Patient denies any fever. Patient reports no nausea or vomiting. Patient's last meal was crackers this morning. Patient is also had some protein shake. Review of Systems 2 General: Reports: 10 or more systems reviewed and unremarkable except in HPI and below GI: Reports: abdominal pain PFSH ED 2 PFSH: Medical History Type 2 diabetes mellitus Cellulitis Abscess of skin or subcutaneous tissue Bulging lumbar disc Major depression Prediabetes Obesity HTN (hypertension) Radiculopathy, lumbar region Right ureteral stone Surgical History S/P ureteral stent placement Family History Mother No problems noted. Father Hypertension Other Cancer Diabetes Social History Smoking and tobacco/nicotine status: current some day tobacco/nicotine user Alcohol intake: never Marital status: Current occupational status: employed Physical Exam 2 Const: COMMON NORMALS: alert HENMT: HEAD & SCALP: normal to inspection Neck/C-Spine: COMMON NORMALS: full ROM Resp: COMMON NORMALS: normal respiratory effort Cardio: COMMON NORMALS: regular rate RATE: regular rate GI: COMMON NORMALS: Soft to palpation PALPATION: Yes Soft to palpation and Yes Tenderness to palpation present (GI) Details: RLQ Back/Pelvis: COMMON NORMALS: thoracic and lumbar spine normal to inspection Neuro: SENSORIUM/ORIENTATION: Yes alert Course 2 Vital Signs: Vital signs: Vital Signs Temperature 97.7 F 11/05/23 13:50 Pulse Rate 75 11/05/23 16:13 Respiratory Rate 17 11/05/23 16:56 Blood Pressure 142/77 11/05/23 16:13 Pulse Oximetry 99 11/05/23 16:13 Oxygen Delivery Me thod Room Air 11/05/23 16:13 MDM - Abdominal Pain Medical Decision Making 33-year-old male patient comes in today for complaints of right-sided abdominal pain. Patient reports pain started this morning. Patient reports some mild nausea but no vomiting. Patient denies any fever. Patient states it started in the right upper quadrant but has gone into the right lower quadrant now. Vital signs are normal. Differential diagnosis includes renal calculi, gallbladder disease, pancreatitis, gastroenteritis, abscess secondary to gastric bypass, appendicitis, surgical adhesions. 1719, CT scan noted a inflammation of the appendix suggesting early appendicitis. CBC CMP and urinalysis were unremarkable. I reviewed this with Dr. Hardy, surgeon on-call, who agreed to come and see the patient for further treatment. I reviewed this with Dr. Burrows, who agreed with plan. 4.5 g of Zosyn was ordered and patient was put on maintenance of D5 half-normal at 150 mL an hour. Lab Data 11/05/23 15:58 11/05/23 15:58 Labs/Radiology: Radiology Impressions Abdomen/Pelvis CT 11/05/23 16:05 IMPRESSION: 1. Mild distension of the appendiceal tip with subtle adjacent haziness. Mild/early acute tip appendicitis cannot be excluded. 2. Additional findings, as above. Laboratory Results WBC 8.85 10^3/uL (3.29-11.43) 11/05/23 15:58 RBC 5.07 10^6/uL (3.85-5.65) 11/05/23 15:58 Hgb 15.10 g/dL (11.27-16.99) 11/05/23 15:58 Hct 47.0 % (37-53) 11/05/23 15:58 MCV 92.7 fl (82-101) 11/05/23 15:58 MCH 29.8 pg (27-33) 11/05/23 15:58 MCHC 32.1 g/dL (30-55) 11/05/23 15:58 RDW 14.6 % (12.1-15.1) 11/05/23 15:58 Plt Count 182 10^3/cmm (157-399) 11/05/23 15:58 MPV 13.0 fL (7.4-10.4) H 11/05/23 15:58 Neut % (Auto) 57.7 % 11/05/23 15:58 Lymph % (Auto) 28.2 % 11/05/23 15:58 [place] % (Auto) 10.2 % 11/05/23 15:58 Eos % (Auto) 3.2 % 11/05/23 15:58 Baso % (Auto) 0.5 % 11/05/23 15:58 Neut # (Auto) 5.11 10^3/uL (1.8-7.7) 11/05/23 15:58 Lymph # (Auto) 2.5 10^3/uL (0.8-4.8) 11/05/23 15:58 [place] # (Auto) 0.9 10^3/uL (0.2-0.9) 11/05/23 15:58 Eos # (Auto) 0.3 10^3/uL (0.0-0.8) 11/05/23 15:58 Baso # (Auto) 0.0 10^3/uL (0.0-0.1) 11/05/23 15:58 Nucleated RBC % (auto) 0 % 11/05/23 15:58 Nucleated RBCs # 0.0 /100WBC 11/05/23 15:58 Sodium 141 mmol/L (136-145) 11/05/23 15:58 Potassium 4.0 mmol/L (3.5-5.1) 11/05/23 15:58 Chloride 104 mmol/L (98-107) 11/05/23 15:58 Carbon Dioxide 25 mmol/L (22-29) 11/05/23 15:58 Anion Gap 16.0 (5-19) 11/05/23 15:58 BUN 13 mg/dL (6-20) 11/05/23 15:58 Creatinine 0.7 mg/dL (0.7-1.2) 11/05/23 15:58 GFR Calculation 129.9 mL/min (90-130) 11/05/23 15:58 Glucose 106 mg/dL (65-115) 11/05/23 15:58 Calculated Osmolality 293 mOsm/kg (285-295) 11/05/23 15:58 Calcium 9.9 mg/dL (8.5-10.5) 11/05/23 15:58 Total Bilirubin 1.1 mg/dL (0.15-1.2) 11/05/23 15:58 AST 50 U/L (0-40) H 11/05/23 15:58 ALT 71 U/L (0-41) H 11/05/23 15:58 Alkaline Phosphatase 96 U/L (40-130) 11/05/23 15:58 Total Protein 8.1 g/dL (6.6-8.7) 11/05/23 15:58 Albumin 4.6 g/dL (3.5-5.2) 11/05/23 15:58 Globulin 3.5 g/dL (1.3-4.6) 11/05/23 15:58 Lipase 31 U/L (13-60) 11/05/23 15:58 Urine Color Yellow (Yellow) 11/05/23 16:49 Urine Appearance Clear (CLEAR) 11/05/23 16:49 Urine pH 5 (5-7) 11/05/23 16:49 Ur Specific [place] 1.015 (1.005-1.030) 11/05/23 16:49 Urine Protein Neg (Negative) 11/05/23 16:49 Urine Glucose (UA) Norm (Normal) 11/05/23 16:49 Urine Ketones 1+ (Negative) H 11/05/23 16:49 Urine Blood Neg (Negative) 11/05/23 16:49 Urine Nitrate Negative (Negative) 11/05/23 16:49 Urine Bilirubin Neg (Negative) 11/05/23 16:49 Urine Urobilinogen 1 mg/dL (Negative) H 11/05/23 16:49 Ur Leukocyte Esterase Negative (Negative) 11/05/23 16:49 All radiology interpretation(s) finalized by discharge Discharge Plan Discharge Patient Disposition: Placed in Observation Clinical Impression: Acute appendicitis Qualifiers: Acute appendicitis type: with localized peritonitis Appendicitis gangrene presence: without gangrene Appendicitis perforation presence: without perforation Appendicitis abscess presence: without abscess Qualified Code(s): K 35.30 - Acute appendicitis with localized peritonitis, without perforation or gangrene Coding Level of Care Code ED Foundry Equipment Mechanic for Chg Fwd Documented by User: Alvaro Burrows DO 11/05/23 17:35 HPI - Abdominal Pain 2 General: Chief Complaint: Abdominal Pain Stated Complaint: lower right side abd pain Time Seen by Provider: 11/05/23 15:41 PFSH ED 2 PFSH: Medical History Type 2 diabetes mellitus Cellulitis Abscess of skin or subcutaneous tissue Bulging lumbar disc Major depression Prediabetes Obesity HTN (hypertension) Radiculopathy, lumbar region Right ureteral stone Surgical History S/P ureteral stent placement Family History Mother No problems noted. Father Hypertension Other Cancer Diabetes Social History Smoking and tobacco/nicotine status: current some day tobacco/nicotine user Alcohol intake: never Marital status: Current occupational status: employed Course 2 Vital Signs: Vital signs: Vital Signs Temperature 97.7 F 11/05/23 13:50 Pulse Rate 75 11/05/23 16:13 Respiratory Rate 17 11/05/23 16:56 Blood Pressure 142/77 11/05/23 16:13 Pulse Oximetry 99 11/05/23 16:13 Oxygen Delivery Me thod Room Air 11/05/23 16:13 MDM - Abdominal Pain Medical Decision Making 33-year-old male patient comes in today for complaints of right-sided abdominal pain. Patient reports pain started this morning. Patient reports some mild nausea but no vomiting. Patient denies any fever. Patient states it started in the right upper quadrant but has gone into the right lower quadrant now. Vital signs are normal. Differential diagnosis includes renal calculi, gallbladder disease, pancreatitis, gastroenteritis, abscess secondary to gastric bypass, appendicitis, surgical adhesions. 1720, CT scan noted a inflammation of the appendix suggesting early appendicitis. CBC CMP and urinalysis were unremarkable. I reviewed this with Dr. Hardy, surgeon on-call, who agreed to come and see the patient for further treatment. I reviewed this with Dr. Burrows, who agreed with plan. 4.5 g of Zosyn was ordered and patient was put on maintenance of D5 half-normal at 150 mL an hour. Chart reviewed Lab Data 11/05/23 15:58 11/05/23 15:58 Labs/Radiology: Radiology Impressions Abdomen/Pelvis CT 11/05/23 16:05 IMPRESSION: 1. Mild distension of the appendiceal tip with subtle adjacent haziness. Mild/early acute tip appendicitis cannot be excluded. 2. Additional findings, as above. Laboratory Results WBC 8.85 10^3/uL (3.29-11.43) 11/05/23 15:58 RBC 5.07 10^6/uL (3.85-5.65) 11/05/23 15:58 Hgb 15.10 g/dL (11.27-16.99) 11/05/23 15:58 Hct 47.0 % (37-53) 11/05/23 15:58 MCV 92.7 fl (82-101) 11/05/23 15:58 MCH 29.8 pg (27-33) 11/05/23 15:58 MCHC 32.1 g/dL (30-55) 11/05/23 15:58 RDW 14.6 % (12.1-15.1) 11/05/23 15:58 Plt Count 182 10^3/cmm (157-399) 11/05/23 15:58 MPV 13.0 fL (7.4-10.4) H 11/05/23 15:58 Neut % (Auto) 57.7 % 11/05/23 15:58 Lymph % (Auto) 28.2 % 11/05/23 15:58 [place] % (Auto) 10.2 % 11/05/23 15:58 Eos % (Auto) 3.2 % 11/05/23 15:58 Baso % (Auto) 0.5 % 11/05/23 15:58 Neut # (Auto) 5.11 10^3/uL (1.8-7.7) 11/05/23 15:58 Lymph # (Auto) 2.5 10^3/uL (0.8-4.8) 11/05/23 15:58 [place] # (Auto) 0.9 10^3/uL (0.2-0.9) 11/05/23 15:58 Eos # (Auto) 0.3 10^3/uL (0.0-0.8) 11/05/23 15:58 Baso # (Auto) 0.0 10^3/uL (0.0-0.1) 11/05/23 15:58 Nucleated RBC % (auto) 0 % 11/05/23 15:58 Nucleated RBCs # 0.0 /100WBC 11/05/23 15:58 Sodium 141 mmol/L (136-145) 11/05/23 15:58 Potassium 4.0 mmol/L (3.5-5.1) 11/05/23 15:58 Chloride 104 mmol/L (98-107) 11/05/23 15:58 Carbon Dioxide 25 mmol/L (22-29) 11/05/23 15:58 Anion Gap 16.0 (5-19) 11/05/23 15:58 BUN 13 mg/dL (6-20) 11/05/23 15:58 Creatinine 0.7 mg/dL (0.7-1.2) 11/05/23 15:58 GFR Calculation 129.9 mL/min (90-130) 11/05/23 15:58 Glucose 106 mg/dL (65-115) 11/05/23 15:58 Calculated Osmolality 293 mOsm/kg (285-295) 11/05/23 15:58 Calcium 9.9 mg/dL (8.5-10.5) 11/05/23 15:58 Total Bilirubin 1.1 mg/dL (0.15-1.2) 11/05/23 15:58 AST 50 U/L (0-40) H 11/05/23 15:58 ALT 71 U/L (0-41) H 11/05/23 15:58 Alkaline Phosphatase 96 U/L (40-130) 11/05/23 15:58 Total Protein 8.1 g/dL (6.6-8.7) 11/05/23 15:58 Albumin 4.6 g/dL (3.5-5.2) 11/05/23 15:58 Globulin 3.5 g/dL (1.3-4.6) 11/05/23 15:58 Lipase 31 U/L (13-60) 11/05/23 15:58 Urine Color Yellow (Yellow) 11/05/23 16:49 Urine Appearance Clear (CLEAR) 11/05/23 16:49 Urine pH 5 (5-7) 11/05/23 16:49 Ur Specific [place] 1.015 (1.005-1.030) 11/05/23 16:49 Urine Protein Neg (Negative) 11/05/23 16:49 Urine Glucose (UA) Norm (Normal) 11/05/23 16:49 Urine Ketones 1+ (Negative) H 11/05/23 16:49 Urine Blood Neg (Negative) 11/05/23 16:49 Urine Nitrate Negative (Negative) 11/05/23 16:49 Urine Bilirubin Neg (Negative) 11/05/23 16:49 Urine Urobilinogen 1 mg/dL (Negative) H 11/05/23 16:49 Ur Leukocyte Esterase Negative (Negative) 11/05/23 16:49 Discharge Plan Discharge Patient Disposition: Placed in Observation Clinical Impression: Acute appendicitis Qualifiers: Acute appendicitis type: with localized peritonitis Appendicitis gangrene presence: without gangrene Appendicitis perforation presence: without perforation Appendicitis abscess presence: without abscess Qualified Code(s): K 35.30 - Acute appendicitis with localized peritonitis, without perforation or gangrene Coding Level of Care Code ED Foundry Equipment Mechanic for Kelby Bean
[2023-11-05 16:04] LABS: Basophils % 0.5 %; Eosinophils # 0.3 10^3/uL (0.0-0.8); Eosinophils % 3.2 %; Lymphocytes # 2.5 10^3/uL (0.8-4.8); Lymphocytes % 28.2 %; Mean Corpuscular HGB Conc 32.1 g/dL (30-55); Mean Corpuscular Hemoglobin 29.8 pg (27-33); Mean Corpuscular Volume 92.7 fl (82-101); Monocytes # 0.9 10^3/uL (0.2-0.9); Monocytes % 10.2 %; Neutrophils # 5.11 10^3/uL (1.8-7.7); Neutrophils % 57.7 %; Nucleated Red Blood Cells % 0 %; Platelet Count 182 10^3/cmm (157-399); Red Blood Count 5.07 10^6/uL (3.85-5.65); Red Cell Distribution Width 14.6 % (12.1-15.1); White Blood Count 8.85 10^3/uL (3.29-11.43)
--- NOTE | 2023-11-05 16:05 | CTR_ITS ---
PROCEDURE INFORMATION: Exam: CT Abdomen And Pelvis With Contrast Exam date and time: 11/05/2023 4:21 PM Age: 33 years old Clinical indication: Abdominal pain; Localized; Right lower quadrant (rlq); Prior surgery; Surgery date: 6+ months; Surgery type: Gastric bypass; Additional info: Right quadrant pain, recent gastric bypass TECHNIQUE: Imaging protocol: Computed tomography of the abdomen and pelvis with contrast. Axial, coronal and sagittal reformatted images were created and reviewed. Radiation optimization: All CT scans at this facility use at least one of these dose optimization techniques: automated exposure control; mA and/or kV adjustment per patient size (includes targeted exams where dose is matched to clinical indication); or iterative reconstruction. Contrast material: OMNI 350; Contrast volume: 100 ml; Contrast route: INTRAVENOUS (IV); COMPARISON: CT pelvis w con* [id number] 03/30/2023 9:34 PM RADIATION DOSE METRICS: Total DLP (mGy-cm): 1386 FINDINGS: Liver: Mild hepatomegaly. Diffuse hepatic steatosis. Gallbladder and bile ducts: No radiodense gallstones. No biliary ductal dilatation. Pancreas: Unremarkable. Spleen: Unremarkable. Adrenal glands: Normal. No mass. Kidneys and ureters: No mass. No radiodense calculi. No hydronephrosis. Stomach and bowel: Status post gastric sleeve. No obstruction. No bowel wall thickening. No pneumatosis. Appendix: Mild distension of the appendiceal tip with subtle adjacent haziness. Intraperitoneal space: No free fluid. No organized fluid collection. No free air. Vasculature: Unremarkable. No aneurysm. Lymph nodes: No pathologically enlarged lymph nodes. Urinary bladder: Unremarkable as visualized. Reproductive: Unremarkable. Bones/joints: No acute osseous abnormality. Mild degenerative changes. Soft tissues: Unremarkable. CT/CT abdomen pelvis w con* [id number] IMPRESSION: 1. Mild distension of the appendiceal tip with subtle adjacent haziness. Mild/early acute tip appendicitis cannot be excluded. 2. Additional findings, as above.
[2023-11-05 16:54] LABS: Alanine Aminotransferase 71 U/L (0-41); Albumin Level 4.6 g/dL (3.5-5.2); Alkaline Phosphatase 96 U/L (40-130); Aspartate Amino Transferase 50 U/L (0-40); Blood Urea Nitrogen 13 mg/dL (6-20); Calcium 9.9 mg/dL (8.5-10.5); Carbon Dioxide 25 mmol/L (22-29); Chloride 104 mmol/L (98-107); Creatinine Clr Calc Pharmacy 238.6024; Globulin 3.5 g/dL (1.3-4.6); Glomerular Filtration Rate 129.9 mL/min (90-130); Glucose 106 mg/dL (65-115); Lipase 31 U/L (13-60); Osmolality Calculated 293 mOsm/kg (285-295); Sodium 141 mmol/L (136-145); Total Bilirubin 1.1 mg/dL (0.15-1.2); Total Protein 8.1 g/dL (6.6-8.7)
[2023-11-05 16:56] LABS: Add Urine Microscopic? NO; Charge for UA Resulting for Rev
[2023-11-05] MEDS: morphine 4 mg/mL SDV 1 mL IVP (16:56)
[2023-11-05 16:59] LABS: Bilirubin Urine Neg (Negative); Blood Urine Neg (Negative); Glucose Urine UA Norm (Normal); Ketones Urine 1+ (Negative); Leukocyte Esterase Urine Negative (Negative); Nitrate Urine Negative (Negative); Protein Urine Neg (Negative); Specific Gravity, Urine 1.015 (1.005-1.030); Urine Appearance Clear (CLEAR); Urine Color Yellow (Yellow); Urobilinogen Urine 1 mg/dL (Negative); pH Urine 5 (5-7)
--- NOTE | 2023-11-05 18:03 | PC.NURSE ---
PER VERBAL ORDERS FROM ANGELLA MENDOZA, NO BLOOD CULTURES DRAWN BEFORE ADMINISTRATION OF IV ANTIBIOTICS.
[2023-11-05] MEDS: piperacillin-tazobactam 4.5 GM in sodium chloride 0.9% (plus) 50 ML IV (18:05)
--- NOTE | 2023-11-05 18:35 | P.HP_ITS ---
Providers/Chief Complaint 2 Primary Care Provider: Anmol Tolliver Chief Complaint: lower right side abd pain History of Present Illness Nixon Cook is a 33 year old male who presented to the hospital with 1 day history of periumbilical abdominal pain that radiates to his right lower quadrant. Palpation makes pain worse and nothing makes pain better. He does report chills but no recorded fever. Denies any nausea, emesis, diarrhea, constipation, hematochezia and/or melena. He reports that he is having dark stools but that he takes oral iron. He just had a duodenal switch procedure [address] the abdomen pelvis shows early acute appendicitis. Review of Systems 2 General: Reports: 10 or more systems reviewed and unremarkable except in HPI and below Medications/Allergies Home Medications Medication Instructions Recorded Confirmed Last Taken Type lisinopril 20 mg tablet 20 mg PO DAILY #90 tabs 09/05/22 10/16/23 Unknown Rx cyclobenzaprine 5 mg tablet 5 mg PO TID PRN muscle spasm #60 03/29/23 10/16/23 Unknown Rx tabs gabapentin 300 mg capsule 600 mg (2 x 300 mg) PO .QHS #60 05/22/23 10/16/23 Unknown Rx caps semaglutide 0.25 mg or 0.5 mg (2 0.25 mg (0.187 mL) SUBCUT .weekly 08/18/23 10/16/23 Unknown Rx mg/1.5 mL) subcutaneous pen 4 weeks #1.5 mL injector (Ozempic) terbinafine HCl 250 mg tablet 250 mg PO DAILY 14 days #14 tabs 10/16/23 10/16/23 Unknown Rx triamcinolone acetonide 0.1 % 1 applic topical BID 2 weeks #80 10/16/23 10/16/23 Unknown Rx topical cream grams Allergies Allergy/AdvReac Type Severity Reaction Status Date / Time metformin Allergy Intermediate Hot and Verified 10/16/23 07:53 sweaty PFSH Acute 2 PFSH: Medical History Type 2 diabetes mellitus Cellulitis Abscess of skin or subcutaneous tissue Bulging lumbar disc Major depression Prediabetes Obesity HTN (hypertension) Radiculopathy, lumbar region Right ureteral stone Surgical History S/P ureteral stent placement Family History Mother No problems noted. Father Hypertension Other Cancer Diabetes Social History Smoking and tobacco/nicotine status: current some day tobacco/nicotine user Alcohol intake: never Marital status: Current occupational status: employed Vitals/I&O/Wt Last Vital Signs Temp 97.7 F 11/05/23 13:50 Pulse 64 11/05/23 18:09 Resp 17 11/05/23 16:56 BP 116/62 11/05/23 18:09 Pulse Ox 95 11/05/23 18:09 O2 Del Method Room Air 11/05/23 18:09 Weight last 48 hrs Weight 340 lb Physical Exam 2 Narrative: General : Patient is well developed , no acute distress, oriented x3 Head : Normal cephalic, a-traumatic. Ears : Pinnae and external canal are normal. Hearing is normal. Eyes : PERRLA, Sclera and injection are normal. No conjunctival discharge. Nose : Mucous membranes are without erythema. Throat : buccal mucosa is normal, gums are without significant recession or hypertrophy. Lungs : Equal chest rise bilaterally, no use of accessory muscles, trachea is midline. Cor : Rate and rhythm are normal. Abdomen : Soft, ND, mild periumbilical and right lower quadrant tenderness, negative Rovsing's, no g/r/m Extremities : No edema, no cyanosis or clubbing, dorsalis pedis pulses are present bilaterally, non-tender to palpation of calves. Upper extremities are normal bilaterally. Back : non-tender to palpation, no CVA tenderness. Neuro : CN II - XII intact, Upper and lower extremities have equal and full strength Data 11/05/23 15:58 11/05/23 15:58 A&P Assessment and plan (1) Acute appendicitis: Qualifiers: Acute appendicitis type: with localized peritonitis Appendicitis abscess presence: without abscess Appendicitis gangrene presence: without gangrene Appendicitis perforation presence: without perforation Qualified Code(s): K35.30 - Acute appendicitis with localized peritonitis, without perforation or gangrene Plan Laparoscopic Appendectomy The risks and benefits of the procedure, including but not limited to, bleeding, infection, scar, numbness, pain, damage to surrounding structures, conversion to an open procedure, were explained to the patient. He is understanding of the risks and wishes to proceed. I will likely discharge him home, on antibiotics, after the procedure unless he is perforated Attestations 2 Medical Necessity Statement*: I will likely discharge him home, on antibiotics, after the procedure unless he is perforated Coding Level of Care Code 63400 Diagnoses Acute appendicitis K35.30 Acute appendicitis type: with localized peritonitis Appendicitis abscess presence: without abscess Appendicitis gangrene presence: without gangrene Appendicitis perforation presence: without perforation
[2023-11-05] MEDS: dextrose 5%-sod chloride 0.45% 1,000 ML 150 ML IV (18:52)
--- NOTE | 2023-11-05 19:14 | ANES.PREANE2 ---
Pre-Anesthetic Assessment Height/Weight: Height 1.91 m Weight 154.221 kg Temp Pulse Resp BP Pulse Ox O2 Del Method 97.7 F 80 17 123/81 97 Room Air 11/05/23 13:50 11/05/23 18:30 11/05/23 18:30 11/05/23 18:30 11/05/23 18:30 11/05/23 18:30 Operation Date: 11/05/23 19:10 Proposed Procedures p Laparoscopic Appendectomy(Right) - Robin Hardy DO Familial anesthetic complications: None Was Beta Teddy taken within 24 hours: N/A Was Clonidine taken within 24 hours: N/A Last intake: > 8hrs Social No alcohol and No tobacco Exam alert, oriented x 3, clear to auscultation bilaterally and regular rate & rhythm Airway Mallampati: Class IV Dentition: full Comments: Comments: Full turner Metabolic Morbid Obesity S/p bariatric surgery Anesthetic Plan ASA status: 2 Anesthesia: General Risk of > 500 ml blood loss (7ml/kg in children): No Medications/Allergies Home Medications Medication Instructions Recorded Confirmed Last Taken Type lisinopril 20 mg tablet 20 mg PO DAILY #90 tabs 09/05/22 10/16/23 Unknown Rx cyclobenzaprine 5 mg tablet 5 mg PO TID PRN muscle spasm #60 03/29/23 10/16/23 Unknown Rx tabs gabapentin 300 mg capsule 600 mg (2 x 300 mg) PO .QHS #60 05/22/23 10/16/23 Unknown Rx caps semaglutide 0.25 mg or 0.5 mg (2 0.25 mg (0.187 mL) SUBCUT .weekly 08/18/23 10/16/23 Unknown Rx mg/1.5 mL) subcutaneous pen 4 weeks #1.5 mL injector (Ozempic) terbinafine HCl 250 mg tablet 250 mg PO DAILY 14 days #14 tabs 10/16/23 10/16/23 Unknown Rx triamcinolone acetonide 0.1 % 1 applic topical BID 2 weeks #80 10/16/23 10/16/23 Unknown Rx topical cream grams Allergies Allergy/AdvReac Type Severity Reaction Status Date / Time metformin Allergy Intermediate Hot and Verified 10/16/23 07:53 sweaty Current Medications Generic Name Dose Route Start Last Admin Trade Name Freq PRN Reason Stop Dose Admin Dextrose/Sodium Chloride 1,000 mls @ 150 mls/hr 11/05/23 17:30 11/05/23 18:52 Dextrose 5%-Sod Chloride 0.45% IV 150 mls/hr .[id number] KAYLEE Administration PFSH Anesthesia Medical History Type 2 diabetes mellitus Cellulitis Abscess of skin or subcutaneous tissue Bulging lumbar disc Major depression Prediabetes Obesity HTN (hypertension) Radiculopathy, lumbar region Right ureteral stone Surgical History S/P ureteral stent placement Family History Mother No problems noted. Father Hypertension Other Cancer Diabetes Social History Smoking and tobacco/nicotine status: current some day tobacco/nicotine user Alcohol intake: never Marital status: Current occupational status: employed Data Anesthesia 11/05/23 15:58 11/05/23 15:58 Short CBC 11/05/23 Range/Units 15:58 WBC 8.85 (3.29-11.43) 10^3/uL Hgb 15.10 (11.27-16.99) g/dL Hct 47.0 (37-53) % MCV 92.7 (82-101) fl Plt Count 182 (157-399) 10^3/cmm Neut % (Auto) 57.7 % Neut # (Auto) 5.11 (1.8-7.7) 10^3/uL BMP 11/05/23 15:58 Sodium 141 Potassium 4.0 Chloride 104 Carbon Dioxide 25 BUN 13 Creatinine 0.7 Glucose 106 Calcium 9.9 Liver Function 11/05/23 Range/Units 15:58 Total Bilirubin 1.1 (0.15-1.2) mg/dL AST 50 H (0-40) U/L ALT 71 H (0-41) U/L Alkaline Phosphatase 96 (40-130) U/L Albumin 4.6 (3.5-5.2) g/dL Urine 11/05/23 Range/Units 16:49 Urine Color Yellow (Yellow) Urine Appearance Clear (CLEAR) Urine pH 5 (5-7) Ur Specific [place] 1.015 (1.005-1.030) Urine Protein Neg (Negative) Urine Glucose (UA) Norm (Normal) Urine Ketones 1+ H (Negative) Urine Nitrate Negative (Negative) Urine Bilirubin Neg (Negative) Ur Leukocyte Esterase Negative (Negative) Cardiac Studies: No Data to Display
[2023-11-05] MEDS: lidocaine-epi 2% PF 1:200,000 20 mL SDV XX (20:09)
--- NOTE | 2023-11-05 20:26 | PM.OP ---
Operative Report Date of procedure: November 05, 2023 Pre-op diagnosis: Acute appendicitis Post-op diagnosis: same Procedure done: Laparoscopic appendectomy Implants: None Specimens removed/disposition: Appendix Surgeon: Robin Hardy DO Anesthesia: General and Local Estimated blood loss (mL): 5 Complications: None apparent Brief History: 33-year-old gentleman who presents hospital with abdominal pain. He was diagnosed with acute appendicitis. Laparoscopic appendectomy was indicated. The risk benefits were explained and documented. Procedure: Patient was wheeled into the operative room and placed on the OR table in a supine position. Abdomen was inspected prepped and draped in usual sterile fashion. Time-out was performed and all present were in agreement. A 15 blade scalp was used to make a stab incision in the left upper quadrant and intra-abdominal insufflation was achieved using a Veress needle. After localizing the tissue incisions were made and a 12 millimeter trocar was placed into the umbilicus as well as a 5mm in the right lower quadrant and a 5 mm in the left lower quadrant . The appendix was identified and was mildly inflamed. I used the Voyant to ligate the mesoappendix at the base. I then used 2 PDS endo-loops to snare the base of the appendix. I then used the Voyant to ligate the appendix distally. The appendix was removed from the abdomen using an Endo-Catch bag through the umbilical incision. I examined the abdomen and no further pathology was identified. Hemostasis was noted. I then closed the umbilical site with a Alex-Sue and 0 Vicryl suture in a figure of 8 fashion. All ports removed. Skin was washed and dried. Incisions were closed with 4 O Vicryl in a subcuticular interrupted fashion. Skin glue was applied. Patient tolerated the procedure well.
--- NOTE | 2023-11-05 20:30 | P.DS_ITS ---
Discharge Providers Date of Discharge: November 05, 2023 Attending Provider at Discharge: Robin Hardy DO Primary Care Provider: Anmol Tolliver Diagnoses at Discharge Discharge Diagnosis (1) Acute appendicitis: Status: Acute Qualifiers: Acute appendicitis type: with localized peritonitis Appendicitis abscess presence: without abscess Appendicitis gangrene presence: without gangrene Appendicitis perforation presence: without perforation Qualified Code(s): K35.30 - Acute appendicitis with localized peritonitis, without perforation or gangrene Reason for Visit Reason for Visit: lower right side abd pain Hospital Course Hospital Course Is a very pleasant 33-year-old gentleman who presented to the hospital with acute cystitis. He underwent laparoscopic appendectomy and was discharged home in good condition the same day. Physical Exam Narrative: General : Patient is well developed , no acute distress, oriented x3 Head : Normal cephalic, a-traumatic. Ears : Pinnae and external canal are normal. Hearing is normal. Eyes : PERRLA, Sclera and injection are normal. No conjunctival discharge. Nose : Mucous membranes are without erythema. Throat : buccal mucosa is normal, gums are without significant recession or hypertrophy. Lungs : Equal chest rise bilaterally, no use of accessory muscles, trachea is midline. Cor : Rate and rhythm are normal. Abdomen : Soft, ND, appropriately tender, no g/r/m Extremities : No edema, no cyanosis or clubbing, dorsalis pedis pulses are present bilaterally, non-tender to palpation of calves. Upper extremities are normal bilaterally. Back : non-tender to palpation, no CVA tenderness. Neuro : CN II - XII intact, Upper and lower extremities have equal and full strength Discharge Data Studies Completed and Pending Completed Studies During Hospitalization Category Date Time Status CT abdomen pelvis w con* [id number] Stat Cat Scan 11/05/23 16:05 Completed Pending at discharge Category Date Time Status Pathology: Surgical [PTH] Routine Pth 11/05/23 20:04 Ordered Radiology Impressions Abdomen/Pelvis CT 11/05/23 16:05 IMPRESSION: 1. Mild distension of the appendiceal tip with subtle adjacent haziness. Mild/early acute tip appendicitis cannot be excluded. 2. Additional findings, as above. Laboratory Results WBC 8.85 10^3/uL (3.29-11.43) 11/05/23 15:58 RBC 5.07 10^6/uL (3.85-5.65) 11/05/23 15:58 Hgb 15.10 g/dL (11.27-16.99) 11/05/23 15:58 Hct 47.0 % (37-53) 11/05/23 15:58 MCV 92.7 fl (82-101) 11/05/23 15:58 MCH 29.8 pg (27-33) 11/05/23 15:58 MCHC 32.1 g/dL (30-55) 11/05/23 15:58 RDW 14.6 % (12.1-15.1) 11/05/23 15:58 Plt Count 182 10^3/cmm (157-399) 11/05/23 15:58 MPV 13.0 fL (7.4-10.4) H 11/05/23 15:58 Neut % (Auto) 57.7 % 11/05/23 15:58 Lymph % (Auto) 28.2 % 11/05/23 15:58 [place] % (Auto) 10.2 % 11/05/23 15:58 Eos % (Auto) 3.2 % 11/05/23 15:58 Baso % (Auto) 0.5 % 11/05/23 15:58 Neut # (Auto) 5.11 10^3/uL (1.8-7.7) 11/05/23 15:58 Lymph # (Auto) 2.5 10^3/uL (0.8-4.8) 11/05/23 15:58 [place] # (Auto) 0.9 10^3/uL (0.2-0.9) 11/05/23 15:58 Eos # (Auto) 0.3 10^3/uL (0.0-0.8) 11/05/23 15:58 Baso # (Auto) 0.0 10^3/uL (0.0-0.1) 11/05/23 15:58 Nucleated RBC % (auto) 0 % 11/05/23 15:58 Nucleated RBCs # 0.0 /100WBC 11/05/23 15:58 Sodium 141 mmol/L (136-145) 11/05/23 15:58 Potassium 4.0 mmol/L (3.5-5.1) 11/05/23 15:58 Chloride 104 mmol/L (98-107) 11/05/23 15:58 Carbon Dioxide 25 mmol/L (22-29) 11/05/23 15:58 Anion Gap 16.0 (5-19) 11/05/23 15:58 BUN 13 mg/dL (6-20) 11/05/23 15:58 Creatinine 0.7 mg/dL (0.7-1.2) 11/05/23 15:58 GFR Calculation 129.9 mL/min (90-130) 11/05/23 15:58 Glucose 106 mg/dL (65-115) 11/05/23 15:58 Calculated Osmolality 293 mOsm/kg (285-295) 11/05/23 15:58 Calcium 9.9 mg/dL (8.5-10.5) 11/05/23 15:58 Total Bilirubin 1.1 mg/dL (0.15-1.2) 11/05/23 15:58 AST 50 U/L (0-40) H 11/05/23 15:58 ALT 71 U/L (0-41) H 11/05/23 15:58 Alkaline Phosphatase 96 U/L (40-130) 11/05/23 15:58 Total Protein 8.1 g/dL (6.6-8.7) 11/05/23 15:58 Albumin 4.6 g/dL (3.5-5.2) 11/05/23 15:58 Globulin 3.5 g/dL (1.3-4.6) 11/05/23 15:58 Lipase 31 U/L (13-60) 11/05/23 15:58 Urine Color Yellow (Yellow) 11/05/23 16:49 Urine Appearance Clear (CLEAR) 11/05/23 16:49 Urine pH 5 (5-7) 11/05/23 16:49 Ur Specific [place] 1.015 (1.005-1.030) 11/05/23 16:49 Urine Protein Neg (Negative) 11/05/23 16:49 Urine Glucose (UA) Norm (Normal) 11/05/23 16:49 Urine Ketones 1+ (Negative) H 11/05/23 16:49 Urine Blood Neg (Negative) 11/05/23 16:49 Urine Nitrate Negative (Negative) 11/05/23 16:49 Urine Bilirubin Neg (Negative) 11/05/23 16:49 Urine Urobilinogen 1 mg/dL (Negative) H 11/05/23 16:49 Ur Leukocyte Esterase Negative (Negative) 11/05/23 16:49 Procedures Performed Laparoscopic appendectomy Vitals Last Vital Signs Temp 98.0 F 11/05/23 19:21 Pulse 65 11/05/23 19:21 Resp 17 11/05/23 19:21 BP 115/67 11/05/23 19:21 Pulse Ox 98 11/05/23 19:21 O2 Del Method Room Air 11/05/23 19:21 Discharge Plan Discharge Patient Disposition: Home Condition: Stable Prescriptions: New amoxicillin-pot clavulanate 875-125 mg tablet 1 tab PO BID Qty: 14 0RF hydrocodone-acetaminophen 7.5-325 mg tablet 1 tab PO Q6H PRN (Reason: pain) Qty: 20 0RF Colace 100 mg capsule 100 mg PO BID Qty: 14 0RF Continued triamcinolone acetonide 0.1 % cream 1 applic topical BID 14 Days Qty: 80 3RF terbinafine HCl 250 mg tablet 250 mg PO DAILY 14 Days Qty: 14 0RF Rx Instructions: Take one tablet daily for 14 days cyclobenzaprine 5 mg tablet 5 mg PO TID PRN (Reason: muscle spasm) Qty: 60 0RF gabapentin 300 mg capsule 600 mg PO .QHS Qty: 60 0RF lisinopril 20 mg tablet 20 mg PO DAILY Qty: 90 3RF Ozempic 0.25 mg or 0.5 mg(2 mg/1.5 mL) pen injector 0.25 mg SUBCUT .weekly 28 Days Qty: 1.5 0RF Rx Instructions: 0.25mg weekly for week 1-4, increase to 0.5mg for week 5-8 Discharge Orders: Discharge Order (Routine); Ordered 11/05/23 Ordered By: Robin Hardy Referrals: Robin Hardy DO [Physician] - 2 weeks Anmol Tolliver NP [Primary Care Provider] - 4-7 days Discharge Diet: Advance as tolerated Discharge Activity: Resume usual activity Patient Instructions: Appendicitis (GEN) Activity Restrictions/Additional Instructions: Do not soak incisions underwater for 2 weeks. Shower daily. Discharge Attestations Time Spent in Discharge Care*: less than 30 min Quality Metrics Clinical Quality Measures [ No reported AMI, CVA or VTE this stay] Coding Level of Care Code Acute Code for Chg Fwd Diagnoses Acute appendicitis K35.30 Acute appendicitis type: with localized peritonitis Appendicitis abscess presence: without abscess Appendicitis gangrene presence: without gangrene Appendicitis perforation presence: without perforation
[2023-11-05] MEDS: clindamycin 600 MG/50 ML PREMIX 100 MG IV (21:00)
[2023-11-05] MEDS: fentaNYL 50 mcg/mL INJ 2mL IVP (21:10)
--- NOTE | 2023-11-05 22:00 | ANE.PACU2 ---
Inpatient post-anesthesia follow up: Airway intact: Yes Vital signs: Temperature 98.4 F Pulse Rate 70 Respiratory Rate 18 Blood Pressure 142/71 Pulse Oximetry 96 Oxygen Delivery Me thod Room Air Oxygen Flow Rate 2 Fraction of Inspir ed Oxygen Hydration adequate: Yes Nausea and vomiting: No Pain level: 1 Mental status: Baseline
== END 2023-11-05 22:01 | disposition home or self-care (01) ==
LOC: ER 18:33 → OR 18:40
PROVIDERS: Emergency Provider Nurse Practitioner Family; PCP Clinical Nurse Specialist Adult Health; Visit Provider Surgery
PROC: 0DTJ4ZZ Resection of Appendix, Percutaneous Endoscopic Approach (ICD-10-PCS; CPT 44970; principal; 2023-11-05 19:00)
DX: K35.80 Unspecified acute appendicitis (principal); E66.01 Morbid (severe) obesity due to excess calories; Z68.41 Body mass index [BMI] 40.0-44.9, adult; Z98.84 Bariatric surgery status; E11.9 Type 2 diabetes mellitus without complications; I10 Essential (primary) hypertension; F17.200 Nicotine dependence, unspecified, uncomplicated
CPT/HCPCS: 44970; 74177; 80053; 81003; 83690; 85025; 88304; J0330; J1100; J1170; J2250; J2270; J2405; J2543; J2704; J3010; J3490; J7799; Q9967

== ENCOUNTER 2023-11-06 18:46 | Emergency (ER) | payer BC, SELFPAY ==
--- NOTE | 2023-11-06 18:52 | XRR_ITS ---
PROCEDURE INFORMATION: Exam: XR Chest Exam date and time: 11/06/2023 6:54 PM Age: 33 years old Clinical indication: Shortness of breath; Additional info: SOB TECHNIQUE: Imaging protocol: Radiologic exam of the chest. Views: 1 view. COMPARISON: CR XR chest 1V portable [id number] 07/30/2021 9:44 PM FINDINGS: Lungs: Unremarkable. No consolidation. Pleural spaces: Unremarkable. No pleural effusion. No pneumothorax. Heart/Mediastinum: Unremarkable. No cardiomegaly. Bones/joints: Unremarkable. Intraperitoneal space: Crescentic lucency inferior to the right hemidiaphragm concerning for free intraperitoneal air. In the absence of history of recent surgery, this is concerning for bowel perforation. XR/XR chest 1V portable [id number] IMPRESSION: Crescentic lucency inferior to the right hemidiaphragm concerning for free intraperitoneal air. In the absence of history of recent surgery, this is concerning for bowel perforation.
[2023-11-06 18:59] VITALS: BP 147/92; PULSE 86; RESP 18; TEMP 36.9; O2SAT 97
--- NOTE | 2023-11-06 20:47 | CTR_ITS ---
PROCEDURE INFORMATION: Exam: CT Abdomen And Pelvis With Contrast Exam date and time: 11/06/2023 9:05 PM Age: 33 years old Clinical indication: Abdominal pain; Prior surgery; Surgery date: Post-operative (0-2 days); Surgery type: Appendectomy; Additional info: Abd pain TECHNIQUE: Imaging protocol: Computed tomography of the abdomen and pelvis with contrast. Radiation optimization: All CT scans at this facility use at least one of these dose optimization techniques: automated exposure control; mA and/or kV adjustment per patient size (includes targeted exams where dose is matched to clinical indication); or iterative reconstruction. Contrast material: OMNI 350; Contrast volume: 100 ml; Contrast route: INTRAVENOUS (IV); COMPARISON: CT abdomen pelvis w con* [id number] 11/05/2023 4:21 PM RADIATION DOSE METRICS: Total DLP (mGy-cm): 1527.7 FINDINGS: Liver: Patchy irregular areas of hyperattenuation within the periphery of the liver measuring up to 5.2 x 4.7 cm which were present on the prior examination but are incompletely assessed on this and the prior examination. Neoplasm cannot be excluded liver MRI may be of benefit to more fully characterize this finding. Gallbladder and bile ducts: Normal. No calcified stones. No ductal dilation. Pancreas: Normal. No ductal dilation. Spleen: Normal. No splenomegaly. Adrenal glands: Normal. No mass. Kidneys and ureters: Normal. No hydronephrosis. Stomach and bowel: Prior sleeve gastrectomy. Appendix: The appendix is absent. Intraperitoneal space: Multiple locules of free intraperitoneal air and postsurgical changes in the anterior abdominal wall may represent sequela recent appendectomy per history. No intraperitoneal abscess. Vasculature: Unremarkable. No abdominal aortic aneurysm. Lymph nodes: Unremarkable. No enlarged lymph nodes. Urinary bladder: Unremarkable as visualized. Reproductive: Unremarkable as visualized. Bones/joints: Unremarkable. No acute fracture. Soft tissues: Unremarkable. CT/CT abdomen pelvis w con* [id number] IMPRESSION: 1. Multiple locules of free intraperitoneal air and postsurgical changes in the anterior abdominal wall which may represent sequela of recent appendectomy. 2. Prior sleeve gastrectomy. 3. No intraperitoneal abscess. 4. Patchy irregular areas of hyperattenuation within the periphery of the liver measuring up to 5.2 x 4.7 cm which were present on the prior examination but are incompletely assessed on this and the prior examination. Neoplasm cannot be excluded and a liver MRI may be of benefit to more fully characterize this finding.
[2023-11-06 20:53] VITALS: RESP 16
[2023-11-06] MEDS: ondansetron 2 mg/ML SDV 2 mL 4 MG IVP (20:53)
[2023-11-06] MEDS: morphine 4 mg/mL SDV 1 mL IVP (20:53)
--- NOTE | 2023-11-06 20:54 | ED_ITS ---
HPI - Abdominal Pain 2 General: Chief Complaint: Abdominal Pain Stated Complaint: abdomen pain, pain with breathing, post appy Time Seen by Provider: 11/06/23 20:47 Source: patient Mode of arrival: ambulatory Limitations: no limitations History of Present Illness: 33-year-old male who had had an appendec shayla last night he is discharged last night as well he states he has been having some increased abdominal pain today. States he is got right lower quadrant pain and epigastric pain he rates his pain a 6 out of 10 he had low-grade fevers as well. Denies any diarrhea denies dysuria Associated Symptoms: Denies chills, diarrhea, fever(s), nausea and vomiting Review of Systems 2 Const: Denies: fever(s), chills, body aches or change in appetite ENMT: Denies: throat pain or dental pain Card: Denies: chest pain Resp: Denies: dyspnea GI: Reports: abdominal pain; Denies: nausea, vomiting or diarrhea Musc: Denies: neck pain or back pain Skin/Breast: Denies: rash Neuro: Denies: headache(s) PFSH ED 2 PFSH: Medical History Type 2 diabetes mellitus Cellulitis Abscess of skin or subcutaneous tissue Bulging lumbar disc Major depression Prediabetes Obesity HTN (hypertension) Radiculopathy, lumbar region Right ureteral stone Surgical History S/P ureteral stent placement Family History Mother No problems noted. Father Hypertension Other Cancer Diabetes Social History Smoking and tobacco/nicotine status: current some day tobacco/nicotine user Alcohol intake: never Marital status: Current occupational status: employed Physical Exam 2 Const: COMMON NORMALS: no acute distress, patient oriented x3 and healthy appearing HENMT: COMMON NORMALS: normocephalic and atraumatic HEAD & SCALP: n ormocephalic and atraumatic Neck/C-Spine: COMMON NORMALS: full ROM and supple Chest: COMMONS NORMALS: normal inspection of the chest Resp: COMMON NORMALS: normal respiratory effort Cardio: COMMON NORMALS: regular rate, regular rhythm and No murmurs present (Cardio) RATE: regular rate RHYTHM: regular rhythm GI: COMMON NORMALS: Normal to inspection, nondistended, normoactive bowel sounds present, Soft to palpation and no masses PALPATION: Yes Soft to palpation OTHER: incisions c/d/i mild diffuse tenderness Extremity: COMMON NORMALS: normal to inspection and full ROM Neuro: COMMON NORMALS: patient oriented x3, moves all extremities and no focal motor deficits Psych: COMMON NORMALS: mental status grossly normal, Normal thought process present and cooperative THOUGHT PROCESS: Normal thought process present Skin: COMMON NORMALS: no rashes or lesions noted and no wounds GENERAL SKIN EXAM: no rashes or lesions noted Course 2 Vital Signs: Vital signs: Vital Signs Temperature 98.4 F 11/06/23 18:59 Pulse Rate 74 11/06/23 20:57 Respiratory Rate 16 11/06/23 21:43 Blood Pressure 136/71 11/06/23 20:57 Pulse Oximetry 97 11/06/23 21:38 Oxygen Delivery Me thod Room Air 11/06/23 21:38 MDM - Abdominal Pain Medical Decision Making Patient presents here with abdominal pain is postop imaging here shows no acute abnormalities his exam at discharge is benign blood works normal he is stable for discharge follow-up with surgeon return if worsening. Medical Records I reviewed the patient's medical records. Lab Data I reviewed the patient's lab results. 11/06/23 20:50 11/06/23 20:50 Labs/Radiology: Radiology Impressions Chest X-Ray 11/06/23 18:52 IMPRESSION: Crescentic lucency inferior to the right hemidiaphragm concerning for free intraperitoneal air. In the absence of history of recent surgery, this is concerning for bowel perforation. ADDENDUM: 11/06/231948 THIS REPORT CONTAINS FINDINGS THAT MAY BE CRITICAL TO PATIENT CARE. The findings were verbally communicated via telephone conference with RAVINDER Greer at 7:47 PM CDT on 11/06/2023. The findings were acknowledged and understood. Additional history includes appendectomy 2 days ago. This may account for the small amount of free air in the upright chest radiograph. Abdomen/Pelvis CT 11/06/23 20:47 IMPRESSION: 1. Multiple locules of free intraperitoneal air and postsurgical changes in the anterior abdominal wall which may represent sequela of recent appendectomy. 2. Prior sleeve gastrectomy. 3. No intraperitoneal abscess. 4. Patchy irregular areas of hyperattenuation within the periphery of the liver measuring up to 5.2 x 4.7 cm which were present on the prior examination but are incompletely assessed on this and the prior examination. Neoplasm cannot be excluded and a liver MRI may be of benefit to more fully characterize this finding. Laboratory Results WBC 13.52 10^3/uL (3.29-11.43) H 11/06/23 20:50 RBC 4.85 10^6/uL (3.85-5.65) 11/06/23 20:50 Hgb 14.30 g/dL (11.27-16.99) 11/06/23 20:50 Hct 44.3 % (37-53) 11/06/23 20:50 MCV 91.3 fl (82-101) 11/06/23 20:50 MCH 29.5 pg (27-33) 11/06/23 20:50 MCHC 32.3 g/dL (30-55) 11/06/23 20:50 RDW 14.3 % (12.1-15.1) 11/06/23 20:50 Plt Count 191 10^3/cmm (157-399) 11/06/23 20:50 MPV 13.0 fL (7.4-10.4) H 11/06/23 20:50 Neut % (Auto) 72.9 % 11/06/23 20:50 Lymph % (Auto) 18.6 % 11/06/23 20:50 [place] % (Auto) 8.1 % 11/06/23 20:50 Eos % (Auto) 0.1 % 11/06/23 20:50 Baso % (Auto) 0.1 % 11/06/23 20:50 Neut # (Auto) 9.86 10^3/uL (1.8-7.7) H 11/06/23 20:50 Lymph # (Auto) 2.5 10^3/uL (0.8-4.8) 11/06/23 20:50 [place] # (Auto) 1.1 10^3/uL (0.2-0.9) H 11/06/23 20:50 Eos # (Auto) 0.0 10^3/uL (0.0-0.8) 11/06/23 20:50 Baso # (Auto) 0.0 10^3/uL (0.0-0.1) 11/06/23 20:50 Nucleated RBC % (auto) 0 % 11/06/23 20:50 Nucleated RBCs # 0.0 /100WBC 11/06/23 20:50 Sodium 141 mmol/L (136-145) 11/06/23 20:50 Potassium 3.9 mmol/L (3.5-5.1) 11/06/23 20:50 Chloride 105 mmol/L (98-107) 11/06/23 20:50 Carbon Dioxide 24 mmol/L (22-29) 11/06/23 20:50 Anion Gap 15.9 (5-19) 11/06/23 20:50 BUN 13 mg/dL (6-20) 11/06/23 20:50 Creatinine 0.7 mg/dL (0.7-1.2) 11/06/23 20:50 GFR Calculation 129.9 mL/min (90-130) 11/06/23 20:50 Glucose 116 mg/dL (65-115) H 11/06/23 20:50 Calculated Osmolality 293 mOsm/kg (285-295) 11/06/23 20:50 Calcium 9.5 mg/dL (8.5-10.5) 11/06/23 20:50 Total Bilirubin 0.7 mg/dL (0.15-1.2) 11/06/23 20:50 AST 44 U/L (0-40) H 11/06/23 20:50 ALT 67 U/L (0-41) H 11/06/23 20:50 Alkaline Phosphatase 90 U/L (40-130) 11/06/23 20:50 Total Protein 7.6 g/dL (6.6-8.7) 11/06/23 20:50 Albumin 4.2 g/dL (3.5-5.2) 11/06/23 20:50 Globulin 3.4 g/dL (1.3-4.6) 11/06/23 20:50 Lipase 24 U/L (13-60) 11/06/23 20:50 Urine Color Yellow (Yellow) 11/06/23 21:20 Urine Appearance Sl hazy (CLEAR) A 11/06/23 21:20 Urine pH 5 (5-7) 11/06/23 21:20 Ur Specific [place] 1.025 (1.005-1.030) 11/06/23 21:20 Urine Protein 1+ (Negative) H 11/06/23 21:20 Urine Glucose (UA) Norm (Normal) 11/06/23 21:20 Urine Ketones 2+ (Negative) H 11/06/23 21:20 Urine Blood Neg (Negative) 11/06/23 21:20 Urine Nitrate Negative (Negative) 11/06/23 21:20 Urine Bilirubin 1+ (Negative) H 11/06/23 21:20 Urine Urobilinogen 1 mg/dL (Negative) H 11/06/23 21:20 Ur Leukocyte Esterase Trace (Negative) H 11/06/23 21:20 Urine RBC None /hpf (0-2) 11/06/23 21:20 Urine WBC 0-4 /hpf (0-5) H 11/06/23 21:20 Ur Squamous Epith Cells 5-10 /hpf (0-5) H 11/06/23 21:20 Calcium Oxalate Crystal 5-10 /hpf H 11/06/23 21:20 Amorphous Sediment Not Reportable 11/06/23 21:20 Urine Bacteria Trace /hpf (NONE) 11/06/23 21:20 Urine Mucus 3+ /hpf 11/06/23 21:20 All radiology interpretation(s) finalized by discharge Discharge Plan Discharge Patient Disposition: Home Clinical Impression: Abdominal pain Qualifiers: Abdominal location: generalized Qualified Code(s): R10.84 - Generalized abdominal pain Condition: Stable Prescriptions: No Action triamcinolone acetonide 0.1 % cream 1 applic topical BID 14 Days Qty: 80 3RF terbinafine HCl 250 mg tablet 250 mg PO DAILY 14 Days Qty: 14 0RF Rx Instructions: Take one tablet daily for 14 days cyclobenzaprine 5 mg tablet 5 mg PO TID PRN (Reason: muscle spasm) Qty: 60 0RF gabapentin 300 mg capsule 600 mg PO .QHS Qty: 60 0RF lisinopril 20 mg tablet 20 mg PO DAILY Qty: 90 3RF Ozempic 0.25 mg or 0.5 mg(2 mg/1.5 mL) pen injector 0.25 mg SUBCUT .weekly 28 Days Qty: 1.5 0RF Rx Instructions: 0.25mg weekly for week 1-4, increase to 0.5mg for week 5-8 amoxicillin-pot clavulanate 875-125 mg tablet 1 tab PO BID Qty: 14 0RF hydrocodone-acetaminophen 7.5-325 mg tablet 1 tab PO Q6H PRN (Reason: pain) Qty: 20 0RF Colace 100 mg capsule 100 mg PO BID Qty: 14 0RF Discharge Orders: Discharge ED (Routine); Ordered 11/06/23 Ordered By: Ravinder Laws Referrals: Robin Hardy DO [Physician] - 4-7 days Anmol Tolliver NP [Primary Care Provider] - Discharge Diet: Advance as tolerated Discharge Activity: Resume usual activity Patient Instructions: Abdominal Pain (ED) Coding Level of Care Code 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
[2023-11-06 20:57] VITALS: BP 136/71; PULSE 74; O2SAT 94
[2023-11-06] MEDS: iohexol 350 mg/mL 500 mL Btl (per mL) IV (21:04)
[2023-11-06 21:08] LABS: Basophils % 0.1 %; Eosinophils % 0.1 %; Hematocrit 44.3 % (37-53); Lymphocytes # 2.5 10^3/uL (0.8-4.8); Lymphocytes % 18.6 %; Mean Corpuscular HGB Conc 32.3 g/dL (30-55); Mean Corpuscular Hemoglobin 29.5 pg (27-33); Mean Corpuscular Volume 91.3 fl (82-101); Monocytes # 1.1 10^3/uL (0.2-0.9); Monocytes % 8.1 %; Neutrophils # 9.86 10^3/uL (1.8-7.7); Neutrophils % 72.9 %; Nucleated Red Blood Cells % 0 %; Platelet Count 191 10^3/cmm (157-399); Red Blood Count 4.85 10^6/uL (3.85-5.65); Red Cell Distribution Width 14.3 % (12.1-15.1); White Blood Count 13.52 10^3/uL (3.29-11.43)
[2023-11-06 21:30] LABS: Alanine Aminotransferase 67 U/L (0-41); Albumin Level 4.2 g/dL (3.5-5.2); Alkaline Phosphatase 90 U/L (40-130); Anion Gap 15.9 (5-19); Aspartate Amino Transferase 44 U/L (0-40); Blood Urea Nitrogen 13 mg/dL (6-20); Calcium 9.5 mg/dL (8.5-10.5); Carbon Dioxide 24 mmol/L (22-29); Chloride 105 mmol/L (98-107); Creatinine Clr Calc Pharmacy 238.6024; Globulin 3.4 g/dL (1.3-4.6); Glomerular Filtration Rate 129.9 mL/min (90-130); Glucose 116 mg/dL (65-115); Lipase 24 U/L (13-60); Osmolality Calculated 293 mOsm/kg (285-295); Potassium 3.9 mmol/L (3.5-5.1); Sodium 141 mmol/L (136-145); Total Bilirubin 0.7 mg/dL (0.15-1.2); Total Protein 7.6 g/dL (6.6-8.7)
[2023-11-06 21:38] VITALS: O2SAT 97
[2023-11-06 21:43] VITALS: RESP 16
[2023-11-06] MEDS: HYDROmorphone 1 mg/mL INJ 1 mL IVP (21:43)
[2023-11-06 21:48] LABS: Add Urine Microscopic? YES; Bilirubin Urine 1+ (Negative); Blood Urine Neg (Negative); Glucose Urine UA Norm (Normal); Ketones Urine 2+ (Negative); Leukocyte Esterase Urine Trace (Negative); Nitrate Urine Negative (Negative); Protein Urine 1+ (Negative); Specific Gravity, Urine 1.025 (1.005-1.030); Urine Appearance SL Hazy (CLEAR); Urine Color Yellow (Yellow); Urobilinogen Urine 1 mg/dL (Negative); WBC Urine 0-4 /hpf (0-5); pH Urine 5 (5-7)
[2023-11-06 21:49] LABS: Add Urine Culture? No; Bacteria Urine TRACE /hpf; Mucus Urine 3+ /hpf
[2023-11-06 22:05] VITALS: BP 107/63; PULSE 64; O2SAT 93
== END 2023-11-06 22:06 | disposition home or self-care (01) ==
PROVIDERS: Emergency Provider Emergency Medicine; PCP Clinical Nurse Specialist Adult Health
DX: R10.84 Generalized abdominal pain (principal); Z98.890 Other specified postprocedural states; Z79.85 Long-term (current) use of injectable non-insulin antidiabetic drugs; Z72.0 Tobacco use; E11.9 Type 2 diabetes mellitus without complications; I10 Essential (primary) hypertension
CPT/HCPCS: 36415; 71045; 74177; 80053; 81001; 83690; 85025; 96374; 96375; 99285; J1170; J2270; J2405; Q9967

== ENCOUNTER 2024-01-26 12:25 | Emergency (ER) | payer BC, SELFPAY ==
[2024-01-26 12:44] VITALS: BP 123/74; PULSE 89; RESP 18; TEMP 36.7; O2SAT 98
[2024-01-26 13:33] LABS: Basophils # 0.1 10^3/uL (0.0-0.1); Basophils % 0.5 %; Eosinophils # 0.2 10^3/uL (0.0-0.8); Eosinophils % 1.8 %; Hematocrit 46.7 % (37-53); Lymphocytes # 2.7 10^3/uL (0.8-4.8); Lymphocytes % 24.7 %; Mean Corpuscular HGB Conc 32.3 g/dL (30-55); Mean Corpuscular Hemoglobin 29.2 pg (27-33); Mean Corpuscular Volume 90.2 fl (82-101); Mean Platelet Volume 12.9 fL (7.4-10.4); Monocytes # 1.1 10^3/uL (0.2-0.9); Monocytes % 10.3 %; Neutrophils # 6.73 10^3/uL (1.8-7.7); Neutrophils % 62.4 %; Nucleated Red Blood Cells % 0 %; Platelet Count 213 10^3/cmm (157-399); Red Blood Count 5.18 10^6/uL (3.85-5.65); Red Cell Distribution Width 13.2 % (12.1-15.1); White Blood Count 10.77 10^3/uL (3.29-11.43)
[2024-01-26 13:54] LABS: Alanine Aminotransferase 70 U/L (0-41); Albumin Level 4.3 g/dL (3.5-5.2); Alkaline Phosphatase 95 U/L (40-130); Anion Gap 15.9 (5-19); Aspartate Amino Transferase 51 U/L (0-40); Blood Urea Nitrogen 18 mg/dL (6-20); Calcium 9.6 mg/dL (8.5-10.5); Carbon Dioxide 25 mmol/L (22-29); Chloride 99 mmol/L (98-107); Creatinine Clr Calc Pharmacy 215.4912; Globulin 3.4 g/dL (1.3-4.6); Glomerular Filtration Rate 129.9 mL/min (90-130); Glucose 104 mg/dL (65-115); Lipase 15 U/L (13-60); Osmolality Calculated 284 mOsm/kg (285-295); Potassium 3.9 mmol/L (3.5-5.1); Sodium 136 mmol/L (136-145); Total Bilirubin 1.1 mg/dL (0.15-1.2); Total Protein 7.7 g/dL (6.6-8.7)
[2024-01-26 14:00] VITALS: BP 109/74; PULSE 89; RESP 16; O2SAT 98
[2024-01-26 14:00] LABS: Add Urine Microscopic? YES; Bilirubin Urine 1+ (Negative); Blood Urine Neg (Negative); Glucose Urine UA Norm (Normal); Ketones Urine 1+ (Negative); Leukocyte Esterase Urine Trace (Negative); Nitrate Urine Negative (Negative); Protein Urine Trace (Negative); Specific Gravity, Urine 1.015 (1.005-1.030); Urine Appearance Clear (CLEAR); Urine Color Dark Yellow (Yellow); Urobilinogen Urine 4 mg/dL (Negative); pH Urine 5 (5-7)
[2024-01-26 14:06] LABS: Add Urine Culture? No; Bacteria Urine 1+ /hpf; Mucus Urine 2+ /hpf; WBC Urine 0-4 /hpf (0-5)
--- NOTE | 2024-01-26 14:11 | CTR_ITS ---
PROCEDURE INFORMATION: Exam: CTA Chest With Contrast Exam date and time: 01/26/2024 2:44 PM Age: 33 years old Clinical indication: Pain; Other: Chest; Right-sided; Prior surgery; Surgery date: 1-6 months; Surgery type: Appendectomy, gallbladder, bariatric; Additional info: Pleuritic right sided chest and flank pain TECHNIQUE: Imaging protocol: Computed tomographic angiography of the chest with contrast. Exam focused on the arteries. 3D rendering (Not supervised by radiologist): MIP and/or 3D reconstructed images were created by the technologist. Radiation optimization: All CT scans at this facility use at least one of these dose optimization techniques: automated exposure control; mA and/or kV adjustment per patient size (includes targeted exams where dose is matched to clinical indication); or iterative reconstruction. Contrast material: [id number]; Contrast volume: 100 ml; Contrast route: INTRAVENOUS (IV); COMPARISON: CR (CHEST, ) 11/06/2023 6:54 PM RADIATION DOSE METRICS: Total DLP (mGy-cm): 1799.58 FINDINGS: Pulmonary arteries: Normal. No pulmonary emboli. Aorta: Unremarkable. No aortic aneurysm. No aortic dissection. Lungs: Unremarkable. No consolidation. No masses. Pleural spaces: Unremarkable. No pneumothorax. No pleural effusion. Heart: Unremarkable. No cardiomegaly. No pericardial effusion. Mediastinal space: A small amount pneumomediastinum is noted anteriorly. Lymph nodes: Unremarkable. No enlarged lymph nodes. Bones/joints: Unremarkable. No acute fracture. Soft tissues: Unremarkable. PROCEDURE INFORMATION: Exam: CT Abdomen And Pelvis With Contrast Exam date and time: 01/26/2024 2:44 PM Age: 33 years old Clinical indication: Pain; Other: Chest; Right-sided; Prior surgery; Surgery date: 1-6 months; Surgery type: Appendectomy, gallbladder, bariatric; Additional info: Pleuritic right sided chest and flank pain TECHNIQUE: Imaging protocol: Computed tomography of the abdomen and pelvis with contrast. Radiation optimization: All CT scans at this facility use at least one of these dose optimization techniques: automated exposure control; mA and/or kV adjustment per patient size (includes targeted exams where dose is matched to clinical indication); or iterative reconstruction. Contrast material: [id number]; Contrast volume: 100 ml; Contrast route: INTRAVENOUS (IV); COMPARISON: CT abdomen pelvis w con* [id number] 11/06/2023 9:05 PM RADIATION DOSE METRICS: Total DLP (mGy-cm): 1799.58 FINDINGS: Lungs: Lung bases are clear. No pleural effusion. Liver: See Gallbladder and biliary ducts finding. Gallbladder and biliary ducts: The gallbladder has been resected. A small amount of edema is noted in the gallbladder fossa as well as surrounding the lower tip of the liver. Pancreas: Normal. No ductal dilation. Spleen: Normal. No splenomegaly. Adrenal glands: Normal. No mass. Kidneys and ureters: Normal. No hydronephrosis. Stomach and bowel: There is evidence of previous gastric surgery. Appendix: No evidence of appendicitis. Intraperitoneal space: There are a few free peritoneal air bubbles noted superiorly and anteriorly. Vasculature: Unremarkable. No abdominal aortic aneurysm. Lymph nodes: Unremarkable. No enlarged lymph nodes. Urinary bladder: Unremarkable as visualized. Reproductive: Unremarkable as visualized. Bones/joints: Unremarkable. No acute fracture. Soft tissues: Unremarkable. CT/CT angio chest w abd pel w con IMPRESSION: Small pneumomediastinum which is felt to be due to recent abdominal surgery IMPRESSION: 1. Minimal postoperative pneumoperitoneum 2. Minimal edema involving the gallbladder fossa and surrounding liver related to recent gallbladder surgery
--- NOTE | 2024-01-26 14:12 | ED_ITS ---
HPI - Abdominal Pain 2 General: Chief Complaint: Abdominal Pain Stated Complaint: abd pain and right side pain Time Seen by Provider: 01/26/24 13:58 History of Present Illness: This patient is a 33 year old presenting with abdominal and right flank pain. His pain is worse when he takes in a breath. He has had multiple abdominal surgeries recently. He had a bariatric surgery in September - a duodenal switch - and has lost over 100 pounds since then. He also had his appendix out in November and his gallbladder out about 10 days ago. The first and last surgeries were done in [place] - the appendectomy was done here. He started having a constant sharp pain on his right side 2 days ago - and also had copious diarrhea overnight that night. He says the pain turns into a worse sharpness - like he is being stabbed - when he breaths in. He has not had vomiting. He denies urinary symptoms. he has a history of kidney stones but doesn't think this feels like a kidney stone. He denies fevers. He has had some lightheadedness with standing but his doctor thinks that is from his body trying to get used to the weight loss. No chest pain or leg pain or swelling. PFSH ED 2 PFSH: Medical History Type 2 diabetes mellitus Cellulitis Abscess of skin or subcutaneous tissue Bulging lumbar disc Major depression Prediabetes Obesity HTN (hypertension) Radiculopathy, lumbar region Right ureteral stone Surgical History Status post laparoscopic appendectomy S/P ureteral stent placement Family History Mother No problems noted. Father Hypertension Other Cancer Diabetes Social History Smoking and tobacco/nicotine status: former use of tobacco/nicotine Alcohol intake: never Marital status: Current occupational status: employed Physical Exam 2 Const: COMMON NORMALS: no acute distress, patient oriented x3, no limitations and alert GENERAL APPEARANCE: cooperative and comfortable HENMT: HEAD & SCALP: normal to inspection FACE & SINUS: normal facial exam Eye: GENERAL EYE: appearance normal, both eyes and all related structures Neck/C-Spine: COMMON NORMALS: supple, no meningeal signs and no JVD Chest: COMMONS NORMALS: normal inspection of the chest Resp: COMMON NORMALS: normal respiratory effort, No use of accessory muscles and clear to auscultation bilaterally AUSCULTATION: clear to auscultation bilaterally Cardio: COMMON NORMALS: no JVD, regular rate, regular rhythm and No murmurs present (Cardio) RATE: regular rate RHYTHM: regular rhythm GI: COMMON NORMALS: Soft to palpation INSPECTION: Yes other (multiple healing laparoscopy incisions, some bruising) PALPATION: Yes Soft to palpation and Yes Tenderness to palpation present (GI) (right flank from lower ribs to the iliac crest - along the midaxillary line) Details: RUQ : OTHER: no CVA tenderness Back/Pelvis: COMMON NORMALS: thoracic and lumbar spine normal to inspection Extremity: COMMON NORMALS: normal to inspection Neuro: COMMON NORMALS: patient oriented x3, moves all extremities, no focal motor deficits and no sensory deficits noted SENSORIUM/ORIENTATION: Yes alert MENINGEAL SIGNS: Yes no meningeal signs Psych: COMMON NORMALS: mental status grossly normal, cooperative and normal affect Skin: COMMON NORMALS: no rashes or lesions noted and turgor normal GENERAL SKIN EXAM: no rashes or lesions noted and turgor normal Course 2 Vital Signs: Vital signs: Vital Signs Temperature 98.1 F 01/26/24 12:44 Pulse Rate 89 01/26/24 14:00 Respiratory Rate 14 01/26/24 15:37 Blood Pressure 109/74 01/26/24 14:00 Pulse Oximetry 94 01/26/24 15:37 Oxygen Delivery Me thod Room Air 01/26/24 14:00 MDM - Abdominal Pain Medical Decision Making Three surgeries since September - new abdominal pain now. History of kidney stones but he thinks this seems different. Pleuritic nature of chest pain is concerning given his recent surgeries. Labs, EKG, CT chest/abd/pelvis pending. CT with a small amount of inflammatory change in the gallbladder fossa. LFTs fairly unremarkable. However the CT chest shows pockets of mediastinal air. 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 Unclear where the air is coming from. I did give a dose of Zosyn due to concern for possibility of a perforation. I explained my concerns with the patient and his and they understand. Lab Data 01/26/24 13:14 01/26/24 13:14 Labs/Radiology: Radiology Impressions Chest/Abdomen/Pelvis CT 01/26/24 14:11 IMPRESSION: Small pneumomediastinum which is felt to be due to recent abdominal surgery IMPRESSION: 1. Minimal postoperative pneumoperitoneum 2. Minimal edema involving the gallbladder fossa and surrounding liver related to recent gallbladder surgery Laboratory Results WBC 10.77 10^3/uL (3.29-11.43) 01/26/24 13:14 RBC 5.18 10^6/uL (3.85-5.65) 01/26/24 13:14 Hgb 15.10 g/dL (11.27-16.99) 01/26/24 13:14 Hct 46.7 % (37-53) 01/26/24 13:14 MCV 90.2 fl (82-101) 01/26/24 13:14 MCH 29.2 pg (27-33) 01/26/24 13:14 MCHC 32.3 g/dL (30-55) 01/26/24 13:14 RDW 13.2 % (12.1-15.1) 01/26/24 13:14 Plt Count 213 10^3/cmm (157-399) 01/26/24 13:14 MPV 12.9 fL (7.4-10.4) H 01/26/24 13:14 Neut % (Auto) 62.4 % 01/26/24 13:14 Lymph % (Auto) 24.7 % 01/26/24 13:14 [place] % (Auto) 10.3 % 01/26/24 13:14 Eos % (Auto) 1.8 % 01/26/24 13:14 Baso % (Auto) 0.5 % 01/26/24 13:14 Neut # (Auto) 6.73 10^3/uL (1.8-7.7) 01/26/24 13:14 Lymph # (Auto) 2.7 10^3/uL (0.8-4.8) 01/26/24 13:14 [place] # (Auto) 1.1 10^3/uL (0.2-0.9) H 01/26/24 13:14 Eos # (Auto) 0.2 10^3/uL (0.0-0.8) 01/26/24 13:14 Baso # (Auto) 0.1 10^3/uL (0.0-0.1) 01/26/24 13:14 Nucleated RBC % (auto) 0 % 01/26/24 13:14 Nucleated RBCs # 0.0 /100WBC 01/26/24 13:14 Sodium 136 mmol/L (136-145) 01/26/24 13:14 Potassium 3.9 mmol/L (3.5-5.1) 01/26/24 13:14 Chloride 99 mmol/L (98-107) 01/26/24 13:14 Carbon Dioxide 25 mmol/L (22-29) 01/26/24 13:14 Anion Gap 15.9 (5-19) 01/26/24 13:14 BUN 18 mg/dL (6-20) 01/26/24 13:14 Creatinine 0.7 mg/dL (0.7-1.2) 01/26/24 13:14 GFR Calculation 129.9 mL/min (90-130) 01/26/24 13:14 Glucose 104 mg/dL (65-115) 01/26/24 13:14 Calculated Osmolality 284 mOsm/kg (285-295) L 01/26/24 13:14 Calcium 9.6 mg/dL (8.5-10.5) 01/26/24 13:14 Total Bilirubin 1.1 mg/dL (0.15-1.2) 01/26/24 13:14 AST 51 U/L (0-40) H 01/26/24 13:14 ALT 70 U/L (0-41) H 01/26/24 13:14 Alkaline Phosphatase 95 U/L (40-130) 01/26/24 13:14 Total Protein 7.7 g/dL (6.6-8.7) 01/26/24 13:14 Albumin 4.3 g/dL (3.5-5.2) 01/26/24 13:14 Globulin 3.4 g/dL (1.3-4.6) 01/26/24 13:14 Lipase 15 U/L (13-60) 01/26/24 13:14 Urine Color Dark yellow (Yellow) A 01/26/24 13:12 Urine Appearance Clear (CLEAR) 01/26/24 13:12 Urine pH 5 (5-7) 01/26/24 13:12 Ur Specific [place] 1.015 (1.005-1.030) 01/26/24 13:12 Urine Protein Trace (Negative) 01/26/24 13:12 Urine Glucose (UA) Norm (Normal) 01/26/24 13:12 Urine Ketones 1+ (Negative) H 01/26/24 13:12 Urine Blood Neg (Negative) 01/26/24 13:12 Urine Nitrate Negative (Negative) 01/26/24 13:12 Urine Bilirubin 1+ (Negative) H 01/26/24 13:12 Urine Urobilinogen 4 mg/dL (Negative) H 01/26/24 13:12 Ur Leukocyte Esterase Trace (Negative) H 01/26/24 13:12 Urine RBC None /hpf (0-2) 01/26/24 13:12 Urine WBC 0-4 /hpf (0-5) H 01/26/24 13:12 Ur Squamous Epith Cells 5-10 /hpf (0-5) H 01/26/24 13:12 Calcium Oxalate Crystal 5-10 /hpf H 01/26/24 13:12 Amorphous Sediment Not Reportable 01/26/24 13:12 Urine Bacteria 1+ /hpf (NONE) H 01/26/24 13:12 Urine Mucus 2+ /hpf 01/26/24 13:12 All radiology interpretation(s) finalized by discharge Discharge Plan Discharge Patient Disposition: Xfer Short-Term Hosp Clinical Impression: Pneumomediastinum, Post-operative state Condition: Stable Discharge Orders: Transfer Out of Facility (Order); Ordered 01/26/24 Ordered By: Agnes Narayanan Referrals: Anmol Tolliver NP [Primary Care Provider] - Coding Level of Care Code ED Freezer Worker for Kelby Bean
[2024-01-26] MEDS: HYDROmorphone 1 mg/mL INJ 1 mL 0.5 MG IVP ×3 (14:27→18:12)
[2024-01-26] MEDS: ondansetron 2 mg/ML SDV 2 mL 4 MG IVP (14:27)
[2024-01-26] MEDS: iohexol 350 mg/mL 500 mL Btl (per mL) IV (14:45)
--- NOTE | 2024-01-26 15:10 | ECG_ITS ---
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 Measurements Intervals [place] Rate: 83 P: 5 MN: 167 QRS: 23 QRSD: 108 T: 29 QT: 374 QTc: 441 Interpretive Statements SINUS RHYTHM No previous ECG available for comparison Electronically Signed On 01-26-2024 18:39:50 CDT by Sergio Kurtz M.D. [id number]
[2024-01-26 15:30] VITALS: BP 114/60; PULSE 71; O2SAT 92
[2024-01-26] MEDS: sodium chloride 0.9% 1,000 ML 999 ML IV (15:35)
[2024-01-26 15:37] VITALS: RESP 14; O2SAT 94
[2024-01-26] MEDS: piperacillin-tazobactam 4.5 GM in sodium chloride 0.9% (plus) 50 ML IV (16:56)
[2024-01-26 17:00] VITALS: BP 124/87; PULSE 77; O2SAT 98
[2024-01-26 18:31] VITALS: BP 119/73; PULSE 75; O2SAT 100
== END 2024-01-26 18:35 | disposition short-term general hospital (02) ==
PROVIDERS: Emergency Medicine; Emergency Provider Emergency Medicine; PCP Clinical Nurse Specialist Adult Health
DX: J98.2 Interstitial emphysema (principal); I10 Essential (primary) hypertension; Z87.442 Personal history of urinary calculi; Z87.891 Personal history of nicotine dependence; Z98.84 Bariatric surgery status; Z90.49 Acquired absence of other specified parts of digestive tract
CPT/HCPCS: 36415; 71275; 74177; 80053; 81001; 83690; 85025; 87040; 93005; 96374; 96375; 96376; 99285; J1170; J2405; J2543; J7030; Q9967

== ENCOUNTER 2024-02-02 12:15 | Outpatient (CLI) | payer BC, SELFPAY ==
[2024-02-02 12:32] LABS: Basophils # 0.1 10^3/uL (0.0-0.1); Basophils % 0.5 %; Eosinophils # 0.2 10^3/uL (0.0-0.8); Eosinophils % 1.5 %; Hematocrit 42.6 % (37-53); Lymphocytes # 2.9 10^3/uL (0.8-4.8); Lymphocytes % 28.6 %; Mean Corpuscular HGB Conc 32.9 g/dL (30-55); Mean Corpuscular Hemoglobin 29.2 pg (27-33); Mean Corpuscular Volume 88.8 fl (82-101); Mean Platelet Volume 11.9 fL (7.4-10.4); Monocytes # 0.8 10^3/uL (0.2-0.9); Monocytes % 7.4 %; Neutrophils # 6.28 10^3/uL (1.8-7.7); Neutrophils % 61.8 %; Nucleated Red Blood Cells % 0 %; Platelet Count 219 10^3/cmm (157-399); Red Cell Distribution Width 12.9 % (12.1-15.1); White Blood Count 10.15 10^3/uL (3.29-11.43)
[2024-02-02 13:02] LABS: Alanine Aminotransferase 54 U/L (0-41); Albumin Level 4.1 g/dL (3.5-5.2); Alkaline Phosphatase 84 U/L (40-130); Anion Gap 15.6 (5-19); Aspartate Amino Transferase 45 U/L (0-40); Blood Urea Nitrogen 17 mg/dL (6-20); Calcium 9.3 mg/dL (8.5-10.5); Carbon Dioxide 22 mmol/L (22-29); Chloride 107 mmol/L (98-107); Chol HDL Ratio 3.77 mg/dL (1.0-5.00); Cholesterol 117 mg/dL (0-200); Globulin 3.2 g/dL (1.3-4.6); Glomerular Filtration Rate 155.2 mL/min (90-130); Glucose 110 mg/dL (65-115); HDL Cholesterol 31 mg/dL (60-100); LDL Cholesterol Calculated 66 mg/dL (50-129); LDL HDL Ratio 2.13 RATIO (0.00-3.22); Osmolality Calculated 294 mOsm/kg (285-295); Potassium 3.6 mmol/L (3.5-5.1); Sodium 141 mmol/L (136-145); Thyroid Stimulating Hormone 0.93 uIU/mL (0.27-4.20); Total Bilirubin 0.7 mg/dL (0.15-1.2); Total Protein 7.3 g/dL (6.6-8.7); Triglycerides 102 mg/dL (0-150)
== END 2024-02-02 12:16 | disposition home or self-care (01) ==
LOC: LAB 12:18
PROVIDERS: PCP Clinical Nurse Specialist Adult Health
DX: R42 Dizziness and giddiness (principal); Z98.84 Bariatric surgery status
CPT/HCPCS: 36415; 80053; 80061; 84443; 85025

== ENCOUNTER 2024-03-12 18:29 | Emergency (ER) | payer BC, SELFPAY ==
[2024-03-12] VITALS (8 sets, daily range): BP systolic 105–135; BP diastolic 67–81; PULSE 50–73; RESP 16–18; TEMP 36.7; O2SAT 94–98; BMI 33.0
--- NOTE | 2024-03-12 18:53 | ED_ITS ---
HPI - Male Genitourinary 2 General: Chief complaint: Urogenital-Male Stated complaint: Low back pain/kidney pain UC sent Time Seen by Provider: 03/12/24 18:38 Source: patient Mode of arrival: ambulatory Limitations: no limitations History of Present Illness: 33-year-old male states he had a history of kidney stones he states started having left flank pain started last night radiates into his testicle. States pain is currently 6 out of 10 denies any vomiting denies diarrhea denies any dysuria states this feels like his previous kidney stones Associated symptoms: Deny dysuria, nausea or vomiting Related Data Previous Rx's Medication Instructions Recorded lisinopril 20 mg tablet 20 mg PO DAILY #90 tabs 09/05/22 cyclobenzaprine 5 mg tablet 5 mg PO TID PRN muscle spasm #60 03/29/23 tabs gabapentin 300 mg capsule 600 mg (2 x 300 mg) PO .QHS #60 05/22/23 caps semaglutide 0.25 mg or 0.5 mg (2 0.25 mg (0.187 mL) SUBCUT .weekly 08/18/23 mg/1.5 mL) subcutaneous pen 4 weeks #1.5 mL injector ([employer]) terbinafine HCl 250 mg tablet 250 mg PO DAILY 14 days #14 tabs 10/16/23 triamcinolone acetonide 0.1 % 1 applic topical BID 2 weeks #80 10/16/23 topical cream grams docusate sodium 100 mg capsule 100 mg PO BID #14 caps 11/05/23 (Colace) hydrocodone 7.5 mg-acetaminophen 1 tab PO Q6H PRN pain #20 tabs 11/05/23 325 mg tablet ondansetron 8 mg disintegrating 8 mg PO Q8H PRN nausea and 11/07/23 tablet vomiting #20 tabs cephalexin 500 mg capsule 500 mg PO TID 7 days #21 caps 03/12/24 hydrocodone 5 mg-acetaminophen 325 1 tab PO Q6H PRN pain #14 tabs 03/12/24 mg tablet ondansetron 4 mg disintegrating 4 mg PO Q6H PRN nausea and 03/12/24 tablet vomiting #14 tabs Allergies Allergy/AdvReac Type Severity Reaction Status Date / Time metformin Allergy Intermediate Hot and Verified 03/12/24 18:15 sweaty Review of Systems 2 Const: Denies: fever(s), chills, body aches or change in appetite ENMT: Denies: throat pain or dental pain Card: Denies: chest pain Resp: Denies: dyspnea GI: Denies: abdominal pain, nausea, vomiting or diarrhea : Reports: flank pain; Denies: dysuria Musc: Denies: neck pain or back pain Skin/Breast: Denies: rash Neuro: Denies: headache(s) PFSH ED 2 PFSH: Medical History Type 2 diabetes mellitus Cellulitis Abscess of skin or subcutaneous tissue Bulging lumbar disc Major depression Prediabetes Obesity HTN (hypertension) Radiculopathy, lumbar region Right ureteral stone Surgical History Status post laparoscopic appendectomy S/P ureteral stent placement Family History Mother No problems noted. Father Hypertension Other Cancer Diabetes Social History Smoking and tobacco/nicotine status: unknown if used tobacco/nicotine Alcohol intake: never Marital status: Current occupational status: employed Physical Exam 2 Const: COMMON NORMALS: no acute distress, patient oriented x3 and healthy appearing HENMT: COMMON NORMALS: normocephalic and atraumatic HEAD & SCALP: n ormocephalic and atraumatic Eye: COMMON NORMALS: conjunctivae normal CONJUNCTIVA: Yes conjunctivae normal Neck/C-Spine: COMMON NORMALS: full ROM and supple Chest: COMMONS NORMALS: normal inspection of the chest Resp: COMMON NORMALS: normal respiratory effort Cardio: COMMON NORMALS: regular rate, regular rhythm and No murmurs present (Cardio) RATE: regular rate RHYTHM: regular rhythm GI: COMMON NORMALS: Normal to inspection, nondistended, normoactive bowel sounds present, Soft to palpation, non-tender and no masses PALPATION: Yes Soft to palpation Extremity: COMMON NORMALS: normal to inspection and full ROM Neuro: COMMON NORMALS: patient oriented x3, moves all extremities and no focal motor deficits Psych: COMMON NORMALS: mental status grossly normal, Normal thought process present and cooperative THOUGHT PROCESS: Normal thought process present Skin: COMMON NORMALS: no rashes or lesions noted and no wounds GENERAL SKIN EXAM: no rashes or lesions noted Course 2 Vital Signs: Vital signs: Vital Signs Temperature 98.0 F 03/12/24 18:44 Pulse Rate 73 03/12/24 18:44 Respiratory Rate 18 03/12/24 19:31 Blood Pressure 135/81 03/12/24 18:44 Pulse Oximetry 97 03/12/24 19:31 Oxygen Delivery Me thod Room Air 03/12/24 18:44 MDM - Male Medical Decision Making Patient presents here with flank pain he does have hematuria he has a kidney stone no stone in his ureter he could have recently passed a stone as well. Had some white cells possibly a UTI we will start Keflex just in case. He has no signs of infected stone. He had some chest pain here as well as atypical EKG his troponins are normal he stable for discharge follow-up with PCP return if worsening Medical Records I reviewed the patient's medical records. Lab Data I reviewed the patient's lab results. 03/12/24 18:42 03/12/24 18:42 Radiology Impressions Abdomen/Pelvis CT 03/12/24 18:53 IMPRESSION: 1. Tiny nonobstructing calculus in the left kidney. No hydronephrosis. 2. Status post Avel-en-Y gastric bypass with expected postsurgical changes. 3. Mild hepatosplenomegaly. 4. Tiny tree-in-bud nodules in the left lower lobe may represent an atypical infectious process. Chest X-Ray 03/12/24 21:00 IMPRESSION: No acute findings. Laboratory Results WBC 11.82 10^3/uL (3.29-11.43) H 03/12/24 18:42 RBC 4.65 10^6/uL (3.85-5.65) 03/12/24 18:42 Hgb 13.70 g/dL (11.27-16.99) 03/12/24 18:42 Hct 42.9 % (37-53) 03/12/24 18:42 MCV 92.3 fl (82-101) 03/12/24 18:42 MCH 29.5 pg (27-33) 03/12/24 18:42 MCHC 31.9 g/dL (30-55) 03/12/24 18:42 RDW 14.2 % (12.1-15.1) 03/12/24 18:42 Plt Count 199 10^3/cmm (157-399) 03/12/24 18:42 MPV 12.4 fL (7.4-10.4) H 03/12/24 18:42 Neut % (Auto) 70.4 % 03/12/24 18:42 Lymph % (Auto) 21.0 % 03/12/24 18:42 [place] % (Auto) 6.7 % 03/12/24 18:42 Eos % (Auto) 1.3 % 03/12/24 18:42 Baso % (Auto) 0.3 % 03/12/24 18:42 Neut # (Auto) 8.33 10^3/uL (1.8-7.7) H 03/12/24 18:42 Lymph # (Auto) 2.5 10^3/uL (0.8-4.8) 03/12/24 18:42 [place] # (Auto) 0.8 10^3/uL (0.2-0.9) 03/12/24 18:42 Eos # (Auto) 0.2 10^3/uL (0.0-0.8) 03/12/24 18:42 Baso # (Auto) 0.0 10^3/uL (0.0-0.1) 03/12/24 18:42 Nucleated RBC % (auto) 0 % 03/12/24 18:42 Nucleated RBCs # 0.0 /100WBC 03/12/24 18:42 Sodium 141 mmol/L (136-145) 03/12/24 18:42 Potassium 3.5 mmol/L (3.5-5.1) 03/12/24 18:42 Chloride 103 mmol/L (98-107) 03/12/24 18:42 Carbon Dioxide 27 mmol/L (22-29) 03/12/24 18:42 Anion Gap 14.5 (5-19) 03/12/24 18:42 BUN 14 mg/dL (6-20) 03/12/24 18:42 Creatinine 0.7 mg/dL (0.7-1.2) 03/12/24 18:42 GFR Calculation 129.9 mL/min (90-130) 03/12/24 18:42 Glucose 131 mg/dL (65-115) H 03/12/24 18:42 Calculated Osmolality 294 mOsm/kg (285-295) 03/12/24 18:42 Calcium 9.4 mg/dL (8.5-10.5) 03/12/24 18:42 Total Bilirubin 1.4 mg/dL (0.15-1.2) H 03/12/24 18:42 AST 25 U/L (0-40) 03/12/24 18:42 ALT 26 U/L (0-41) 03/12/24 18:42 Alkaline Phosphatase 117 U/L (40-130) 03/12/24 18:42 Troponin T Baseline < 6 ng/L (0-15) 03/12/24 18:42 Troponin T 120 Minute 6.00 ng/L (0-15) 03/12/24 21:18 Delta Troponin T 0.73771 ABS# (0-10) 03/12/24 21:18 Total Protein 6.9 g/dL (6.6-8.7) 03/12/24 18:42 Albumin 4.3 g/dL (3.5-5.2) 03/12/24 18:42 Globulin 2.6 g/dL (1.3-4.6) 03/12/24 18:42 Lipase 16 U/L (13-60) 03/12/24 18:42 Urine Color Red (Yellow) A 03/12/24 19:46 Urine Appearance Turbid (CLEAR) A 03/12/24 19:46 Urine pH 5.0 (5-7) 03/12/24 19:46 Ur Specific [place] 1.028 (1.005-1.030) 03/12/24 19:46 Urine Protein 2+ (Negative) A 03/12/24 19:46 Urine Glucose (UA) Negative (Normal) 03/12/24 19:46 Urine Ketones Trace (Negative) 03/12/24 19:46 Urine Blood 2+ (Negative) A 03/12/24 19:46 Urine Nitrate Not tested (Negative) A 03/12/24 19:46 Urine Bilirubin 2+ (Negative) H 03/12/24 19:46 Urine Urobilinogen 1.0 mg/dL (Negative) 03/12/24 19:46 Ur Leukocyte Esterase 2+ (Negative) A 03/12/24 19:46 Urine RBC >100 /hpf (0-2) H 03/12/24 19:46 Urine WBC 11-20 /hpf (0-5) H 03/12/24 19:46 Ur Squamous Epith Cells 0-4 /hpf (0-5) H 03/12/24 19:46 Amorphous Sediment Not Reportable 03/12/24 19:46 Urine Bacteria None /hpf (NONE) 03/12/24 19:46 Urine Mucus None /hpf 03/12/24 19:46 Urine Yeast 1+ /hpf H 03/12/24 19:46 All radiology interpretation(s) finalized by discharge EKG Data EKG 1: I personally reviewed and interpreted this EKG as follows: EKG Data: 03/12/24 EKG interpretation time: 20:40 Interpretation: sinus jessica hr [address] or t wave abnormalities qrs 104 qtc 420 Discharge Plan Discharge Patient Disposition: Home Clinical Impression: Flank pain, Hematuria Condition: Stable Prescriptions: New hydrocodone-acetaminophen 5-325 mg tablet 1 tab PO Q6H PRN (Reason: pain) Qty: 14 0RF cephalexin 500 mg capsule 500 mg PO TID 7 Days Qty: 21 0RF ondansetron 4 mg tablet,disintegrating 4 mg PO Q6H PRN (Reason: nausea and vomiting) Qty: 14 0RF No Action triamcinolone acetonide 0.1 % cream 1 applic topical BID 14 Days Qty: 80 3RF terbinafine HCl 250 mg tablet 250 mg PO DAILY 14 Days Qty: 14 0RF Rx Instructions: Take one tablet daily for 14 days cyclobenzaprine 5 mg tablet 5 mg PO TID PRN (Reason: muscle spasm) Qty: 60 0RF gabapentin 300 mg capsule 600 mg PO .QHS Qty: 60 0RF lisinopril 20 mg tablet 20 mg PO DAILY Qty: 90 3RF Ozempic 0.25 mg or 0.5 mg(2 mg/1.5 mL) pen injector 0.25 mg SUBCUT .weekly 28 Days Qty: 1.5 0RF Rx Instructions: 0.25mg weekly for week 1-4, increase to 0.5mg for week 5-8 ondansetron 8 mg tablet,disintegrating 8 mg PO Q8H PRN (Reason: nausea and vomiting) Qty: 20 0RF hydrocodone-acetaminophen 7.5-325 mg tablet 1 tab PO Q6H PRN (Reason: pain) Qty: 20 0RF Colace 100 mg capsule 100 mg PO BID Qty: 14 0RF Discharge Orders: Discharge ED (Routine); Ordered 03/12/24 Ordered By: Manny Laws Referrals: Anmol Tolliver FISHERIES SPECIALIST [Primary Care Provider] - 4-7 days Discharge Diet: Advance as tolerated Discharge Activity: Resume usual activity Patient Instructions: Kidney Stones (ED), Hematuria (ED), Opioid Safety Coding Level of Care Code ED Unit Operator for Kelby Bean
--- NOTE | 2024-03-12 18:53 | CTR_ITS ---
PROCEDURE INFORMATION: Exam: CT Abdomen And Pelvis Without Contrast Exam date and time: 03/12/2024 7:02 PM Age: 33 years old Clinical indication: Abdominal pain; Flank; Left; Additional info: L flank pain TECHNIQUE: Imaging protocol: Computed tomography of the abdomen and pelvis without contrast. Radiation optimization: All CT scans at this facility use at least one of these dose optimization techniques: automated exposure control; mA and/or kV adjustment per patient size (includes targeted exams where dose is matched to clinical indication); or iterative reconstruction. COMPARISON: CT angio chest w abd pel w con 01/26/2024 2:44 PM RADIATION DOSE METRICS: Total DLP (mGy-cm): 1088 FINDINGS: Lungs: Multiple tiny tree-in-bud nodules are seen in the left lower lobe. Liver: Hepatic steatosis. The liver is mildly enlarged. Gallbladder and biliary ducts: Status post cholecystectomy. Pancreas: Normal. No ductal dilation. Spleen: Mild splenomegaly. Adrenal glands: Normal. No mass. Kidneys and ureters: 2 mm nonobstructing calculus in the upper pole of the left kidney. No hydronephrosis. Stomach and bowel: Unremarkable. No obstruction. No mucosal thickening. Status post Avel-en-Y gastric bypass. Appendix: No evidence of appendicitis. Intraperitoneal space: Unremarkable. No free air. No significant fluid collection. Vasculature: Unremarkable. No abdominal aortic aneurysm. Lymph nodes: Unremarkable. No enlarged lymph nodes. Urinary bladder: Unremarkable as visualized. Reproductive: Unremarkable as visualized. Bones/joints: Unremarkable. No acute fracture. Soft tissues: Unremarkable. CT/CT kidney stone [id number] IMPRESSION: 1. Tiny nonobstructing calculus in the left kidney. No hydronephrosis. 2. Status post Avel-en-Y gastric bypass with expected postsurgical changes. 3. Mild hepatosplenomegaly. 4. Tiny tree-in-bud nodules in the left lower lobe may represent an atypical infectious process.
[2024-03-12 19:07] LABS: Alanine Aminotransferase 26 U/L (0-41); Albumin Level 4.3 g/dL (3.5-5.2); Alkaline Phosphatase 117 U/L (40-130); Anion Gap 14.5 (5-19); Aspartate Amino Transferase 25 U/L (0-40); Blood Urea Nitrogen 14 mg/dL (6-20); Calcium 9.4 mg/dL (8.5-10.5); Carbon Dioxide 27 mmol/L (22-29); Chloride 103 mmol/L (98-107); Creatinine Clr Calc Pharmacy 209.3277; Globulin 2.6 g/dL (1.3-4.6); Glomerular Filtration Rate 129.9 mL/min (90-130); Glucose 131 mg/dL (65-115); Lipase 16 U/L (13-60); Osmolality Calculated 294 mOsm/kg (285-295); Potassium 3.5 mmol/L (3.5-5.1); Sodium 141 mmol/L (136-145); Total Bilirubin 1.4 mg/dL (0.15-1.2); Total Protein 6.9 g/dL (6.6-8.7)
[2024-03-12 19:09] LABS: Basophils % 0.3 %; Eosinophils # 0.2 10^3/uL (0.0-0.8); Eosinophils % 1.3 %; Hematocrit 42.9 % (37-53); Lymphocytes # 2.5 10^3/uL (0.8-4.8); Mean Corpuscular HGB Conc 31.9 g/dL (30-55); Mean Corpuscular Hemoglobin 29.5 pg (27-33); Mean Corpuscular Volume 92.3 fl (82-101); Mean Platelet Volume 12.4 fL (7.4-10.4); Monocytes # 0.8 10^3/uL (0.2-0.9); Monocytes % 6.7 %; Neutrophils # 8.33 10^3/uL (1.8-7.7); Neutrophils % 70.4 %; Nucleated Red Blood Cells % 0 %; Platelet Count 199 10^3/cmm (157-399); Red Blood Count 4.65 10^6/uL (3.85-5.65); Red Cell Distribution Width 14.2 % (12.1-15.1); White Blood Count 11.82 10^3/uL (3.29-11.43)
[2024-03-12] MEDS: ondansetron 2 mg/ML SDV 2 mL 4 MG IVP (19:29)
[2024-03-12] MEDS: morphine 4 mg/mL SDV 1 mL IVP (19:31)
[2024-03-12 19:54] LABS: Charge for UA Resulting for Rev
[2024-03-12 19:56] LABS: Bilirubin Urine 2+ (Negative); Blood Urine 2+ (Negative); Glucose Urine UA Negative (Normal); Ketones Urine Trace (Negative); Leukocyte Esterase Urine 2+ (Negative); Protein Urine 2+ (Negative); Specific Gravity, Urine 1.028 (1.005-1.030); Urine Appearance Turbid (CLEAR)
[2024-03-12 20:20] LABS: Urine Color Red (Yellow)
[2024-03-12 20:24] LABS: Nitrate Urine Not Tested (Negative)
[2024-03-12 20:25] LABS: UA Slide Review UA Slide Review Perf
[2024-03-12 20:27] LABS: UA Manual Slide Review YES
[2024-03-12 20:29] LABS: Add Urine Culture? Yes; RBC Urine >100 /hpf (0-2); Squamous Epithelial Cell Urine 0-4 /hpf (0-5)
--- NOTE | 2024-03-12 20:36 | ECG_ITS ---
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 Measurements Intervals [place] Rate: 49 P: 44 ID: [id number] QRS: 48 QRSD: 104 T: 56 QT: 450 QTc: 409 Interpretive Statements SINUS BRADYCARDIA Compared to ECG 01/26/2024 15:10:24 Sinus rhythm no longer present Electronically Signed On 03-12-2024 23:33:14 CDT by Caroline Lee M.D. [id number]
--- NOTE | 2024-03-12 21:00 | XRR_ITS ---
PROCEDURE INFORMATION: Exam: XR Chest Exam date and time: 03/12/2024 9:05 PM Age: 33 years old Clinical indication: Angina; Additional info: Cp TECHNIQUE: Imaging protocol: Radiologic exam of the chest. Views: 1 view. COMPARISON: CT angio chest w abd pel w con 01/26/2024 2:44 PM FINDINGS: Lungs: Unremarkable. No consolidation. Pleural spaces: Unremarkable. No pleural effusion. No pneumothorax. Heart/Mediastinum: Unremarkable. No cardiomegaly. Bones/joints: Unremarkable. XR/XR chest 1V portable [id number] IMPRESSION: No acute findings.
[2024-03-12 21:01] LABS: Troponin(5th) Baseline < 6 ng/L (0-15)
[2024-03-12] MEDS: HYDROmorphone 1 mg/mL INJ 1 mL 0.5 MG IVP (21:28)
[2024-03-12] MEDS: sodium chloride 0.9% 1,000 ML 999 ML IV (21:32)
[2024-03-12 21:39] LABS: Troponin 5 2HR Delta 0.00001 ABS# (0-10)
== END 2024-03-12 22:22 | disposition home or self-care (01) ==
PROVIDERS: Emergency Provider Emergency Medicine; PCP Clinical Nurse Specialist Adult Health
DX: R10.9 Unspecified abdominal pain (principal); R31.9 Hematuria, unspecified; R00.1 Bradycardia, unspecified; Z79.85 Long-term (current) use of injectable non-insulin antidiabetic drugs; E11.9 Type 2 diabetes mellitus without complications; I10 Essential (primary) hypertension
CPT/HCPCS: 36415; 71045; 74176; 80053; 81003; 81015; 83690; 84484; 85025; 87086; 93005; 96361; 96374; 96375; 99285; J1170; J2270; J2405; J7030

== ENCOUNTER 2024-07-23 12:08 | Outpatient (CLI) | payer BC, SELFPAY | END 2024-07-23 12:09 | disposition home or self-care (01) | LOC: SPT 12:09 | PROVIDERS: PCP Clinical Nurse Specialist Adult Health; Visit Provider Podiatrist Foot & Ankle Surgery | DX: Z46.89 Encounter for fitting and adjustment of other specified devices (principal); E11.628 Type 2 diabetes mellitus with other skin complications; M72.2 Plantar fascial fibromatosis; Q66.71 Congenital pes cavus, right foot; Q66.72 Congenital pes cavus, left foot | CPT/HCPCS: L3030 ==

== ENCOUNTER 2024-10-24 03:31 | Emergency (ER) | payer BC, SELFPAY ==
[2024-10-24 03:32] VITALS: BP 107/68; PULSE 95; RESP 18; TEMP 38.4; O2SAT 98; BMI 26.2
--- NOTE | 2024-10-24 03:34 | ECG_ITS ---
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 Measurements Intervals [place] Rate: 88 P: 39 AL: 151 QRS: 47 QRSD: 96 T: 47 QT: 343 QTc: 415 Interpretive Statements SINUS RHYTHM Compared to ECG 03/12/2024 20:40:37 Sinus bradycardia no longer present Electronically Signed On 10-24-2024 17:34:24 CDT by Sergio Kurtz M.D. [id number]
--- NOTE | 2024-10-24 03:43 | W.ED.ABDPA2 ---
HPI - Abdominal Pain General: Chief Complaint: Abdominal Pain Stated Complaint: cp, abdomen pain Time Seen by Provider: 10/24/24 03:39 History of Present Illness: 34-year-old man who presents emergency room with chest pain and abdominal pain. This all started a couple of hours ago. He had some nausea. He has had some mild cough. Says it hurts when he breathes. He had some left upper chest pain. He has a temp of 101.1 on presentation. Related Data Previous Rx's ?Medication ?Instructions ?Recorded lisinopril 20 mg tablet 20 mg PO DAILY #90 tabs 09/05/22 cyclobenzaprine 5 mg tablet 5 mg PO TID PRN muscle spasm #60 03/29/23 tabs gabapentin 300 mg capsule 600 mg (2 x 300 mg) PO .QHS #60 05/22/23 caps semaglutide 0.25 mg or 0.5 mg (2 0.25 mg (0.187 mL) SUBCUT .weekly 08/18/23 mg/1.5 mL) subcutaneous pen 4 weeks #1.5 mL injector (Andre Phillipe) terbinafine HCl 250 mg tablet 250 mg PO DAILY 14 days #14 tabs 10/16/23 docusate sodium 100 mg capsule 100 mg PO BID #14 caps 11/05/23 (Colace) hydrocodone 7.5 mg-acetaminophen 1 tab PO Q6H PRN pain #20 tabs 11/05/23 325 mg tablet ondansetron 8 mg disintegrating 8 mg PO Q8H PRN nausea and 11/07/23 tablet vomiting #20 tabs hydrocodone 5 mg-acetaminophen 325 1 tab PO Q6H PRN pain #14 tabs 03/12/24 mg tablet ondansetron 4 mg disintegrating 4 mg PO Q6H PRN nausea and 03/12/24 tablet vomiting #14 tabs Sole supports #1 ea 06/26/24 triamcinolone acetonide 0.1 % 1 applic topical BID 2 weeks #80 08/12/24 topical cream grams levofloxacin 750 mg tablet 750 mg PO DAILY 7 days #7 tabs 10/24/24 Allergies Allergy/AdvReac Type Severity Reaction Status Date / Time metformin Allergy Intermediate Hot and Verified 10/24/24 03:40 sweaty Review of Systems Narrative: Constitutional symptoms: Negative except as documented in HPI. Skin symptoms: Negative except as documented in HPI. Eye symptoms: Negative except as documented in HPI. ENMT symptoms: Negative except as documented in HPI. Respiratory symptoms: Negative except as documented in HPI. Cardiovascular symptoms: Negative except as documented in HPI. Gastrointestinal symptoms: Negative except as documented in HPI. Genitourinary symptoms: Negative except as documented in HPI. Musculoskeletal symptoms: Negative except as documented in HPI. Neurologic symptoms: Negative except as documented in HPI. Psychiatric symptoms: Negative except as documented in HPI. Endocrine symptoms: Negative except as documented in HPI. PFSH ED PFSH: Medical History Type 2 diabetes mellitus Cellulitis Abscess of skin or subcutaneous tissue Bulging lumbar disc Major depression Prediabetes Obesity HTN (hypertension) Radiculopathy, lumbar region Right ureteral stone Surgical History Status post laparoscopic appendectomy S/P ureteral stent placement Family History Mother No problems noted. Father Hypertension Other Cancer Diabetes Social History Smoking and tobacco/nicotine status: former use of tobacco/nicotine Alcohol intake: never Marital status: Current occupational status: employed Physical Exam Narrative: EXAM NARRATIVE: General: Alert, no acute distress. Skin: Warm, dry. Head: Normocephalic, atraumatic. Neck: Supple, trachea midline. Eye: Extraocular movements are intact. Ears, nose, mouth and throat: mucosa moist. Cardiovascular: Regular, Normal peripheral perfusion. Respiratory: Lungs are clear to auscultation, respirations are non-labored, breath sounds are equal, Symmetrical chest wall expansion. Gastrointestinal: Soft, Nontender, Non distended Musculoskeletal: Normal ROM, no deformity. Neurological: Alert and oriented, No focal neurological deficit observed. Psychiatric: Cooperative, appropriate mood & affect. Course Vital Signs: Vital signs: Vital Signs Temperature 101.1 F H 10/24/24 03:32 Pulse Rate 97 10/24/24 04:54 Respiratory Rate 18 10/24/24 03:32 Blood Pressure 107/68 10/24/24 04:54 Pulse Oximetry 97 10/24/24 04:54 Oxygen Delivery Me thod Room Air 10/24/24 04:54 MDM - Abdominal Pain Medical Decision Making EKG: Time 3:34 AM. Rate 88. Normal sinus rhythm, No ST-T changes, no ectopy, normal GA & QRS intervals, This was reviewed and interpreted by myself the ER physician at 3:38 AM. Lab Review: Laboratory results were reviewed and interpreted by myself the emergency room physician. No leukocytosis. No anemia. No renal failure. Liver enzymes are normal. Flu COVID and RSV are negative. Urinalysis is negative. I reviewed the patient's medical record. Chest x-ray: Some haziness over in the right lower lobe either pneumonitis or pneumonia. Films were interpreted by myself the emergency room provider and pending final radiology review. Reexamination: Patient remained stable. No increased work of breathing. No altered mental status. No focal motor deficits. Assessment and plan: Pneumonia ? IV Levaquin in the emergency room - Discharged home - Discussed plan with patient. Answered any questions. - Evaluation and treatment of this problem were appropriate in the emergency setting. Lab Data 10/24/24 03:40 10/24/24 03:40 Labs/Radiology: Laboratory Results WBC 7.87 10^3/uL (3.29-11.43) 10/24/24 03:40 RBC 4.67 10^6/uL (3.85-5.65) 10/24/24 03:40 Hgb 14.00 g/dL (11.27-16.99) 10/24/24 03:40 Hct 43.4 % (37-53) 10/24/24 03:40 MCV 92.9 fl (82-101) 10/24/24 03:40 MCH 30.0 pg (27-33) 10/24/24 03:40 MCHC 32.3 g/dL (30-55) 10/24/24 03:40 RDW 12.3 % (12.1-15.1) 10/24/24 03:40 Plt Count 173 10^3/cmm (157-399) 10/24/24 03:40 MPV 11.5 fL (7.4-10.4) H 10/24/24 03:40 Neut % (Auto) 70.0 % 10/24/24 03:40 Lymph % (Auto) 22.4 % 10/24/24 03:40 [place] % (Auto) 5.2 % 10/24/24 03:40 Eos % (Auto) 1.7 % 10/24/24 03:40 Baso % (Auto) 0.4 % 10/24/24 03:40 Neut # (Auto) 5.52 10^3/uL (1.8-7.7) 10/24/24 03:40 Lymph # (Auto) 1.8 10^3/uL (0.8-4.8) 10/24/24 03:40 [place] # (Auto) 0.4 10^3/uL (0.2-0.9) 10/24/24 03:40 Eos # (Auto) 0.1 10^3/uL (0.0-0.8) 10/24/24 03:40 Baso # (Auto) 0.0 10^3/uL (0.0-0.1) 10/24/24 03:40 Nucleated RBC % (auto) 0 % 10/24/24 03:40 Nucleated RBCs # 0.0 /100WBC 10/24/24 03:40 Sodium 141 mmol/L (136-145) 10/24/24 03:40 Potassium 4.1 mmol/L (3.5-5.1) 10/24/24 03:40 Chloride 103 mmol/L (98-107) 10/24/24 03:40 Carbon Dioxide 30 mmol/L (22-29) H 10/24/24 03:40 Anion Gap 12.1 (5-19) 10/24/24 03:40 BUN 15 mg/dL (6-20) 10/24/24 03:40 Creatinine 0.7 mg/dL (0.7-1.2) 10/24/24 03:40 GFR Calculation 129.1 mL/min (90-130) 10/24/24 03:40 Glucose 97 mg/dL (65-115) 10/24/24 03:40 Calculated Osmolality 293 mOsm/kg (285-295) 10/24/24 03:40 Lactic Acid 1.5 mmol/L (0.5-2.2) 10/24/24 03:40 Calcium 9.0 mg/dL (8.5-10.5) 10/24/24 03:40 Total Bilirubin 0.6 mg/dL (0.15-1.2) 10/24/24 03:40 AST 19 U/L (0-40) 10/24/24 03:40 ALT 15 U/L (0-41) 10/24/24 03:40 Alkaline Phosphatase 139 U/L (40-130) H 10/24/24 03:40 Troponin T Baseline < 6 ng/L (0-15) 10/24/24 03:40 C-Reactive Protein 3.0 mg/L (0.0-4.9) 10/24/24 03:40 Total Protein 6.6 g/dL (6.6-8.7) 10/24/24 03:40 Albumin 4.3 g/dL (3.5-5.2) 10/24/24 03:40 Globulin 2.3 g/dL (1.3-4.6) 10/24/24 03:40 Lipase 21 U/L (13-60) 10/24/24 03:40 Urine Color Yellow (Yellow) 10/24/24 03:45 Urine Appearance Clear (CLEAR) 10/24/24 03:45 Urine pH 8 (5-7) A 10/24/24 03:45 Ur Specific [place] 1.010 (1.005-1.030) 10/24/24 03:45 Urine Protein Neg (Negative) 10/24/24 03:45 Urine Glucose (UA) Norm (Normal) 10/24/24 03:45 Urine Ketones Negative (Negative) 10/24/24 03:45 Urine Blood Neg (Negative) 10/24/24 03:45 Urine Nitrate Negative (Negative) 10/24/24 03:45 Urine Bilirubin Neg (Negative) 10/24/24 03:45 Urine Urobilinogen 1 mg/dL (Negative) H 10/24/24 03:45 Ur Leukocyte Esterase Negative (Negative) 10/24/24 03:45 Urine RBC 0-2 /hpf (0-2) 10/24/24 03:45 Urine WBC 0-5 /hpf (0-5) 10/24/24 03:45 Ur Squamous Epith Cells 0-5 /hpf (0-5) 10/24/24 03:45 Amorphous Sediment Not Reportable 10/24/24 03:45 Urine Bacteria None seen /hpf (NONE) 10/24/24 03:45 Hyaline Casts 0-4 /lpf H 10/24/24 03:45 Influenza A (PCR) Negative (Negative) 10/24/24 03:43 Influenza Type B (PCR) Negative (Negative) 10/24/24 03:43 RSV (PCR) Negative (Negative) 10/24/24 03:43 SARS-CoV-2 (PCR) Negative (Negative) 10/24/24 03:43 XR interpretation done by ED provider, pending radiology final review Discharge Plan Discharge Patient Disposition: Home Clinical Impression: Pneumonia Condition: Stable Prescriptions: New levofloxacin 750 mg tablet 750 mg PO DAILY 7 Days Qty: 7 0RF No Action terbinafine HCl 250 mg tablet 250 mg PO DAILY 14 Days Qty: 14 0RF Rx Instructions: Take one tablet daily for 14 days (DME) Sole supports See Rx Instructions .Route .MEDSUPPLY Qty: 1 0RF Rx Instructions: As directed triamcinolone acetonide 0.1 % cream 1 applic topical BID 14 Days Qty: 80 3RF cyclobenzaprine 5 mg tablet 5 mg PO TID PRN (Reason: muscle spasm) Qty: 60 0RF gabapentin 300 mg capsule 600 mg PO .QHS Qty: 60 0RF lisinopril 20 mg tablet 20 mg PO DAILY Qty: 90 3RF Ozempic 0.25 mg or 0.5 mg(2 mg/1.5 mL) pen injector 0.25 mg SUBCUT .weekly 28 Days Qty: 1.5 0RF Rx Instructions: 0.25mg weekly for week 1-4, increase to 0.5mg for week 5-8 ondansetron 8 mg tablet,disintegrating 8 mg PO Q8H PRN (Reason: nausea and vomiting) Qty: 20 0RF hydrocodone-acetaminophen 7.5-325 mg tablet 1 tab PO Q6H PRN (Reason: pain) Qty: 20 0RF Colace 100 mg capsule 100 mg PO BID Qty: 14 0RF hydrocodone-acetaminophen 5-325 mg tablet 1 tab PO Q6H PRN (Reason: pain) Qty: 14 0RF ondansetron 4 mg tablet,disintegrating 4 mg PO Q6H PRN (Reason: nausea and vomiting) Qty: 14 0RF Discharge Orders: Discharge ED (Routine); Ordered 10/24/24 Ordered By: Xiao Love Referrals: Anmol Tolliver, PRORATION CLERK [Primary Care Provider] - Discharge Diet: Usual diet Discharge Activity: Increase activity as tolerated Patient Instructions: Pneumonia (ED), Opioid Safety, Pain Management Activity Restrictions/Additional Instructions: Thank you for choosing [facility] for your healthcare needs today. Please realize this is an emergency room and that we are providing you with a medical screening exam and this may not be complete and all inclusive of all the testing and or work up that you may need to determine your ailment or severity of your illness. You have been screened and evaluated and felt safe for discharge. Health conditions do change or evolve sometimes and as such it is important that you follow up with your Primary Doctor to be re checked, 3-5 days is a general good time frame for follow up. You are always welcome to return to the ED for re assessment if your symptoms are worsening or you have new concerns Print Language: Tunisian Coding Level of Care Code ED Periodicals Library Assistant for Kelby Bean
[2024-10-24 03:52] LABS: Basophils % 0.4 %; Eosinophils # 0.1 10^3/uL (0.0-0.8); Eosinophils % 1.7 %; Hematocrit 43.4 % (37-53); Lymphocytes # 1.8 10^3/uL (0.8-4.8); Lymphocytes % 22.4 %; Mean Corpuscular HGB Conc 32.3 g/dL (30-55); Mean Corpuscular Volume 92.9 fl (82-101); Mean Platelet Volume 11.5 fL (7.4-10.4); Monocytes # 0.4 10^3/uL (0.2-0.9); Monocytes % 5.2 %; Neutrophils # 5.52 10^3/uL (1.8-7.7); Nucleated Red Blood Cells % 0 %; Platelet Count 173 10^3/cmm (157-399); Red Blood Count 4.67 10^6/uL (3.85-5.65); Red Cell Distribution Width 12.3 % (12.1-15.1); White Blood Count 7.87 10^3/uL (3.29-11.43)
[2024-10-24 04:10] LABS: Troponin(5th) Baseline < 6 ng/L (0-15)
[2024-10-24 04:11] LABS: Lactic Sepsis W/Reflex 1.5 mmol/L (0.5-2.2)
[2024-10-24 04:12] LABS: Alanine Aminotransferase 15 U/L (0-41); Albumin Level 4.3 g/dL (3.5-5.2); Alkaline Phosphatase 139 U/L (40-130); Anion Gap 12.1 (5-19); Aspartate Amino Transferase 19 U/L (0-40); Blood Urea Nitrogen 15 mg/dL (6-20); Carbon Dioxide 30 mmol/L (22-29); Chloride 103 mmol/L (98-107); Creatinine Clr Calc Pharmacy 186.7653; Globulin 2.3 g/dL (1.3-4.6); Glomerular Filtration Rate 129.1 mL/min (90-130); Glucose 97 mg/dL (65-115); Lipase 21 U/L (13-60); Osmolality Calculated 293 mOsm/kg (285-295); Potassium 4.1 mmol/L (3.5-5.1); Sodium 141 mmol/L (136-145); Total Bilirubin 0.6 mg/dL (0.15-1.2); Total Protein 6.6 g/dL (6.6-8.7)
[2024-10-24 04:31] LABS: Influenza A NEGATIVE (Negative); Influenza B NEGATIVE (Negative); Respiratory Syncytial Virus Ce NEGATIVE (Negative); SARS-CoV-2 PCR NEGATIVE (Negative)
[2024-10-24 04:36] LABS: Bacteria Urine None Seen /hpf; Hyaline Casts Urine 0-4 /lpf; RBC Urine 0-2 /hpf (0-2); Squamous Epithelial Cell Urine 0-5 /hpf (0-5); WBC Urine 0-5 /hpf (0-5)
[2024-10-24 04:39] LABS: Urine Appearance Clear (CLEAR); Urine Color Yellow (Yellow)
[2024-10-24 04:40] LABS: Bilirubin Urine Neg (Negative); Blood Urine Neg (Negative); Glucose Urine UA Norm (Normal); Ketones Urine Negative (Negative); Leukocyte Esterase Urine Negative (Negative); Nitrate Urine Negative (Negative); Protein Urine Neg (Negative); Urobilinogen Urine 1 mg/dL (Negative); pH Urine 8 (5-7)
--- NOTE | 2024-10-24 04:43 | XRR_ITS ---
PROCEDURE INFORMATION: Exam: XR Chest Exam date and time: 10/24/2024 4:46 AM Age: 34 years old Clinical indication: Chest wall pain; Additional info: Chest pain TECHNIQUE: Imaging protocol: Radiologic exam of the chest. Views: 1 view. COMPARISON: CR XR chest 1V portable [id number] 03/12/2024 9:05 PM FINDINGS: Lungs: Mild patchy infiltrate in the right lower lobe. Pleural spaces: Unremarkable. No pleural effusion. No pneumothorax. Heart/Mediastinum: Unremarkable. No cardiomegaly. Bones/joints: Unremarkable. XR/XR chest 1V portable [id number] IMPRESSION: Mild right lower lobe infiltrate.
[2024-10-24] MEDS: acetaminophen 500 mg Tablet 1000 MG PO (04:53)
[2024-10-24 04:54] VITALS: BP 107/68; PULSE 97; O2SAT 97
[2024-10-24] MEDS: levofloxacin-dextrose 5 % 750 MG/150 ML PREMIX 100 MG IV (05:07)
[2024-10-24 06:18] VITALS: BP 117/52; PULSE 77; O2SAT 96
[2024-10-24 06:38] VITALS: BP 117/52; PULSE 88; O2SAT 96
== END 2024-10-24 06:39 | disposition home or self-care (01) ==
PROVIDERS: Emergency Provider Emergency Medicine; PCP Clinical Nurse Specialist Adult Health
DX: J18.9 Pneumonia, unspecified organism (principal); Z11.52 Encounter for screening for COVID-19; Z87.891 Personal history of nicotine dependence; E11.9 Type 2 diabetes mellitus without complications; I10 Essential (primary) hypertension
CPT/HCPCS: 71045; 80053; 81001; 83605; 83690; 84484; 85025; 86140; 87637; 93005; 96365; 96366; 99285; J1956; J9999